=== PATIENT | male | born 1945 | race Two or more races ===

== ENCOUNTER 2018-06-15 16:40 | Emergency (ER) | payer BC, OTHER ==
[~2018-06-15] VITALS: Ht 167.6 cm; Wt 77.1 kg
[~2018-06-15 16:40] MED LIST: ASPI-630 PO; ASPI325T70 PO; HYDR-971 PO; INSU100I17 SQ; INSU100I27 SQ; INSU100V13 SQ; INSU100V31 SQ; LISI-338 PO; LISI10TA2 PO; METF10003 PO; METO25TA4 PO; PANT40TA5 PO; SIMV40TA3 PO
[2018-06-15 16:54] VITALS: BP 178/77
[2018-06-15 17:43] LABS: BASO # 0.1 x10^3/uL (0.0-0.2); BASO % 1 % (0-3); EOS # 0.2 x10^3/uL (0.0-0.7); EOS % 3 % (0-3); HEMATOCRIT 35.1 % (39.0-53.0); HEMOGLOBIN 11.7 g/dL (13.0-17.5); LYMPH # 1.6 x10^3/uL (1.0-4.8); LYMPH % 22 % (24-48); MEAN CORPUSCULAR HEMOGLOBIN 30 pg (25-35); MEAN CORPUSCULAR HGB CONC 33 g/dL (31-37); MEAN CORPUSCULAR VOLUME 89 fL (79-100); MONO # 0.6 x10^3/uL (0.0-1.1); MONO % 9 % (0-9); NEUT # 4.8 x10^3uL (1.8-7.7); NEUT % 66 % (31-73); PLATELET COUNT 227 x10^3/uL (140-400); RED BLOOD COUNT 3.96 x10^6/uL (4.30-5.70); RED CELL DISTRIBUTION WIDTH 14.5 % (11.5-14.5); WHITE BLOOD COUNT 7.3 x10^3/uL (4.0-11.0)
--- NOTE | 2018-06-15 17:43 | EKG ---
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
[2018-06-15 17:58] LABS: CALCIUM 8.8 mg/dL (8.5-10.1); CREATININE 1.4 mg/dL (0.7-1.3); GFR 49.5; POTASSIUM 4.5 mmol/L (3.5-5.1)
[2018-06-15 18:06] LABS: ALBUMIN 3.6 g/dL (3.4-5.0); ALBUMIN/GLOBULIN RATIO 0.9 (1.0-1.7); TOTAL BILIRUBIN 0.4 mg/dL (0.2-1.0); TOTAL PROTEIN 7.7 g/dL (6.4-8.2)
[2018-06-15] MEDS ORDERED: IV NORMAL SALINE 1000ML BAG 1,000 ML IV ONE (18:30)
--- NOTE | 2018-06-15 18:54 | RAD ---
EXAM: Cervical spine CT without contrast. HISTORY: Pain. TECHNIQUE: Computed tomographic images of the cervical spine were obtained without contrast. Multiplanar reformatting was performed. *One or more of the following individualized dose reduction techniques were utilized for this examination: 1. Automated exposure control. 2. Adjustment of the mA and/or kV according to patient size. 3. Use of iterative reconstruction technique. COMPARISON: None. FINDINGS: There is cervical curvature due to thoracic scoliosis. There is 3 mm anterolisthesis of C4 on C5, 2 mm retrolisthesis of C5 on C6 and 4 mm anterolisthesis of C7 on T1. There is degenerative endplate remodeling with disc space narrowing and osteophytosis primarily at C5-C6 and C6-C7. There are multiple endplate Schmorl's nodes. There is advanced facet arthropathy at multiple levels. There is no suspicious osseous lesion. There is no acute or subacute fracture. At C2-C3, there is a disc bulge. There is mild left facet arthropathy. There is mild left foraminal stenosis. At C3-C4, there is a posterior central disc protrusion superimposed on a disc bulge and endplate remodeling. There is mild right and moderate left facet arthropathy. There is uncovertebral arthropathy. There is no stenosis. At C4-C5, there is a posterior central disc protrusion superimposed on a disc bulge and endplate osteophytosis. There is mild right and moderate left facet arthropathy. There is uncovertebral arthropathy. There is mild left foraminal stenosis. At C5-C6, there is a left paracentral disc protrusion superimposed on a disc bulge and endplate osteophytosis. There is mild left facet arthropathy. There is left greater than right uncovertebral therapy. There is moderate left foraminal stenosis. At C6-C7, there is a disc bulge and endplate osteophytosis. There is no stenosis. IMPRESSION: 1. Multilevel degenerative change within the cervical spine, resulting in stenosis as described above. 2. Cervical curvature due to thoracic scoliosis and mild multilevel listhesis. 3. No acute osseous finding. Electronically signed by: Zaira Arevalo MD (06/15/2018 6:51 PM) [facility]
[2018-06-15] MEDS ORDERED: HYDROcodone/APAP 5/325MG 1 TAB TABLET PO ONE (19:15)
[2018-06-15] MEDS ORDERED: HYDR-971 PO (20:22)
--- NOTE | 2018-06-15 20:22 | PHYS DOC ---
Past Medical History Past Medical History: Diabetes-Type II, High Cholesterol, Hypertension Past Surgical History: Coronary Bypass Surgery, Other Additional Past Surgical Histo: Hernia, tooth extractions Alcohol Use: Occasionally Drug Use: None Adult General Chief Complaint Chief Complaint: Neck Pain HPI HPI Patient is a 72 year old male who presents with neck pain to the left side is now shooting up into his head. The patient states that it is worse when he turns his head. They are concerned because he has a history of open-heart surgery and they state that his only complaint at that time was pain radiating up into the left side of his neck. He denies chest pain, shortness of breath or diaphoresis. Review of Systems Review of Systems Constitutional: Denies fever or chills [] Respiratory: Denies cough or shortness of breath [] Cardiovascular: No additional information not addressed in HPI [] GI: Denies abdominal pain, nausea, vomiting, bloody stools or diarrhea [] : Denies dysuria or hematuria [] Musculoskeletal: See history of present illness Integument: Denies rash or skin lesions [] Neurologic: Denies headache, focal weakness or sensory changes [] Endocrine: Denies polyuria or polydipsia [] All other systems were reviewed and found to be within normal limits, except as documented in this note. Current Medications Current Medications Current Medications Medications (Trade) Dose Ordered Sig/[facility] Start Time Stop Time Status Last Admin Dose Admin Acetaminophen/ Hydrocodone Bitart (Lortab 5/325) 1 tab 1X ONCE 06/15/18 19:15 06/15/18 19:16 DC 06/15/18 19:30 1 TAB Sodium Chloride 1,000 ml @ 1,000 mls/hr 1X ONCE 06/15/18 18:30 06/15/18 19:29 DC 06/15/18 19:06 1,000 MLS/HR Allergies Allergies Allergies Coded Allergies Type Severity Reaction Last Updated Verified No Known Drug Allergies 03/14/17 No Physical Exam Physical Exam Constitutional: Well developed, well nourished, no acute distress, non-toxic appearance. [] Neck: Tenderness over left trapezius, no gross deformities noted, point spinal tenderness noted Cardiovascular:Heart rate regular rhythm, no murmur [] Lungs & Thorax: Bilateral breath sounds clear to auscultation [] Abdomen: Bowel sounds normal, soft, no tenderness, no masses, no pulsatile masses. [] Skin: Warm, dry, no erythema, no rash. [] Neurologic: Alert and oriented X 3, normal motor function, normal sensory function, no focal deficits noted. [] Psychologic: Affect normal, judgement normal, mood normal. [] Current Patient Data Vital Signs Vital Signs Date Time Temp Pulse Resp B/P (MAP) Pulse Ox O2 Delivery O2 Flow Rate FiO2 06/15/18 19:30 20 97 Room Air 06/15/18 16:54 97.9 68 178/77 (110) 97.9 Lab Values Laboratory Tests Test 06/15/18 17:30 White Blood Count 7.3 x10^3/uL (4.0-11.0) Red Blood Count 3.96 x10^6/uL (4.30-5.70) L Hemoglobin 11.7 g/dL (13.0-17.5) L Hematocrit 35.1 % (39.0-53.0) L Mean Corpuscular Volume 89 fL (79-100) Mean Corpuscular Hemoglobin 30 pg (25-35) Mean Corpuscular Hemoglobin Concent 33 g/dL (31-37) Red Cell Distribution Width 14.5 % (11.5-14.5) Platelet Count 227 x10^3/uL (140-400) Neutrophils (%) (Auto) 66 % (31-73) Lymphocytes (%) (Auto) 22 % (24-48) L Monocytes (%) (Auto) 9 % (0-9) Eosinophils (%) (Auto) 3 % (0-3) Basophils (%) (Auto) 1 % (0-3) Neutrophils # (Auto) 4.8 x10^3uL (1.8-7.7) Lymphocytes # (Auto) 1.6 x10^3/uL (1.0-4.8) Monocytes # (Auto) 0.6 x10^3/uL (0.0-1.1) Eosinophils # (Auto) 0.2 x10^3/uL (0.0-0.7) Basophils # (Auto) 0.1 x10^3/uL (0.0-0.2) Sodium Level 133 mmol/L (136-145) L Potassium Level 4.5 mmol/L (3.5-5.1) Chloride Level 101 mmol/L (98-107) Carbon Dioxide Level 22 mmol/L (21-32) Anion Gap 10 (6-14) Blood Urea Nitrogen 32 mg/dL (8-26) H Creatinine 1.4 mg/dL (0.7-1.3) H Estimated GFR (Cockcroft-Gault) 49.5 BUN/Creatinine Ratio 23 (6-20) H Glucose Level 377 mg/dL (70-99) H Calcium Level 8.8 mg/dL (8.5-10.1) Total Bilirubin 0.4 mg/dL (0.2-1.0) Aspartate Amino Transferase (AST) 22 U/L (15-37) Alanine Aminotransferase (ALT) 44 U/L (16-63) Alkaline Phosphatase 66 U/L (46-116) Creatine Kinase 167 U/L (39-308) Creatine Kinase MB (Mass) 2.2 ng/mL (0.0-3.6) Creatine Kinase MB Relative Index 1.3 % (0-4) Troponin I Quantitative < 0.017 ng/mL (0.000-0.055) Total Protein 7.7 g/dL (6.4-8.2) Albumin 3.6 g/dL (3.4-5.0) Albumin/Globulin Ratio 0.9 (1.0-1.7) L Laboratory Tests 06/15/18 17:30 Laboratory Tests 06/15/18 17:30 EKG EKG [] Radiology/Procedures Radiology/Procedures []Signed PATIENT: LONNY FIELD ACCOUNT: [id number] : 1945 LOCATION: ER AGE: 72 SEX: M EXAM STATUS: REG ER ORD. PHYSICIAN: MATILDE CHURCHILL APRN REASON: neck pain PROCEDURE: CT CERVICAL SPINE WO CONTRAST EXAM: Cervical spine CT without contrast. HISTORY: Pain. TECHNIQUE: Computed tomographic images of the cervical spine were obtained without contrast. Multiplanar reformatting was performed. *One or more of the following individualized dose reduction techniques were utilized for this examination: 1. Automated exposure control. 2. Adjustment of the mA and/or kV according to patient size. 3. Use of iterative reconstruction technique. COMPARISON: None. FINDINGS: There is cervical curvature due to thoracic scoliosis. There is 3 mm anterolisthesis of C4 on C5, 2 mm retrolisthesis of C5 on C6 and 4 mm anterolisthesis of C7 on T1. There is degenerative endplate remodeling with disc space narrowing and osteophytosis primarily at C5-C6 and C6-C7. There are multiple endplate Schmorl's nodes. There is advanced facet arthropathy at multiple levels. There is no suspicious osseous lesion. There is no acute or subacute fracture. At C2-C3, there is a disc bulge. There is mild left facet arthropathy. There is mild left foraminal stenosis. At C3-C4, there is a posterior central disc protrusion superimposed on a disc bulge and endplate remodeling. There is mild right and moderate left facet arthropathy. There is uncovertebral arthropathy. There is no stenosis. At C4-C5, there is a posterior central disc protrusion superimposed on a disc bulge and endplate osteophytosis. There is mild right and moderate left facet arthropathy. There is uncovertebral arthropathy. There is mild left foraminal stenosis. At C5-C6, there is a left paracentral disc protrusion superimposed on a disc bulge and endplate osteophytosis. There is mild left facet arthropathy. There is left greater than right uncovertebral therapy. There is moderate left foraminal stenosis. At C6-C7, there is a disc bulge and endplate osteophytosis. There is no stenosis. IMPRESSION: 1. Multilevel degenerative change within the cervical spine, resulting in stenosis as described above. 2. Cervical curvature due to thoracic scoliosis and mild multilevel listhesis. 3. No acute osseous finding. Electronically signed by: Zaira Quinonez MD (06/15/2018 6:51 PM) [facility] DICTATED and SIGNED BY: ZAIRA QUINONEZ MD DATE: 06/15/18 184 Course & Med Decision Making Course & Med Decision Making Pertinent Labs and Imaging studies reviewed. (See chart for details) []The patient was given a dose of pain medication in the emergency department. Dragon Disclaimer Dragon Disclaimer This electronic medical record was generated, in whole or in part, using a voice recognition dictation system. Departure Departure Impression: Primary Impression: Neck pain Disposition: 01 HOME, SELF-CARE Condition: STABLE Referrals: ADRIAN VILA MD (PCP) Patient Instructions: Degenerative Disk Disease Additional Instructions: Take the pain medication as directed. Do not drive or operate heavy machinery while taking this medication. Follow-up with your primary care provider for possible referral to neurosurgery. If worsening return to the emergency department. Scripts Hydrocodone/Apap 5-325 (NORCO 5-325 TABLET) 1 Each Tablet 1 TAB PO PRN Q6HRS PRN for PAIN, #14 TAB 0 Refills Prov: MATILDE CHURCHILL APRN 06/15/18 MATILDE CHURCHILL APRN Jun 15, 2018 20:22
== END 2018-06-15 20:30 | disposition home or self-care (01) ==
LOC: ER 16:40
DX: M54.2 Cervicalgia (principal); E78.00 Pure hypercholesterolemia, unspecified; I10 Essential (primary) hypertension; E11.9 Type 2 diabetes mellitus without complications; Z95.5 Presence of coronary angioplasty implant and graft
CPT/HCPCS: 36415; 72125; 80053; 82553; 84484; 85025; 93005; 99285; J7030

== ENCOUNTER → 2019-04-28 | Outpatient (CLI) | payer BC ==
[~2019-04-28] MED LIST changes: +HYDR-3164 PO; -HYDR-971 PO; -METF10003 PO; +METF10007 PO; -PANT40TA5 PO; +PANT40TA77 PO
[2019-04-28 16:53] LABS: ALBUMIN 3.6 g/dL (3.4-5.0); CALCIUM 8.5 mg/dL (8.5-10.1); CREATININE 1.5 mg/dL (0.7-1.3); GFR 45.6; PHOSPHORUS 2.7 mg/dL (2.6-4.7); POTASSIUM 4.8 mmol/L (3.5-5.1)
[2019-04-28 17:47] LABS: CREATININE,RANDOM URINE 203.4 mg/dL (Not Establ.)
[2019-04-29 05:10] LABS: CREAT RD UR 182.4 mg/dL (Not Estab.); MICRO CREAT RATIO 300.7 mg/g creat (0.0-30.0); MICROALB RD UR 548.4 ug/mL (Not Estab.)
== END | disposition home or self-care (01) ==
LOC: LAB 15:50
PROVIDERS: ATTEND Internal Medicine Nephrology
DX: E11.21 Type 2 diabetes mellitus with diabetic nephropathy (principal); E11.22 Type 2 diabetes mellitus with diabetic chronic kidney disease; I12.9 Hypertensive chronic kidney disease with stage 1 through stage 4 chronic kidney disease, or unspecified chronic kidney disease; N18.2 Chronic kidney disease, stage 2 (mild); E55.9 Vitamin D deficiency, unspecified; D64.9 Anemia, unspecified; R80.9 Proteinuria, unspecified
CPT/HCPCS: 36415; 80069; 82043; 82306; 82570; 83735; 84156

== ENCOUNTER → 2019-08-11 | Outpatient (CLI) | payer BC ==
[2019-08-11 08:48] LABS: BASO % 1 % (0-3); EOS # 0.2 x10^3/uL (0.0-0.7); EOS % 4 % (0-3); HEMATOCRIT 36.1 % (39.0-53.0); HEMOGLOBIN 12.1 g/dL (13.0-17.5); LYMPH # 1.4 x10^3/uL (1.0-4.8); LYMPH % 27 % (24-48); MEAN CORPUSCULAR HEMOGLOBIN 29 pg (25-35); MEAN CORPUSCULAR HGB CONC 34 g/dL (31-37); MEAN CORPUSCULAR VOLUME 88 fL (79-100); MONO # 0.5 x10^3/uL (0.0-1.1); MONO % 9 % (0-9); NEUT # 3.2 x10^3/uL (1.8-7.7); NEUT % 59 % (31-73); PLATELET COUNT 200 x10^3/uL (140-400); RED BLOOD COUNT 4.13 x10^6/uL (4.30-5.70); RED CELL DISTRIBUTION WIDTH 15.3 % (11.5-14.5); WHITE BLOOD COUNT 5.4 x10^3/uL (4.0-11.0)
--- NOTE | 2019-08-11 08:58 | RAD ---
EXAM: Renal sonogram. HISTORY: Renal insufficiency. TECHNIQUE: Sonographic imaging of the kidneys and bladder was performed. COMPARISON: 03/08/2016. FINDINGS: The right kidney measures 12.8 cm uwtr-gz-ktnw. The left kidney measures 12.8 cm kbvv-ls-hkal. No solid or cystic renal lesion is seen. There is no hydronephrosis. The urinary bladder is unremarkable. The post void bladder residual is 14 cc. IMPRESSION: 1. Unremarkable kidneys. 2. Small post void bladder residual of 14 cc. Electronically signed by: Zaira Arevalo MD (08/11/2019 8:55 AM) [place] [id number]
[2019-08-11 09:30] LABS: ALBUMIN 3.5 g/dL (3.4-5.0); ALBUMIN/GLOBULIN RATIO 0.9 (1.0-1.7); CALCIUM 8.9 mg/dL (8.5-10.1); CREATININE 1.1 mg/dL (0.7-1.3); FREE T4 0.92 ng/dL (0.76-1.46); GFR 65.3; POTASSIUM 4.3 mmol/L (3.5-5.1); THYROID STIM HORMONE (TSH) 6.216 uIU/mL (0.358-3.74); TOTAL BILIRUBIN 0.3 mg/dL (0.2-1.0); TOTAL PROTEIN 7.4 g/dL (6.4-8.2)
[2019-08-11 09:46] LABS: CHOLESTEROL/HDL RATIO 4.6
[2019-08-12 08:13] LABS: HEMOGLOBIN A1C 8.8 % (4.8-5.6)
== END | disposition home or self-care (01) ==
LOC: US 08:14
PROVIDERS: ATTEND Internal Medicine Nephrology
DX: Z12.5 Encounter for screening for malignant neoplasm of prostate (principal); E11.22 Type 2 diabetes mellitus with diabetic chronic kidney disease; N18.3 Chronic kidney disease, stage 3 (moderate); D64.9 Anemia, unspecified; E03.9 Hypothyroidism, unspecified; E78.5 Hyperlipidemia, unspecified
CPT/HCPCS: 36415; 76770; 80053; 80061; 82728; 83036; 84153; 84439; 84443; 85025; G0103

== ENCOUNTER → 2019-09-11 | Outpatient (CLI) | payer BC ==
[~2019-09-11] MED LIST changes: +SIMV40TA18 PO; -SIMV40TA3 PO
--- NOTE | 2019-09-11 11:27 | CARD ---
MR#: [id number] Date of Study: 09/11/2019 Ordering Physician: HANK LAYTON, Referring Physician: HANK LAYTON, Tech: Richa Del Real APPROVED REPORT EXAM: Two-dimensional and M-mode echocardiogram with Doppler and color Doppler. Other Information Quality : AverageHR: 67bpm Technically limited study due to body habitus. INDICATION CAD 2D DIMENSIONS RVDd3.0 (2.9-3.5cm)IVSd1.3 (0.7-1.1cm) Aortic Root(2D)2.6 (2.0-3.7cm)LVDd4.6 (3.9-5.9cm) LVOT Diameter2.0 (1.8-2.4cm)PWd0.8 (0.7-1.1cm) LVDs3.2 (2.5-4.0cm)FS (%) 32.1 % SV60.2 mlLVEF(%)60.4 (>50%) Aortic Valve AoV Peak Chris.138.3cm/sAoV VTI27.8cm AO Peak GR.7.6mmHgLVOT Peak Chris.106.1cm/s LVOT VTI 21.65cmAO Mean GR.5mmHg TATIANA (VMAX)1.78tm2PEB (VTI)2.41cm2 Mitral Valve MV E Psjbalaq18.9cm/sMV DECEL WKUW119zr MV A Uudovuzj24.5cm/sMV UCQ05zu E/A Ratio1.0MVA (PHT)3.17cm2 TDI E/Lateral E'9.7E/Medial E'16.3 Pulmonary Valve PV Peak Anonuyjf30.6cm/sPV Peak Grad.4mmHg Tricuspid Valve TR P. Zzlywyuv688wp/sRAP CTFBSYWK5dbEx TR Peak Gr.48fcLyRQJA30agKw Pulmonary Vein S1 Ybfxidwx57.1cm/sD2 Tbrlndwx37.5cm/s PVa zoadeigk568wphc LEFT VENTRICLE The left ventricle is normal size. There is mild septal left ventricular hypertrophy. The left ventri cular systolic function is normal and the ejection fraction is within normal range. The Ejection Frac tion is 60-65%. There is normal LV segmental wall motion. Transmitral Doppler flow pattern is Grade I I-pseudonormal filling dynamics. RIGHT VENTRICLE The right ventricle is normal size. The right ventricular systolic function is normal. ATRIA The left atrium is mildly to moderately dilated. The right atrium size is normal. The interatrial sep sumeet is intact with no evidence for an atrial septal defect or patent foramen ovale as noted on 2-D or Doppler imaging. AORTIC VALVE The aortic valve is mildly thickened but opens well. Doppler and Color Flow revealed no significant a ortic regurgitation. There is no significant aortic valvular stenosis. MITRAL VALVE The mitral valve is thickened but opens well. There is no evidence of mitral valve prolapse. There is no mitral valve stenosis. Doppler and Color-flow revealed mild mitral regurgitation. TRICUSPID VALVE The tricuspid valve is normal in structure and function. Doppler and Color Flow revealed mild tricusp id regurgitation with an estimated PAP of 31 mmHg. There is no tricuspid valve stenosis. PULMONIC VALVE Doppler and Color Flow revealed no pulmonic valvular regurgitation. There is no pulmonic valvular nesha nosis. GREAT VESSELS The aortic root is normal in size. The ascending aorta is normal in size. The IVC is normal in size a nd collapses >50% with inspiration. PERICARDIAL EFFUSION There is no pleural effusion. There is no evidence of significant pericardial effusion. Critical Notification Critical Value: No <Conclusion> The left ventricular systolic function is normal and the ejection fraction is within normal range. Th e Ejection Fraction is 60-65%. There is normal LV segmental wall motion. Doppler and Color Flow revealed mild tricuspid regurgitation with an estimated PAP of 31 mmHg. Signed by : Hank Layton, Electronically Approved : 09/11/2019 11:26:18
== END | disposition home or self-care (01) ==
LOC: ECHO 10:37
PROVIDERS: ATTEND Internal Medicine Cardiovascular Disease
DX: I08.0 Rheumatic disorders of both mitral and aortic valves (principal); I11.9 Hypertensive heart disease without heart failure; I25.10 Atherosclerotic heart disease of native coronary artery without angina pectoris
CPT/HCPCS: 93306

== ENCOUNTER → 2020-03-23 | Outpatient (CLI) | payer BC ==
--- NOTE | 2020-03-23 10:53 | RAD ---
MR#: [id number] Date of Study: 03/23/2020 Ordering Physician: HANK LAYTON, Referring Physician: HANK LAYTON, Tech: Rickie Ward MBA, RDMS, RVT, RDCS, RTR APPROVED REPORT Patient Location: OUT-PATIENT Indications AAA htn Duplex Results A/PTransverseLongitudinal Proximal Aorta 2.4cm1.3cm Mid Aorta 1.7cm1.7cm Distal Aorta 1.8cm1.2cm Rt. Common Iliac Artery1.2cm Lt. Common Iliac Artery .8cm Doppler VelocityWaveform Proximal Aorta 115.0 cm/sec Aorta Mid. 185.0 cm/sec Distal Aorta 189.0 cm/sec Findings Technically limited study. Grossly no obvious evidence of abdominal aortic aneurysm. Measurements a s noted above. Mildly elevated velocities in the aorta but no focal obstruction identified. Critical Notification Critical Value: No <Conclusion> 1. No significant abdominal aortic aneurysm noted. Signed by : Hank Layton, Electronically Approved : 03/23/2020 10:52:23
== END | disposition home or self-care (01) ==
LOC: US 11:00
PROVIDERS: ATTEND Internal Medicine Cardiovascular Disease
DX: I10 Essential (primary) hypertension (principal); I71.4 Abdominal aortic aneurysm, without rupture
CPT/HCPCS: 76770

== ENCOUNTER → 2020-04-27 | Outpatient (CLI) | payer BC ==
[2020-04-27 10:19] LABS: HEMATOCRIT 38.2 % (39.0-53.0); HEMOGLOBIN 13.2 g/dL (13.0-17.5)
[2020-04-27 10:37] LABS: CREATININE,RANDOM URINE 195.2 mg/dL (Not Establ.)
[2020-04-27 10:38] LABS: ALBUMIN 2.8 g/dL (3.4-5.0); CALCIUM 8.4 mg/dL (8.5-10.1); CREATININE 1.4 mg/dL (0.7-1.3); GFR 49.3; PHOSPHORUS 2.9 mg/dL (2.6-4.7); POTASSIUM 4.2 mmol/L (3.5-5.1)
[2020-04-27 19:09] LABS: MICROALB RD UR 1423.1 ug/mL (Not Estab.)
[2020-04-27 20:08] LABS: CALCIUM PTH 8.8 mg/dL (8.6-10.2); CREATININE PTH 1.15 mg/dL (0.76-1.27); PTH INTACT 15 pg/mL (15-65)
== END | disposition home or self-care (01) ==
LOC: LAB 09:59
PROVIDERS: ATTEND Internal Medicine Nephrology
DX: N17.9 Acute kidney failure, unspecified (principal); E11.21 Type 2 diabetes mellitus with diabetic nephropathy; R80.9 Proteinuria, unspecified; I12.9 Hypertensive chronic kidney disease with stage 1 through stage 4 chronic kidney disease, or unspecified chronic kidney disease; N18.2 Chronic kidney disease, stage 2 (mild); E55.9 Vitamin D deficiency, unspecified; D64.9 Anemia, unspecified; Z68.35 Body mass index [BMI] 35.0-35.9, adult
CPT/HCPCS: 36415; 80069; 82043; 82306; 82570; 83970; 84156; 85014; 85018

== ENCOUNTER → 2020-09-09 | Outpatient (CLI) | payer BC ==
[~2020-09-09] MED LIST changes: +REGADENOSON 0.4 MG/5 ML DISP.SYRIN. IV ONE
--- NOTE | 2020-09-09 10:13 | RAD ---
MR#: [id number] Date of Study: 09/09/2020 Ordering Physician: HANK LAYTON, Referring Physician: HANK LAYTON, Tech: Carmel Haque, KRISTEN, RVT, RTR APPROVED REPORT Patient Location: OUT-PATIENT Laterality:Bilateral Indications Carotid Artery Disease Doppler Spectral Velocity Analysis Right Left pCCA 152/18 cm/spCCA 165/24 cm/s mCCA 102/13 cm/smCCA 124/17 cm/s dCCA 105/18 cm/sdCCA 118/16 cm/s Bulb 93/15 cm/sBulb 131/21 cm/s ECA 143/10 cm/sECA 108/10 cm/s pICA 91/20 cm/spICA 109/24 cm/s Rajan 93/26 cm/smICA 114/25 cm/s dICA 113/24 cm/sdICA 102/25 cm/s Vert. 17/5 cm/sVert. 61/17 cm/s ICA/CCA 1.00ICA/CCA 0.91 Findings Grayscale images demonstrate bilateral intimal hyperplasia involving the common carotid, external and internal carotid vessels. Grayscale images demonstrate mild plaque diffusely. Based on velocity criteria there is moderate stenosis involving the common carotid arteries but this is likely related to tortuosity rather than true plaque obstruction. Overall 0 to less than 50% stenosis based on velocity criteria in the internal carotid arteries bilat erally. The right vertebral artery is not well visualized and may either be occluded or severely diseased. T he left vertebral artery demonstrates normal vertebral velocities in an antegrade fashion. Critical Notification Critical Value: No <Conclusion> 1. No significant internal carotid artery disease bilaterally 2. Probable occlusion or severe disease involving the right vertebral artery 3. Tortuous proximal common carotid arteries but no clear obstruction evident. Signed by : Hank Layton, Electronically Approved : 09/09/2020 10:12:37
--- NOTE | 2020-09-09 16:08 | RAD ---
MR#: [id number] Date of Study: 09/09/2020 Ordering Physician: HANK LAYTON, Referring Physician: FABY SHEPHERD Tech: RT Oleg Funk) (N) APPROVED REPORT Test Type: Pharmacological Stress Nurse/Tech: Chantel Gonzalez RN Test Indications: CAD Cardiac History: Hypertension, Diabetes,CAD Medications: See Electronic Medical Record Medical History: See Electronic Medical Record Resting ECG: SR Resting Heart Rate: 60 bpm Resting Blood Pressure: 161/68mmHg Pretest Chest Pain: No chest pain Nurse/Tech Notes S1,S2 and lungs clear to auscultation. Consent: The procedure was explained to the patient in lay terms. Informed consent was witnessed. Anival eout was entered into [employer]. History and Stress Test performed by RT Blessing (R) (N) Pharm. Details Pharmacologic stress testing was performed using 0.4mg per 5ml of regadenoson given intravenously ove r 7-10 seconds. Stress Symptoms Dyspnea POST EXERCISE Reason for Termination: Infusion complete Target HR: Yes Max HR: 144 bpm 119% of Maximum Predicted HR: 121 bpm Max Blood Pressure: 161/68mmHg Blood Pressure response to exercise: Normal blood pressure response during stress. Heart Rate response to exercise: WNL Chest Pain: No. Arrhythmia: No. ST Change: No. INTERPRETATION Stress EKG Conclusion: Baseline EKG showed sinus rhythm with old inferior infarct. No ischemic lieberman es at peak stress. No arrhythmias. Imaging Protocol IMAGE PROTOCOL: Rest Tc-99m/stress Tc-99m 1 day Rest: Stress: Viability: Radiopharm.Tc99m WnyywyxwsHp04o Sestamibi Dose10.6mCi 32mCi Duration 15min. 10min. Img Date 09/09/2020 09/09/2020 Inj-Img Oico79wkk. 60min. Rest Admin Site:IV - Right HandAdministrator:ANTON Monroy, ARRT (R)(N) Stress Admin Site: IV - Right HandAdministrator: ANTON Monroy, ARRT (R)(N) STRESS DATA End Diast. Vol.141.0mlAv. Heart Rate66.0bpm End Syst. Vol.61.0mlCO Index BSA0.0L/min Myocardial Ndhs368.0gEject. Eaklnsfs67.0% Stress Rates Pk. Fill Rate2.32EDV/secLVtime Pk. Fill 242.42msec Pk. Empty Rate2.73ESV/secLVtime Pk. Jpysr327.45msec 1/3 Pk. Fill0.38EDV/sec Stress Scores Regional WT1.00Summed WT9.00 Regional WM0.00Summed WM15.00 LV Perfusion Scintigraphic images moderate fixed defect involving the inferolateral wall consistent with previous myocardial infarction without any reversibility. Wall Motion Abnormal septal motion most probably secondary to postoperative state. The ejection fraction is calc ulated at 48%. LV Perf. Quant 17 Seg. SSS14.00 17 Seg. SRS12.00 17 Seg. SDS3.00 Stress Defect Extent (% LAD)15.60Rest Defect Extent (% LAD)11.30Rev. Defect Extent (% LAD)0.00 Stress Defect Extent (% LCX) 42.50Rest Defect Extent (% LCX)53.80Rev. Defect Extent (% LCX)0.00 Stress Defect Extent (% RCA)25.60Rest Defect Extent (% RCA)20.00Rev. Defect Extent (% RCA)0.00 Stress Defect Extent (% KEILY)25.00Rest Defect Extent (% KEILY)25.20Rev. Defect Extent (% KEILY)0.00 Conclusion 1. Regadenoson cardioisotope stress test showed moderate sized inferolateral wall infarct without any ischemia. 2. Abnormal septal motion most probably secondary to postoperative state. The ejection fraction is c alculated at 48%. 3. Low risk for cardiac events. Signed by : Roly Vaughn, Electronically Approved : 09/09/2020 16:08:03
--- NOTE | 2020-09-09 16:26 | CARD ---
MR#: [id number] Date of Study: 09/09/2020 Ordering Physician: HANK LAYTON, Referring Physician: HANK LAYTON, Tech: Carmel Bagley APPROVED REPORT EXAM: Two-dimensional and M-mode echocardiogram with Doppler and color Doppler. Other Information Quality : AverageHR: 62bpm INDICATION Cardiac Disease: CAD RISK FACTORS Hypertension Hyperlipidemia Diabetes 2D DIMENSIONS Left Atrium(2D)4.0 (1.6-4.0cm)IVSd1.2 (0.7-1.1cm) Aortic Root(2D)3.2 (2.0-3.7cm)LVDd4.5 (3.9-5.9cm) LVOT Diameter2.0 (1.8-2.4cm)PWd1.1 (0.7-1.1cm) LVDs2.8 (2.5-4.0cm)FS (%) 37.4 % SV61.4 mlLVEF(%)67.6 (>50%) Aortic Valve AoV Peak Chris.125.0cm/sAoV VTI25.6cm AO Peak GR.6.3mmHgLVOT Peak Chris.92.1cm/s LVOT VTI 21.64cmAO Mean GR.4mmHg TATIANA (VMAX)1.81vg0FUX (VTI)2.62cm2 Mitral Valve MV E Wtsxhvax09.5cm/sMV DECEL MTTQ419ew MV A Qerrbcza95.5cm/sMV DMK19lf E/A Ratio0.8MVA (PHT)3.72cm2 TDI E/Lateral E'9.7E/Medial E'18.1 Pulmonary Valve PV Peak Kmgncgvs000.0cm/sPV Peak Grad.5mmHg Tricuspid Valve TR P. Lblutbxb212op/sRAP TCMTGEKC9btDg TR Peak Gr.05vmZmVYIN98fqQj Pulmonary Vein S1 Zwywykzl29.3cm/sD2 Bywrntvs09.7cm/s PVa gnsguisy982ucet LEFT VENTRICLE The left ventricle is normal size. There is borderline to mild concentric left ventricular hypertroph y. The left ventricular systolic function is normal. The Ejection Fraction is 55-60%. There is normal LV segmental wall motion. Transmitral Doppler flow pattern is Grade I-abnormal relaxation pattern. RIGHT VENTRICLE The right ventricle is normal size. There is normal right ventricular wall thickness. The right ventr icular systolic function is normal. ATRIA The left atrium size is normal. The right atrium size is normal. The interatrial septum is intact wit h no evidence for an atrial septal defect or patent foramen ovale as noted on 2-D or Doppler imaging. AORTIC VALVE The aortic valve is thickened but opens well. Doppler and Color Flow revealed no significant aortic r egurgitation. There is no significant aortic valvular stenosis. Calculated aortic valve area is 2.58 cm2 with maximum pressure gradient of 8 mmHg and mean pressure gradient of 4 mmHg. MITRAL VALVE The mitral valve is normal in structure and function. There is no evidence of mitral valve prolapse. There is no mitral valve stenosis. Doppler and Color-flow revealed trace mitral regurgitation. TRICUSPID VALVE The tricuspid valve is normal in structure and function. Doppler and Color Flow revealed trace tricus pid regurgitation with an estimated PAP of 33 mmHg. There is no tricuspid valve stenosis. PULMONIC VALVE The pulmonic valve is not well visualized. Doppler and Color Flow revealed trace pulmonic valvular re gurgitation. GREAT VESSELS The aortic root is normal in size. The IVC was not well visualized. PERICARDIAL EFFUSION There is no evidence of significant pericardial effusion. Critical Notification Critical Value: No <Conclusion> The left ventricular systolic function is normal. The Ejection Fraction is 55-60%. There is normal LV segmental wall motion. Transmitral Doppler flow pattern is Grade I-abnormal relaxation pattern. Trace mitral regurgitation. Trace tricuspid regurgitation with an estimated PAP of 33 mmHg. There is no evidence of significant pericardial effusion. Signed by : Roly Vaughn, Electronically Approved : 09/09/2020 16:26:06
== END ==
LOC: ECHO 07:26
PROVIDERS: ATTEND Internal Medicine Cardiovascular Disease
DX: I65.23 Occlusion and stenosis of bilateral carotid arteries (principal); I11.9 Hypertensive heart disease without heart failure; I77.3 Arterial fibromuscular dysplasia; Q25.46 Tortuous aortic arch
CPT/HCPCS: 78452; 93017; 93306; 93880; A9500; J2785

== ENCOUNTER → 2020-09-20 | Outpatient (CLI) | payer BC ==
[~2020-09-20] MED LIST changes: -REGADENOSON 0.4 MG/5 ML DISP.SYRIN. IV ONE
[2020-09-20 08:22] LABS: ALBUMIN 3.3 g/dL (3.4-5.0); CALCIUM 8.8 mg/dL (8.5-10.1); CREATININE 1.2 mg/dL (0.7-1.3); GFR 58.7; PHOSPHORUS 3.6 mg/dL (2.6-4.7); POTASSIUM 3.8 mmol/L (3.5-5.1)
== END ==
LOC: LAB 07:33
PROVIDERS: ATTEND Internal Medicine Nephrology
DX: I12.9 Hypertensive chronic kidney disease with stage 1 through stage 4 chronic kidney disease, or unspecified chronic kidney disease (principal); E11.22 Type 2 diabetes mellitus with diabetic chronic kidney disease; N18.2 Chronic kidney disease, stage 2 (mild); N17.9 Acute kidney failure, unspecified; E11.21 Type 2 diabetes mellitus with diabetic nephropathy; R80.9 Proteinuria, unspecified; E55.9 Vitamin D deficiency, unspecified; D64.9 Anemia, unspecified; Z68.34 Body mass index [BMI] 34.0-34.9, adult
CPT/HCPCS: 36415; 80069

== ENCOUNTER 2020-11-07 09:08 | Emergency (ER) | payer BC ==
[~2020-11-07] VITALS: Ht 167.6 cm; Wt 78.0 kg
[~2020-11-07 09:08] MED LIST changes: -LISI-338 PO; +LISI-517 PO; +LISI10TA16 PO; -LISI10TA2 PO
--- NOTE | 2020-11-07 09:21 | PHYS DOC ---
Past Medical History Past Medical History: Diabetes-Type II, High Cholesterol, Hypertension Past Surgical History: Coronary Bypass Surgery, Other Additional Past Surgical Histo: Hernia, tooth extractions Smoking Status: Former Smoker Alcohol Use: Occasionally Drug Use: None Adult General Chief Complaint Chief Complaint: CHEST PAIN HPI HPI Patient is a 75 year old male with an extensive past medical history including significant cardiovascular and endovascular disease now presenting emergency department complaining of new onset of chest pain. Patient states he has been having the same chest pain for approximately 3 months described as an aching pain in the right lateral chest which is worse on inspiration. Patient states that an aching sensation. Denies any changes with the last few weeks. Cannot tell me why he decided to come in this morning. 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 Denies any dizziness, headaches, fever, chills, cough, nausea or vomiting Review of Systems Review of Systems Constitutional: Denies fever or chills [] Eyes: Denies change in visual acuity, redness, or eye pain [] HENT: Denies nasal congestion or sore throat [] Respiratory: Denies cough or shortness of breath [] Cardiovascular: No additional information not addressed in HPI [] GI: Denies abdominal pain, nausea, vomiting, bloody stools or diarrhea [] : Denies dysuria or hematuria [] Musculoskeletal: Denies back pain or joint pain [] Integument: Denies rash or skin lesions [] Neurologic: Denies headache, focal weakness or sensory changes [] Endocrine: Denies polyuria or polydipsia [] All other systems were reviewed and found to be within normal limits, except as documented in this note. Current Medications Current Medications Current Medications Medications (Trade) Dose Ordered Sig/Raul Start Time Stop Time Status Last Admin Dose Admin Info (CONTRAST GIVEN -- Rx MONITORING) 1 each PRN DAILY PRN 11/07/20 11:45 11/09/20 11:44 Iohexol (Omnipaque 350 Mg/ml) 80 ml 1X ONCE 11/07/20 11:30 11/07/20 11:31 DC 11/07/20 11:50 80 ML Morphine Sulfate (Morphine Sulfate) 4 mg 1X ONCE 11/07/20 11:00 11/07/20 11:01 DC 11/07/20 11:12 4 MG Sodium Chloride 500 ml @ 500 mls/hr 1X ONCE 11/07/20 10:15 11/07/20 11:14 DC 11/07/20 10:14 500 MLS/HR Allergies Allergies Allergies Coded Allergies Type Severity Reaction Last Updated Verified No Known Drug Allergies 03/14/17 No Physical Exam Physical Exam Constitutional: Well developed, well nourished, no acute distress, non-toxic appearance. [] HENT: Normocephalic, atraumatic, bilateral external ears normal, oropharynx moist, no oral exudates, nose normal. [] Eyes: PERRLA, EOMI, conjunctiva normal, no discharge. [] Neck: Normal range of motion, no tenderness, supple, no stridor. [] Cardiovascular:Heart rate regular rhythm, no murmur Lungs & Thorax: Bilateral breath sounds clear to auscultation. Right anterior chest wall tenderness over the right fifth and sixth intercostal space Abdomen: Bowel sounds normal, soft, no tenderness, no masses, no pulsatile masses. [] Skin: Warm, dry, no erythema, no rash. [] Back: No tenderness, no CVA tenderness. [] Extremities: No tenderness, no cyanosis, no clubbing, ROM intact, no edema. [] Neurologic: Alert and oriented X 3, normal motor function, normal sensory function, no focal deficits noted. [] Psychologic: Affect normal, judgement normal, mood normal. [] Current Patient Data Vital Signs Vital Signs Date Time Temp Pulse Resp B/P (MAP) Pulse Ox O2 Delivery O2 Flow Rate FiO2 11/07/20 11:12 18 94 Room Air 11/07/20 10:11 74 190/79 (116) 11/07/20 09:16 98.2 98.2 Lab Values Laboratory Tests Test 11/07/20 09:12 White Blood Count 15.2 x10^3/uL (4.0-11.0) H Red Blood Count 4.09 x10^6/uL (4.30-5.70) L Hemoglobin 12.7 g/dL (13.0-17.5) L Hematocrit 37.4 % (39.0-53.0) L Mean Corpuscular Volume 92 fL (79-100) Mean Corpuscular Hemoglobin 31 pg (25-35) Mean Corpuscular Hemoglobin Concent 34 g/dL (31-37) Red Cell Distribution Width 14.4 % (11.5-14.5) Platelet Count 156 x10^3/uL (140-400) Neutrophils (%) (Auto) 84 % (31-73) H Lymphocytes (%) (Auto) 7 % (24-48) L Monocytes (%) (Auto) 8 % (0-9) Eosinophils (%) (Auto) 0 % (0-3) Basophils (%) (Auto) 0 % (0-3) Neutrophils # (Auto) 12.8 x10^3/uL (1.8-7.7) H Lymphocytes # (Auto) 1.1 x10^3/uL (1.0-4.8) Monocytes # (Auto) 1.2 x10^3/uL (0.0-1.1) H Eosinophils # (Auto) 0.0 x10^3/uL (0.0-0.7) Basophils # (Auto) 0.1 x10^3/uL (0.0-0.2) Segmented Neutrophils % 81 % (35-66) H Band Neutrophils % 7 % (0-9) Lymphocytes % 6 % (24-48) L Monocytes % 6 % (0-10) Platelet Estimate Adequate (ADEQUATE) D-Dimer (Kira) 2.43 ug/mlFEU (0.00-0.50) H Sodium Level 137 mmol/L (136-145) Potassium Level 3.9 mmol/L (3.5-5.1) Chloride Level 99 mmol/L (98-107) Carbon Dioxide Level 24 mmol/L (21-32) Anion Gap 14 (6-14) Blood Urea Nitrogen 21 mg/dL (8-26) Creatinine 1.5 mg/dL (0.7-1.3) H Estimated GFR (Cockcroft-Gault) 45.4 BUN/Creatinine Ratio 14 (6-20) Glucose Level 310 mg/dL (70-99) H Calcium Level 8.8 mg/dL (8.5-10.1) Magnesium Level 1.6 mg/dL (1.8-2.4) L Total Bilirubin 0.7 mg/dL (0.2-1.0) Aspartate Amino Transferase (AST) 50 U/L (15-37) H Alanine Aminotransferase (ALT) 97 U/L (16-63) H Alkaline Phosphatase 67 U/L (46-116) Troponin I Quantitative 0.021 ng/mL (0.000-0.055) Total Protein 6.7 g/dL (6.4-8.2) Albumin 3.3 g/dL (3.4-5.0) L Albumin/Globulin Ratio 1.0 (1.0-1.7) Laboratory Tests 11/07/20 09:12 Laboratory Tests 11/07/20 09:12 EKG EKG [] Radiology/Procedures Radiology/Procedures [] Course & Med Decision Making Course & Med Decision Making Pertinent Labs and Imaging studies reviewed. (See chart for details) 75-year-old male presenting with nonspecific right anterior chest pain. Patient does have some pleurisy which does raise concern for pulmonary embolism but the patient currently does not have any other significant risk factors. He has the patient is a 10 obtain D-dimer. In addition will obtain ACS work-up although I feel that if the patient has been having this pain for 3 months he has no significant findings on labs and EKG be safely discharged. Labs obtained and without any significant evidence of severe underlying etiology. This is negative. CT angiogram of the chest without any evidence of pulmonary embolism. At this time feel patient can be safely discharged. I spoken with the patient and her caregivers. I explained the patient's condition, diagnoses and treatment plan based on the information available to me at this time. I have answered the patient and her caregiver's questions and addressed any concerns. The patient and her caregivers have a good understanding of patient's diagnosis, condition and treatment plan as can be expected at this point. Vital signs have been stable. Patient's condition is stable and appropriate for discharge from the emergency department. Patient will pursue further outpatient evaluation with primary care physician or other designated or consulting physician as outlined in the discharge instructions. The patient and/or caregivers are agreeable to this plan of care and follow-up instructions have been explained in detail. The patient and/or caregivers have received these instructions in written form and have expressed an understanding of the discharge instructions. The patient and/or caregivers are aware that any significant change of condition or worsening of symptoms should prompt immediate return to this or the closest emergency department or call to 911. Cate Disclaimer Dragon Disclaimer This electronic medical record was generated, in whole or in part, using a voice recognition dictation system. Departure Departure Impression: Primary Impression: Chest wall muscle strain Disposition: 01 DC HOME SELF CARE/HOMELESS Referrals: ROSALIO CHOI MD (PCP) Patient Instructions: Chest Pain (Nonspecific) Additional Instructions: EMERGENCY DEPARTMENT GENERAL DISCHARGE INSTRUCTIONS Thank you for coming to [facility] Emergency Department (ED) today and trusting us with you care. We trust that you had a positive experience in our Emergency Department. If you wish to speak to the department management, you may call the Director at [phone]. YOUR FOLLOW UP INSTRUCTIONS ARE FOLLOWS: 1. Do you have a private Doctor? If you do not have a private doctor, please ask for a resource list of physicians or clinics that may be able to assist you with follow up care. 2. The Emergency Physicain has interpreted your x-rays. The X-Ray specialist will also review them. If there is a change in the findings, you will be notified in 48 hours when at all possible. 3. A lab test or culture has been done, your results will be reviewed and you will be notified if you need a change in treatment. ADDITIONAL INSTRUCTIONS AND INFORMATION: 1. Your care today has been supervised by a physician who is specially trained in emergency care. Many problems require more than one evaluation for a complete diagnosis and treatment. We recommend that you schedule your follow up appointment as recommended to ensure complete treatment of you illness or injury. If you are unable to obtain follow up care and continue to have a problem, or if your condition worsens, we recommend that you return to the ED. 2. We are not able to safely determine your condition over the phone nor are we able to give sound medical advice over the phone. For these safety reasons, if you call for medical advice we will ask you to come to the ED for further evaluation. 3. If you have any questions regarding these discharge instructions please call the ED at [phone]. SAFETY INFORMATION: In the interest of safety, wellness, and injury prevention; we encourage you to wear your sealbelt, if you smoke; quite smoking, and we encourage family to use a protective helmet for bicycling and other sporting events that present an increased risk for head injury. IF YOUR SYMPTOMS WORSEN OR NEW SYMPTOMS DEVELOP, OR YOU HAVE CONCERNS ABOUT YOUR CONDITION; OR IF YOUR CONDITION WORSENS WHILE YOU ARE WAITING FOR YOUR FOLLOW UP APPOINTMENT; EITHER CONTACT YOUR PRIMARY CARE DOCTOR, THE PHYSICIAN WHOSE NAME AND NUMBER YOU WERE GIVEN, OR RETURN TO THE ED IMMEDIATELY. Scripts Cyclobenzaprine Hcl (CYCLOBENZAPRINE HCL) 10 Mg Tablet 1 TAB PO TID, #21 TAB Prov: EFRA CHESTER MD 11/07/20 EFRA CHESTER MD Nov 07, 2020 09:21
[2020-11-07 09:35] LABS: BASO # 0.1 x10^3/uL (0.0-0.2); BASO % 0 % (0-3); EOS % 0 % (0-3); HEMATOCRIT 37.4 % (39.0-53.0); HEMOGLOBIN 12.7 g/dL (13.0-17.5); LYMPH # 1.1 x10^3/uL (1.0-4.8); LYMPH % 7 % (24-48); MEAN CORPUSCULAR HEMOGLOBIN 31 pg (25-35); MEAN CORPUSCULAR HGB CONC 34 g/dL (31-37); MEAN CORPUSCULAR VOLUME 92 fL (79-100); MONO # 1.2 x10^3/uL (0.0-1.1); MONO % 8 % (0-9); NEUT # 12.8 x10^3/uL (1.8-7.7); NEUT % 84 % (31-73); PLATELET COUNT 156 x10^3/uL (140-400); RED BLOOD COUNT 4.09 x10^6/uL (4.30-5.70); RED CELL DISTRIBUTION WIDTH 14.4 % (11.5-14.5); WHITE BLOOD COUNT 15.2 x10^3/uL (4.0-11.0)
[2020-11-07 09:43] LABS: CALCIUM 8.8 mg/dL (8.5-10.1); CREATININE 1.5 mg/dL (0.7-1.3); GFR 45.4; POTASSIUM 3.9 mmol/L (3.5-5.1)
[2020-11-07 09:48] LABS: ALBUMIN 3.3 g/dL (3.4-5.0); MAGNESIUM 1.6 mg/dL (1.8-2.4); TOTAL BILIRUBIN 0.7 mg/dL (0.2-1.0); TOTAL PROTEIN 6.7 g/dL (6.4-8.2)
--- NOTE | 2020-11-07 10:04 | RAD ---
EXAMINATION: XR CHEST 1V CLINICAL HISTORY: Chest pain EXAM DATE/TIME: 11/07/2020 9:18 AM COMPARISON: 07/31/2016 FINDINGS: Lines, Tubes, and Devices: None. Cardiomediastinal Silhouette: Normal heart size. Aortic atherosclerotic calcification. Lungs and Pleura: Pulmonary hypoexpansion with mild diffuse interstitial prominence. Mild curvilinear subsegmental atelectasis and/or scarring in the right midlung zone and left lower lung zone. No defi nite focal airspace consolidation or pleural effusion. Bones and Soft Tissues: Median sternotomy wires and paramediastinal surgical clips. IMPRESSION: No definitive evidence of acute cardiopulmonary abnormality. Nonspecific mild diffuse interstitial prominence, possibly chronic interstitial changes. Electronically signed by: Erlin Lee DO (11/07/2020 10:02 AM) [id number]
[2020-11-07 10:11] VITALS: BP 190/79
[2020-11-07] MEDS ORDERED: IV NORMAL SALINE 500ML BAG 500 ML IV ONE (10:15)
[2020-11-07 10:36] LABS: % BANDS 7 % (0-9); % LYMPHS 6 % (24-48); % MONOS 6 % (0-10); % SEGS 81 % (35-66); PLT ESTIMATE ADEQUATE (ADEQUATE)
[2020-11-07] MEDS ORDERED: MORPHINE SULFATE 4 MG/ML VIAL. IV ONE (11:00)
[2020-11-07] MEDS ORDERED: IOHEXOL 350 MG/ML 100 ML VIAL. IV ONE (11:30)
[2020-11-07] MEDS ORDERED: CONTRAST GIVEN. MC PRN (11:45)
--- NOTE | 2020-11-07 12:12 | RAD ---
Study: CT CHEST WITH CONTRAST - PULMONARY ANGIOGRAM History: Right-sided chest pain. Pulmonary embolism. Comparison: None. Technique: Helical CT of the chest performed after the administration of 80 cc Omnipaque 350 intrave nous contrast and timed for angiographic evaluation of the pulmonary arteries per PE protocol. Page l and sagittal 3D MIP reformations were obtained. One or more of the following individualized dose reduction techniques were utilized for this examinat ion: 1. Automated exposure control 2. Adjustment of the mA and/or kV according to patient size 3. Use of iterative reconstruction technique. Findings: Pulmonary Arteries: No main, lobar or segmental pulmonary embolism. Upper limits of normal main pulmo nary artery caliber at 3 cm. Heart/Systemic Vasculature: Extensive calcified and noncalcified atheromatous plaque to include invol vement of the coronary arteries. Status post coronary artery bypass. No CT manifestations of overt ri ght heart strain. The left vertebral artery originates from the arch and is well opacified. The right vertebral artery is not able to be visualized. Mediastinum: Scattered granulomas. Prominent subcarinal lymph node without internal mineralization me asures 1.5 cm short axis. Lungs: Scattered atelectasis. There may be some mild subpleural fibrosis. No suspicious pulmonary nod ule based on size. No pleural effusion or pneumothorax. Neck/Axilla/Body Wall: No significant abnormality. Upper Abdomen: The visualized gallbladder is mildly distended but without apparent wall thickening. Bones: Scattered degenerative changes with involvement of the lower cervical spine more so than the t horacic spine. No rib fracture is identified to account for the patient's symptoms. Miscellaneous: None. IMPRESSION: 1. No pulmonary embolism or other acute abnormality is identified to explain the patient's chest hussain n. 2. Scattered atelectasis and some potential subpleural fibrosis. No confluent infiltrate to suggest pneumonia. 3. Prominent subcarinal lymph node measuring up to 1.5 cm short axis. This is indeterminant but a re active etiology is favored given the absence of lymph node enlargement elsewhere. 4. Extensive atheromatous plaque without aortic dissection or aneurysmal dilatation. The left verteb ral artery originates from the arch and is well opacified. The proximal portion of the right vertebra l artery is not able to be delineated. This could be chronic/due to nondominance though correlate for any symptoms in this vascular distribution. Electronically signed by: JR CLAYTON MD (11/07/2020 12:10 PM) [facility]
[2020-11-07] MEDS ORDERED: CYCL10TA2 PO (12:28)
--- NOTE | 2020-11-07 16:03 | EKG ---
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
[2021-03-09] MEDS ORDERED: AMLO-187 PO (07:10)
[2021-03-09] MEDS ORDERED: METF10007 PO (07:10)
[2021-03-09] MEDS ORDERED: TAMS0.4C97 PO (07:10)
[2021-03-09] MEDS ORDERED: METO50TA4 PO (07:10)
[2021-03-09] MEDS ORDERED: LEVO88TA56 PO (07:10)
[2021-03-09] MEDS ORDERED: PANT20TA2 PO (07:10)
[2021-03-09] MEDS ORDERED: FINA5TAB4 PO (07:10)
[2021-03-09] MEDS ORDERED: ATOR80TA72 PO (07:10)
[2021-03-09] MEDS ORDERED: INSU100V31 SQ (07:22)
[2021-03-09] MEDS ORDERED: INSU100V8 SQ (07:22)
== END 2020-11-07 12:59 | disposition home or self-care (01) ==
LOC: ER 09:08
DX: S29.011A Strain of muscle and tendon of front wall of thorax, initial encounter (principal); R20.2 Paresthesia of skin; E11.9 Type 2 diabetes mellitus without complications; E78.00 Pure hypercholesterolemia, unspecified; I10 Essential (primary) hypertension; F17.200 Nicotine dependence, unspecified, uncomplicated; Z98.890 Other specified postprocedural states; X58.XXXA Exposure to other specified factors, initial encounter; Y93.89 Activity, other specified; Y92.89 Other specified places as the place of occurrence of the external cause; Y99.8 Other external cause status
CPT/HCPCS: 36415; 71045; 71275; 80053; 83735; 84484; 85007; 85025; 85379; 93005; 96361; 96374; 99285; J2270; J7040; Q9967

== ENCOUNTER 2020-11-11 09:44 | Inpatient (IN) | payer BC ==
[~2020-11-11] VITALS: Ht 170.2 cm; Wt 82.5 kg
[~2020-11-11 09:44] MED LIST changes: +CYCL10TA2 PO; +LISI-338 PO; -LISI-517 PO; -LISI10TA16 PO; +LISI10TA2 PO
--- NOTE | 2020-11-11 10:27 | PHYS DOC ---
Past Medical History Past Medical History: CAD, Diabetes-Type II, High Cholesterol, Hypertension Past Surgical History: Coronary Bypass Surgery, Other Additional Past Surgical Histo: Hernia, tooth extractions Smoking Status: Never Smoker Alcohol Use: Occasionally Drug Use: None Adult General Chief Complaint Chief Complaint: ABDOMINAL PAIN HPI HPI Patient is a 75 year old male with history of hypertension, diabetes, coronary disease status post CABG who presents with epigastric pain and chest pain. Patient reports that he was seen in the emergency department on Sunday, November 06. At that time he had some right-sided flank pain. This has resolved. On Sunday he developed epigastric pain. Pain has been constant and nonradiating. Nothing makes it better or worse. He reports that he had a decrease in appetite. He said some nausea without vomiting. Patient denies diarrhea constipation shortness of breath fever syncope headache neck pain. He has had some intermittent chills. Patient is not a smoker. Denies daily drugs or alcohol. Patient is accompanied by family member who helps with history. Review of Systems Review of Systems Constitutional: Denies fever [chills] Eyes: Denies change in visual acuity, redness, or eye pain [] HENT: Denies nasal congestion or sore throat [] Respiratory: Denies cough or shortness of breath [] Cardiovascular: No additional information not addressed in HPI [] GI: Denies Nausea, vomiting, bloody stools or diarrhea [] : Denies dysuria or hematuria [] Musculoskeletal: Denies back pain or joint pain [] Integument: Denies rash or skin lesions [] Neurologic: Denies headache, focal weakness or sensory changes [] Endocrine: Denies polyuria or polydipsia [] All other systems were reviewed and found to be within normal limits, except as documented in this note. Current Medications Current Medications Current Medications Medications (Trade) Dose Ordered Sig/Raul Start Time Stop Time Status Last Admin Dose Admin Azithromycin 250 ml @ 250 mls/hr 1X ONCE 11/11/20 14:00 11/11/20 14:59 DC 11/11/20 15:17 250 MLS/HR Ceftriaxone Sodium (Rocephin) 1 gm 1X ONCE 11/11/20 14:00 11/11/20 14:07 DC 11/11/20 15:12 1 GM Multi-Ingredient Mouthwash/Gargle (Gi Cocktail) 20 ml 1X ONCE 11/11/20 10:30 11/11/20 10:31 DC 11/11/20 10:49 20 ML Potassium Chloride/Water 100 ml @ 50 mls/hr 1X ONCE 11/11/20 12:45 11/11/20 14:44 DC 11/11/20 13:08 50 MLS/HR Allergies Allergies Allergies Coded Allergies Type Severity Reaction Last Updated Verified No Known Drug Allergies 03/14/17 No Physical Exam Physical Exam C GENERAL APPEARANCE: Awake and alert. Cooperative. No acute distress. Non toxic appearing. HEAD: Normocephalic. Atraumatic. EYES: EOM's grossly intact. Sclera anicteric. Conjunctiva clear ENT:. Airway patent. Mucous membranes moist. No trismus. Tolerating secretions. NECK: Supple. Trachea midline. HEART: Regular rate and rhythm. Radial pulses 2+. Good capillary refill. LUNGS: Respirations unlabored. Clear to auscultation bilaterally. No rales, rhonchi, wheezing or retractions. ABDOMEN: Soft. Non-tender. No guarding or rebound. No CVA tenderness. No palpable or pulsatile mass. EXTREMITIES: No acute deformities. No edema, erythema or calf tenderness. SKIN: Warm and dry. No rash. NEUROLOGICAL: Alert and oriented x3. No gross neurological deficits. Moves all 4 extremities spontaneously. PSYCHIATRIC: Normal mood. Current Patient Data Vital Signs Vital Signs Date Time Temp Pulse Resp B/P (MAP) Pulse Ox O2 Delivery O2 Flow Rate FiO2 11/11/20 13:21 72 168/72 (104) 95 Room Air 11/11/20 10:10 98.0 22 98.0 Lab Values Laboratory Tests Test 11/11/20 10:50 11/11/20 10:54 11/11/20 11:40 11/11/20 14:00 Urine Collection Type Unknown Urine Color Alyssa Urine Clarity Clear Urine pH 5.5 (<5.0-8.0) Urine Specific Kellogg 1.025 (1.000-1.030) Urine Protein >=300 mg/dL (NEG-TRACE) Urine Glucose (UA) 100 mg/dL (NEG) Urine Ketones (Stick) Negative mg/dL (NEG) Urine Blood Trace (NEG) Urine Nitrite Negative (NEG) Urine Bilirubin Small (NEG) Urine Urobilinogen Dipstick 1.0 mg/dL (0.2 mg/dL) Urine Leukocyte Esterase Negative (NEG) Urine RBC 0 /HPF (0-2) Urine WBC 1-4 /HPF (0-4) Urine Squamous Epithelial Cells Few /LPF Urine Amorphous Sediment Present /HPF Urine Bacteria 0 /HPF (0-FEW) Urine Hyaline Casts Few /HPF Urine Granular Casts Few /HPF Glucose (Fingerstick) 193 mg/dL (70-99) H White Blood Count 10.8 x10^3/uL (4.0-11.0) Red Blood Count 4.01 x10^6/uL (4.30-5.70) L Hemoglobin 12.4 g/dL (13.0-17.5) L Hematocrit 36.4 % (39.0-53.0) L Mean Corpuscular Volume 91 fL (79-100) Mean Corpuscular Hemoglobin 31 pg (25-35) Mean Corpuscular Hemoglobin Concent 34 g/dL (31-37) Red Cell Distribution Width 14.1 % (11.5-14.5) Platelet Count 228 x10^3/uL (140-400) Neutrophils (%) (Auto) 79 % (31-73) H Lymphocytes (%) (Auto) 10 % (24-48) L Monocytes (%) (Auto) 10 % (0-9) H Eosinophils (%) (Auto) 1 % (0-3) Basophils (%) (Auto) 0 % (0-3) Neutrophils # (Auto) 8.5 x10^3/uL (1.8-7.7) H Lymphocytes # (Auto) 1.1 x10^3/uL (1.0-4.8) Monocytes # (Auto) 1.1 x10^3/uL (0.0-1.1) Eosinophils # (Auto) 0.1 x10^3/uL (0.0-0.7) Basophils # (Auto) 0.0 x10^3/uL (0.0-0.2) Sodium Level 134 mmol/L (136-145) L Potassium Level 2.9 mmol/L (3.5-5.1) *L Chloride Level 97 mmol/L (98-107) L Carbon Dioxide Level 26 mmol/L (21-32) Anion Gap 11 (6-14) Blood Urea Nitrogen 23 mg/dL (8-26) Creatinine 1.8 mg/dL (0.7-1.3) H Estimated GFR (Cockcroft-Gault) 36.8 BUN/Creatinine Ratio 13 (6-20) Glucose Level 191 mg/dL (70-99) H Calcium Level 8.6 mg/dL (8.5-10.1) Magnesium Level 1.9 mg/dL (1.8-2.4) Total Bilirubin 1.2 mg/dL (0.2-1.0) H Aspartate Amino Transferase (AST) 100 U/L (15-37) H Alanine Aminotransferase (ALT) 154 U/L (16-63) H Alkaline Phosphatase 221 U/L (46-116) H Troponin I Quantitative 0.022 ng/mL (0.000-0.055) 0.022 ng/mL (0.000-0.055) BV-Hdc-S-Type Natriuretic Peptide 998 pg/mL (0-449) H Total Protein 7.3 g/dL (6.4-8.2) Albumin 2.5 g/dL (3.4-5.0) L Albumin/Globulin Ratio 0.5 (1.0-1.7) L Lipase 69 U/L (73-393) L Laboratory Tests 11/11/20 11:40 Laboratory Tests 11/11/20 11:40 EKG EKG [] EKG interpretation shows normal sinus rhythm with ventricular rate of 74 bpm. VT interval 194 ms. QRS duration 96 ms. QTc 460 ms. PAC noted. No acute ST segment elevations. Radiology/Procedures Radiology/Procedures []EXAM: Chest, single view. HISTORY: Chest pain. COMPARISON: CT angiogram dated 11/07/2020. FINDINGS: A frontal view of the chest is obtained. There is suspected focal right upper lobe interstitial infiltrate or scarring. There is no consolidation. There is no pleural effusion or pneumothorax. There is a stable prominent cardiac silhouette and evidence of prior CABG. There are stable chronic deformity of the left acromioclavicular joint. IMPRESSION: Suspected focal right upper lobe interstitial infiltrate or scarring. Electronically signed by: Zaira Arevalo MD (11/11/2020 10:57 AM) [id number] MPRESSION: * Debris within the gallbladder with gallbladder wall thickening and pericho lecystic edema. This wall thickening is a nonspecific finding and can be from primary gallbladder inflammation from cholecystitis, reactive to adjacent hepatic inflammation or a systemic process such as hypoproteinemia. If further evaluation of the gallbladder is desired nuclear perihilar scan could BE obtained. The patient also had gallbladder wall thickening on prior exam from 2016. * Liver is echogenic. Nonspecific but can be seen with fatty infiltration. Electronically signed by: Von Damon MD (11/11/2020 1:32 PM) [id number] DICTATED and SIGNED BY: VON DAMON MD DATE: 11/11/20 [id number] Course & Med Decision Making Course & Med Decision Making Pertinent Labs and Imaging studies reviewed. (See chart for details) []MDM: 75-year-old male presents emergency department for epigastric pain for the past 5 days. Here in the emergency department patient appears no acute distress. Vital signs stable. Abdomen is soft and nonperitoneal. Patient declines pain medication at this time. Patient has no leukocytosis. Potassium 2.9. Started replacement in the emergency department. Creatinine of 1.8. It was 1.5 several days ago. AST ALT and total bilirubin elevated compared to previous labs 5 days ago. Troponin negative. Chest x-ray shows suspected focal right upper lobe interstitial infiltrate or scarring. Patient was given azithromycin and Rocephin. US abdomen shows debris within the gallbladder and gallbladder wall thickening with pericholecystic edema. liver is echogenic. It speak with the hospitalist Dr. Walker. Accepts admission. COVID pending. Spoke with general surgeon Dr. Beckford will see patient in consultation. At this time we will admit patient to the hospital. Spoke with patient. Agreeable to admission. Is aware of all labs and imaging. All questions answered and patient is stable at time of admission. Dragon Disclaimer Dragon Disclaimer This electronic medical record was generated, in whole or in part, using a voice recognition dictation system. Departure Departure Impression: Primary Impression: Cholecystitis Additional Impressions: Hypokalemia Abdominal pain Transaminitis Disposition: ADMITTED INPT THIS HOSP Admitting Physician: LACHO (ANDREW) Condition: STABLE Referrals: ROSALIO CHOI MD (PCP) Problem Qualifiers LAURENCE COCHRAN DO Nov 11, 2020 10:27
[2020-11-11] MEDS ORDERED: LIDO:MAALOX 1:1 20 ML SINGLE DOSE. SWSW ONE (10:30)
--- NOTE | 2020-11-11 10:59 | RAD ---
EXAM: Chest, single view. HISTORY: Chest pain. COMPARISON: CT angiogram dated 11/07/2020. FINDINGS: A frontal view of the chest is obtained. There is suspected focal right upper lobe intersti tial infiltrate or scarring. There is no consolidation. There is no pleural effusion or pneumothorax. There is a stable prominent cardiac silhouette and evidence of prior CABG. There are stable chronic deformity of the left acromioclavicular joint. IMPRESSION: Suspected focal right upper lobe interstitial infiltrate or scarring. Electronically signed by: Zaira Arevalo MD (11/11/2020 10:57 AM) [id number]
[2020-11-11 11:41] LABS: BILIRUBIN,URINE SMALL (NEG); CLARITY,URINE CLEAR; COLOR,URINE AMBER; NITRITE,URINE NEGATIVE (NEG); PH,URINE 5.5 (<5.0-8.0); PROTEIN,URINE >=300 mg/dL (NEG-TRACE)
[2020-11-11 11:51] LABS: AMORPHOUS SEDIMENT,UR PRESENT /HPF; BACTERIA,URINE 0 /HPF (0-FEW); GRANULAR CASTS,URINE FEW /HPF; HYALINE CASTS, URINE FEW /HPF; RBC,URINE 0 /HPF (0-2)
[2020-11-11 11:55] LABS: BASO % 0 % (0-3); EOS # 0.1 x10^3/uL (0.0-0.7); EOS % 1 % (0-3); HEMATOCRIT 36.4 % (39.0-53.0); HEMOGLOBIN 12.4 g/dL (13.0-17.5); LYMPH # 1.1 x10^3/uL (1.0-4.8); LYMPH % 10 % (24-48); MEAN CORPUSCULAR HEMOGLOBIN 31 pg (25-35); MEAN CORPUSCULAR HGB CONC 34 g/dL (31-37); MEAN CORPUSCULAR VOLUME 91 fL (79-100); MONO # 1.1 x10^3/uL (0.0-1.1); MONO % 10 % (0-9); NEUT # 8.5 x10^3/uL (1.8-7.7); NEUT % 79 % (31-73); PLATELET COUNT 228 x10^3/uL (140-400); RED BLOOD COUNT 4.01 x10^6/uL (4.30-5.70); RED CELL DISTRIBUTION WIDTH 14.1 % (11.5-14.5); WHITE BLOOD COUNT 10.8 x10^3/uL (4.0-11.0)
[2020-11-11 12:18] LABS: ALBUMIN 2.5 g/dL (3.4-5.0); ALBUMIN/GLOBULIN RATIO 0.5 (1.0-1.7); CALCIUM 8.6 mg/dL (8.5-10.1); CREATININE 1.8 mg/dL (0.7-1.3); GFR 36.8; TOTAL BILIRUBIN 1.2 mg/dL (0.2-1.0); TOTAL PROTEIN 7.3 g/dL (6.4-8.2)
[2020-11-11 12:21] LABS: POTASSIUM 2.9 mmol/L (3.5-5.1)
[2020-11-11] MEDS ORDERED: POTASSIUM CHLORIDE 20MEQ 100 ML IV ONE (12:45)
--- NOTE | 2020-11-11 13:16 | EKG ---
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
--- NOTE | 2020-11-11 13:34 | RAD ---
INDICATION : Reason: epigastric pain elevated LFTs / Spl. Instructions: / History: COMPARISON: February 2016 TECHNIQUE: Multiple ultrasound images obtained through the abdomen in grayscale and color. FINDINGS: Liver: Echogenic Gallbladder: Internal echoes are seen within the gallbladder which could be from sludge. Gallbladder wall measures up to about 6 mm with pericholecystic edema. IVC: Partially distended at level of liver. Common Bile Duct: Not dilated. Pancreas: Not well seen secondary to overlying structures obscuring. Right Kidney: No hydronephrosis. IMPRESSION: * Debris within the gallbladder with gallbladder wall thickening and pericholecystic edema. This wa ll thickening is a nonspecific finding and can be from primary gallbladder inflammation from cholecys titis, reactive to adjacent hepatic inflammation or a systemic process such as hypoproteinemia. If fu rther evaluation of the gallbladder is desired nuclear perihilar scan could BE obtained. The patient also had gallbladder wall thickening on prior exam from 2016. * Liver is echogenic. Nonspecific but can be seen with fatty infiltration. Electronically signed by: David Rodriguez MD (11/11/2020 1:32 PM) [id number]
[2020-11-11] MEDS ORDERED: cefTRIAXone IV Push 1 GM VIAL. IVP ONE (14:00)
[2020-11-11] MEDS ORDERED: AZITHRMYCN 500MG IVPB FOR OMNI 250 ML IV ONE (14:00)
[2020-11-11] MEDS ORDERED: IV NORMAL SALINE 1000ML BAG 1,000 ML IV SCH (14:15)
[2020-11-11] MEDS ORDERED: ONDANSETRON PF 4 MG/2 ML VIAL. IV PRN ×2 (14:15→15:30)
[2020-11-11] MEDS ORDERED: MORPHINE SULFATE 4 MG/ML VIAL. IV PRN (14:15)
--- NOTE | 2020-11-11 14:20 | PDOC1 ---
History and Physical Date of Admission Date of Admission DATE: 11/11/20 TIME: 14:19 Identification/Chief Complaint Chief Complaint Abdominal pain Source Source: Caregiver, Chart review, Patient History of Present Illness History of Present Illness Mr Franco is a 75 year old male with history of hypertension, diabetes, coronary disease status post CABG x4 who presents to the ED with his daughter with epigastric pain and chest pain as well as right flank pain. Pain is epigastric and substernal, sharp, intermittent, 7/10 with occasional radiation to right flank, though it is not currently radiating. Food does not affect his pain. No recent sick contacts. He does have some shortness of breath that is intermittent. No cough. Occasional chills. He was seen in the emergency department on Sunday, November 06 for flank pain. Nothing makes it better or worse. He reports that he had a decrease in appetite. He said some nausea without vomiting. Patient denies diarrhea, no fevers, no syncope headache neck pain. He has had some intermittent chills. Patient is not a smoker. Denies daily drugs or alcohol. Patient is accompanied by family member who helps with history. EKG appears normal sinus rhythm with ventricular rate of 74 bpm. IL interval 194 ms. QRS duration 96 ms. QTc 460 ms. PAC noted. No acute ST segment elevations. Chest radiograph with suspected focal right upper lobe interstitial infiltrate or scarring. RUQ US with debris within the gallbladder with gallbladder wall thickening and pericholecystic edema. Echogenic liver. Labs significant for WBC 10.8 with left shift, Hb 12.4, platelets 228, NA 134, K2.9, BUN 23, CR 1.8, glucose 191, albumin 2.5, alk phos 221, ALT 154, AST 100, bilirubin 1.2, lipase 69, BNP 998, troponin 0 0.022 x 2 Admitted for further care. Past Medical History Cardiovascular: CAD, HTN, Hyperlipidemia Pulmonary: No pertinent hx CENTRAL NERVOUS SYSTEM: Other GI: No pertinent hx Heme/Onc: No pertinent hx Hepatobiliary: No pertinent hx Psych: No pertinent hx Musculoskeletal: Osteoarthritis Rheumatologic: No pertinent hx Infectious disease: No pertinent hx Renal/: No pertinent hx Endocrine: Diabetes Past Surgical History Past Surgical History: CABG, Cataract Removal, Hernia Repair Family History Family History: Coronary Artery Disease Social History Smoke: No ALCOHOL: occassional Drugs: None Current Problem List Problem List Problems Medical Problems: (1) Cholecystitis Status: Acute Current Medications Current Medications Current Medications Multi-Ingredient Mouthwash/Gargle (Gi Cocktail) 20 ml 1X ONCE SWSW Last administered on 11/11/20at 10:49; Start 11/11/20 at 10:30; Stop 11/11/20 at 10:31; Status DC Potassium Chloride/Water 100 ml @ 50 mls/hr 1X ONCE IV Last administered on 11/11/20at 13:08; Start 11/11/20 at 12:45; Stop 11/11/20 at 14:44 Ceftriaxone Sodium (Rocephin) 1 gm 1X ONCE IVP ; Start 11/11/20 at 14:00; Stop 11/11/20 at 14:07; Status DC Azithromycin 250 ml @ 250 mls/hr 1X ONCE IV ; Start 11/11/20 at 14:00; Stop 11/11/20 at 14:59 Ondansetron HCl (Zofran) 4 mg PRN Q8HRS PRN IV NAUSEA/VOMITING; Start 11/11/20 at 14:15; Stop 11/12/20 at 14:14 Morphine Sulfate (Morphine Sulfate) 4 mg PRN Q2HR PRN IV PAIN; Start 11/11/20 at 14:15; Stop 11/12/20 at 14:14 Sodium Chloride 1,000 ml @ 75 mls/hr [id number] IV ; Start 11/11/20 at 14:15; Stop 11/12/20 at 14:14 Active Scripts Active Cyclobenzaprine Hcl 10 Mg Tablet 1 Tab PO TID [place] 5-325 Tablet (Acetaminophen/Hydrocodone Bitart) 1 Each Tablet 1 Tab PO PRN Q6HRS PRN Novolog Flexpen (Insulin Aspart) 100 Unit/1 Ml Insuln.pen 18 Unit SQ BEFORE DINNER [place] 5-325 Tablet (Acetaminophen/Hydrocodone Bitart) 1 Each Tablet 1 Tab PO BID Pantoprazole Sodium (Pantoprazole Sodium) 40 Mg Tablet.dr 40 Mg PO DAILYAC Metoprolol Tartrate 25 Mg Tablet 25 Mg PO BID Lisinopril 5 Mg Tablet 5 Mg PO DAILY Levemir Flextouch (Insulin Detemir) 100 Unit/1 Ml Insuln.pen 50 Units SQ QHS Reported Aspirin Buffered 325 Mg Tab (Aspirin/Calcium Carbonate/Mag) 325 Mg Tablet 325 Mg PO DAILY Metformin Hcl 1,000 Mg Tablet 1,000 Mg PO [id number] Simvastatin 40 Mg Tablet 40 Mg PO DAILY Allergies Allergies: Coded Allergies: No Known Drug Allergies (Unverified , 03/14/17) ROS General: YES: Fatigue, Malaise, Appetite; No: Chills, Night Sweats, Other PSYCHOLOGICAL ROS: No: Anxiety, Behavioral Disorder, Concentration difficultie, Decreased libido, Depression, Disorientation, Hallucinations, Hostility, Irritablity, Memory difficulties, Mood Swings, Obsessive thoughts, Physical abuse, Sexual abuse, Sleep disturbances, Suicidal ideation, Other Eyes: No Blurry vision, No Decreased vision, No Double vision, No Dry eyes, No Excessive tearing, No Eye Pain, No Itchy Eyes, No Loss of vision, No Photophobia, No Scotomata, No Uses contacts, No Uses glasses, No Other HEENT: No: Heacaches, Visual Changes, Hearing change, Nasal congestion, Nasal discharge, Oral lesions, Sinus pain, Sore Throat, Epistaxis, Sneezing, Snoring, Tinnitus, Vertigo, Vocal changes, Other ALLERGY AND IMMUNOLOGY: No: Hives, Insect Bite Sensitivity, Itchy/Watery Eyes, Nasal Congestion, Post Nasal Drip, Seasonal Allergies, Other Hematological and Lymphatic: No: Bleeding Problems, Blood Clots, Blood Transfusions, Brusing, Night Sweats, Pallor, Swollen Lymph Nodes, Other ENDOCRINE: No: Breast Changes, Galactorrhea, Hair Pattern Changes, Hot Flashes, Malaise/lethargy, Mood Swings, Palpitations, Polydipsia/polyuria, Skin Changes, Temperature Intolerance, Unexpected Weight Changes, Other Breast: No New/Changing Breast Lumps, No Nipple changes, No Nipple discharge, N o Other Respiratory: YES: Shortness of breath; No: Cough, Hemoptysis, Orthopnea, Pleuritic Pain, SOB with excertion, Sputum Changes, Stridor, Tachypnea, Wheezing, Other Cardiovascular: yes Chest Pain; No Palpitations, No Orthopnea, No Paroxysmal Noc. Dyspnea, No Edema, No Lt Headedness, No Other Gastrointestinal: Yes Nausea, Yes Abdominal Pain; No Vomiting, No Diarrhea, No Constipation, No Melena, No Hematochezia, No Other Genitourinary: No Dysuria, No Frequency, No Incontinence, No Hematuria, No Retention, No Discharge, No Urgency, No Pain, No Flank Pain, No Other, No , No , No , No , No , No , No Musculoskeletal: No Gait Disturbance, No Joint Pain, No Joint Stiffness, No Joint Swelling, No Muscle Pain, No Muscular Weakness, No Pain In:, No Swelling In:, No Other Neurological: No Behavorial Changes, No Bowel/Bladder ControlChng, No Confusion, No Dizziness, No Gait Disturbance, No Headaches, No Impaired Coord/balance, No Memory Loss, No Numbness/Tingling, No Seizures, No Speech Problems, No Tremors, No Visual Changes, No Weakness, No Other Skin: No Dry Skin, No Eczema, No Hair Changes, No Lumps, No Mole Changes, No Mottling, No Nail Changes, No Pruritus, No Rash, No Skin Lesion Changes, No Other, No Acne Physical Exam General: Alert, Oriented X3, Cooperative, mild distress HEENT: Atraumatic, PERRLA, EOMI, Mucous membr. moist/pink Lungs: Clear to auscultation, Normal air movement Heart: S1S2, RRR, no thrills, no rubs, no gallops, no murmurs Abdomen: Normal bowel sounds, Soft, No hepatosplenomegaly, No masses, Other (epigastric and RUQ tenderness) Rectal Exam: not examined Extremities: No clubbing, No cyanosis, No edema, Normal pulses, No tenderness/swelling Skin: No rashes, No breakdown, No significant lesion Neuro: Normal gait, Normal speech, Strength at 5/5 X4 ext, Normal tone, Sensation intact, Cranial nerves 3-12 NL, Reflexes 2+ Psych/Mental Status: Mental status NL, Mood NL Vitals Vitals Vital Signs Date Time Temp Pulse Resp B/P (MAP) Pulse Ox O2 Delivery O2 Flow Rate FiO2 11/11/20 10:10 98.0 80 22 146/67 (93) 98 Room Air 98.0 Labs Labs Laboratory Tests Test 11/11/20 10:50 11/11/20 10:54 11/11/20 11:40 Urine Collection Type Unknown Urine Color Alyssa Urine Clarity Clear Urine pH 5.5 (<5.0-8.0) Urine Specific [place] 1.025 (1.000-1.030) Urine Protein >=300 mg/dL (NEG-TRACE) Urine Glucose (UA) 100 mg/dL (NEG) Urine Ketones (Stick) Negative mg/dL (NEG) Urine Blood Trace (NEG) Urine Nitrite Negative (NEG) Urine Bilirubin Small (NEG) Urine Urobilinogen Dipstick 1.0 mg/dL (0.2 mg/dL) Urine Leukocyte Esterase Negative (NEG) Urine RBC 0 /HPF (0-2) Urine WBC 1-4 /HPF (0-4) Urine Squamous Epithelial Cells Few /LPF Urine Amorphous Sediment Present /HPF Urine Bacteria 0 /HPF (0-FEW) Urine Hyaline Casts Few /HPF Urine Granular Casts Few /HPF Glucose (Fingerstick) 193 mg/dL (70-99) White Blood Count 10.8 x10^3/uL (4.0-11.0) Red Blood Count 4.01 x10^6/uL (4.30-5.70) Hemoglobin 12.4 g/dL (13.0-17.5) Hematocrit 36.4 % (39.0-53.0) Mean Corpuscular Volume 91 fL (79-100) Mean Corpuscular Hemoglobin 31 pg (25-35) Mean Corpuscular Hemoglobin Concent 34 g/dL (31-37) Red Cell Distribution Width 14.1 % (11.5-14.5) Platelet Count 228 x10^3/uL (140-400) Neutrophils (%) (Auto) 79 % (31-73) Lymphocytes (%) (Auto) 10 % (24-48) Monocytes (%) (Auto) 10 % (0-9) Eosinophils (%) (Auto) 1 % (0-3) Basophils (%) (Auto) 0 % (0-3) Neutrophils # (Auto) 8.5 x10^3/uL (1.8-7.7) Lymphocytes # (Auto) 1.1 x10^3/uL (1.0-4.8) Monocytes # (Auto) 1.1 x10^3/uL (0.0-1.1) Eosinophils # (Auto) 0.1 x10^3/uL (0.0-0.7) Basophils # (Auto) 0.0 x10^3/uL (0.0-0.2) Sodium Level 134 mmol/L (136-145) Potassium Level 2.9 mmol/L (3.5-5.1) Chloride Level 97 mmol/L (98-107) Carbon Dioxide Level 26 mmol/L (21-32) Anion Gap 11 (6-14) Blood Urea Nitrogen 23 mg/dL (8-26) Creatinine 1.8 mg/dL (0.7-1.3) Estimated GFR (Cockcroft-Gault) 36.8 BUN/Creatinine Ratio 13 (6-20) Glucose Level 191 mg/dL (70-99) Calcium Level 8.6 mg/dL (8.5-10.1) Magnesium Level 1.9 mg/dL (1.8-2.4) Total Bilirubin 1.2 mg/dL (0.2-1.0) Aspartate Amino Transf (AST/SGOT) 100 U/L (15-37) Alanine Aminotransferase (ALT/SGPT) 154 U/L (16-63) Alkaline Phosphatase 221 U/L (46-116) Troponin I Quantitative 0.022 ng/mL (0.000-0.055) NI-Ynr-C-Type Natriuretic Peptide 998 pg/mL (0-449) Total Protein 7.3 g/dL (6.4-8.2) Albumin 2.5 g/dL (3.4-5.0) Albumin/Globulin Ratio 0.5 (1.0-1.7) Lipase 69 U/L (73-393) Laboratory Tests Test 11/11/20 10:50 11/11/20 10:54 11/11/20 11:40 Urine Collection Type Unknown Urine Color Alyssa Urine Clarity Clear Urine pH 5.5 (<5.0-8.0) Urine Specific [place] 1.025 (1.000-1.030) Urine Protein >=300 mg/dL (NEG-TRACE) Urine Glucose (UA) 100 mg/dL (NEG) Urine Ketones (Stick) Negative mg/dL (NEG) Urine Blood Trace (NEG) Urine Nitrite Negative (NEG) Urine Bilirubin Small (NEG) Urine Urobilinogen Dipstick 1.0 mg/dL (0.2 mg/dL) Urine Leukocyte Esterase Negative (NEG) Urine RBC 0 /HPF (0-2) Urine WBC 1-4 /HPF (0-4) Urine Squamous Epithelial Cells Few /LPF Urine Amorphous Sediment Present /HPF Urine Bacteria 0 /HPF (0-FEW) Urine Hyaline Casts Few /HPF Urine Granular Casts Few /HPF Glucose (Fingerstick) 193 mg/dL (70-99) White Blood Count 10.8 x10^3/uL (4.0-11.0) Red Blood Count 4.01 x10^6/uL (4.30-5.70) Hemoglobin 12.4 g/dL (13.0-17.5) Hematocrit 36.4 % (39.0-53.0) Mean Corpuscular Volume 91 fL (79-100) Mean Corpuscular Hemoglobin 31 pg (25-35) Mean Corpuscular Hemoglobin Concent 34 g/dL (31-37) Red Cell Distribution Width 14.1 % (11.5-14.5) Platelet Count 228 x10^3/uL (140-400) Neutrophils (%) (Auto) 79 % (31-73) Lymphocytes (%) (Auto) 10 % (24-48) Monocytes (%) (Auto) 10 % (0-9) Eosinophils (%) (Auto) 1 % (0-3) Basophils (%) (Auto) 0 % (0-3) Neutrophils # (Auto) 8.5 x10^3/uL (1.8-7.7) Lymphocytes # (Auto) 1.1 x10^3/uL (1.0-4.8) Monocytes # (Auto) 1.1 x10^3/uL (0.0-1.1) Eosinophils # (Auto) 0.1 x10^3/uL (0.0-0.7) Basophils # (Auto) 0.0 x10^3/uL (0.0-0.2) Sodium Level 134 mmol/L (136-145) Potassium Level 2.9 mmol/L (3.5-5.1) Chloride Level 97 mmol/L (98-107) Carbon Dioxide Level 26 mmol/L (21-32) Anion Gap 11 (6-14) Blood Urea Nitrogen 23 mg/dL (8-26) Creatinine 1.8 mg/dL (0.7-1.3) Estimated GFR (Cockcroft-Gault) 36.8 BUN/Creatinine Ratio 13 (6-20) Glucose Level 191 mg/dL (70-99) Calcium Level 8.6 mg/dL (8.5-10.1) Magnesium Level 1.9 mg/dL (1.8-2.4) Total Bilirubin 1.2 mg/dL (0.2-1.0) Aspartate Amino Transf (AST/SGOT) 100 U/L (15-37) Alanine Aminotransferase (ALT/SGPT) 154 U/L (16-63) Alkaline Phosphatase 221 U/L (46-116) Troponin I Quantitative 0.022 ng/mL (0.000-0.055) ZR-Vbr-D-Type Natriuretic Peptide 998 pg/mL (0-449) Total Protein 7.3 g/dL (6.4-8.2) Albumin 2.5 g/dL (3.4-5.0) Albumin/Globulin Ratio 0.5 (1.0-1.7) Lipase 69 U/L (73-393) Images Images Chest radiograph: A frontal view of the chest is obtained. There is suspected focal right upper lobe interstitial infiltrate or scarring. There is no consolidation. There is no pleural effusion or pneumothorax. There is a stable prominent cardiac silhouette and evidence of prior CABG. There are stable chronic deformity of the left acromioclavicular joint. IMPRESSION: Suspected focal right upper lobe interstitial infiltrate or scarring. RUQ US: Liver: Echogenic Gallbladder: Internal echoes are seen within the gallbladder which could be from sludge. Gallbladder wall measures up to about 6 mm with pericholecystic edema. IVC: Partially distended at level of liver. Common Bile Duct: Not dilated. Pancreas: Not well seen secondary to overlying structures obscuring. Right Kidney: No hydronephrosis. IMPRESSION: * Debris within the gallbladder with gallbladder wall thickening and pericholecystic edema. This wall thickening is a nonspecific finding and can be from primary gallbladder inflammation from cholecystitis, reactive to adjacent hepatic inflammation or a systemic process such as hypoproteinemia. If further evaluation of the gallbladder is desired nuclear perihilar scan could BE obtained. The patient also had gallbladder wall thickening on prior exam from 2016. * Liver is echogenic. Nonspecific but can be seen with fatty infiltration. VTE Prophylaxis Ordered VTE Prophylaxis Devices: Yes VTE Pharmacological Prophylaxi: No Assessment/Plan Assessment/Plan A/P: Epigastric abdominal pain - seems to be acute Cholecystitis, but concerning for possible prior findings. May also be Hypokalemia - will replace, check mag RODRIGUE - vasomotor nephropathy, will hydrate gently, monitor renal function Chest pain - likely GERD vs gastritis vs PUD, however with his CAD history will trend troponins, ask cardiology to see Transaminitis - likely from gallbladder disease vs possible COVID 19, though he denies exposure Elevated troponin - likely demand ischemia, will trend. cardiology consulted DM2 - with hyperglycemia - will keep Npo, sliding scale Anemia - likely of chronic disease CAD s/p CABG x4 2016 - has outpatient f/u, taking meds Abnormal CXR - will treat as pneumonia, likely gram negative given his age and risk factors. Will f/u COVID 19 results FEN - NPO PPX - SCDs FULL CODE Dispo - inpatient for above COVID-19 CRITERIA: The patient was evaluated during the global COVID-19 pandemic, and that diagnosis was suspected/considered upon their initial presentation. Their evaluation, treatment and testing was consistent with curr ent guidelines for patients who present with complaints or symptoms that may be related to COVID-19. Justifications for Admission Other Justification MICK BAJWA MD Nov 11, 2020 14:20
[2020-11-11] MEDS ORDERED: PIP/TAZO PER PHARMACY MC PRN (15:30)
[2020-11-11] MEDS ORDERED: DEXTROSE 50% 25 GM / 50ML DISP.SYRIN. IV PRN (15:30)
[2020-11-11 15:50] VITALS: BP 148/67
[2020-11-11] MEDS ORDERED: PIPERACILLIN/TAZOBACTAM 3.375 GM in IV NORMAL SALINE 50ML 50 ML IV ONE (16:00)
--- NOTE | 2020-11-11 16:32 | PDOC2 ---
CARDIAC CONSULT DATE OF CONSULT Date of Consult DATE: 11/11/20 TIME: 15:55 REASON FOR CONSULT Reason for Consult: Chest pain, r/o ACS REFERRING PHYSICIAN Referring Physician: Adina SOURCE Source: Chart review, Patient HISTORY OF PRESENT ILLNESS HISTORY OF PRESENT ILLNESS This is a 75 yo male admitted for complains of abdominal pain. This is mainly to right side and epigastric region. midchest pain occurred after the abdominal pain. This started about 5 days ago. Also some loss of appetite with some nausea but no vomiting. No diarrhea, palpitations, SOA, No fever or chills, no loss of taste or smell. Denies routine NSAIDs. Denies any falls or any injury. Verbalized med compliance. Denies drinking ETOH and no further smoking tobacco since 2016 after his CABG. Still has some epigastric tenderness with palpation. Denies any recent Covid-19 exposure. Denies any exertional CP nor SEGURA. PAST MEDICAL HISTORY Past Medical History Cardiovascular: HTN, Hyperlipidemia, CAD, carotid artery disease Pulmonary: No pertinent hx CENTRAL NERVOUS SYSTEM: Other (No pertinent history) GI: GERD Heme/Onc: Anemia Hepatobiliary: No pertinent hx Psych: No pertinent hx Musculoskeletal: Osteoarthritis Rheumatologic: No pertinent hx Infectious disease: No pertinent hx ENT: No pertinent hx Renal/: BPH, CKD Endocrine: Diabetes (2) Dermatology: No pertinent hx PAST SURGICAL HISTORY Past Surgical History CABG x4 COKER to LAD, SVG to OM1 and OM2, SVG to distal RCA 11/19/2015, Cataract Removal FAMILY HISTORY Family History: Coronary Artery Disease (brother) SOCIAL HISTORY Smoke: Quit ALCOHOL: none Drugs: None Lives: with Family CURRENT MEDICATIONS CURRENT MEDICATIONS Current Medications Medications (Trade) Dose Ordered Sig/Raul Route PRN Reason Start Time Stop Time Status Last Admin Dose Admin Multi-Ingredient Mouthwash/Gargle (Gi Cocktail) 20 ml 1X ONCE SWSW 11/11/20 10:30 11/11/20 10:31 DC 11/11/20 10:49 Potassium Chloride/Water 100 ml @ 50 mls/hr 1X ONCE IV 11/11/20 12:45 11/11/20 14:44 DC 11/11/20 13:08 Ceftriaxone Sodium (Rocephin) 1 gm 1X ONCE IVP 11/11/20 14:00 11/11/20 14:07 DC 11/11/20 15:12 Azithromycin 250 ml @ 250 mls/hr 1X ONCE IV 11/11/20 14:00 11/11/20 14:59 DC 11/11/20 15:17 Sodium Chloride 1,000 ml @ 75 mls/hr [id number] IV 11/11/20 14:15 11/12/20 14:14 11/11/20 14:15 ALLERGIES ALLERGIES: Coded Allergies: No Known Drug Allergies (Unverified , 03/14/17) ROS Review of System 14 point ROS evaluated with pertinent positives noted per HPI PHYSICAL EXAM General: Alert, Oriented X3, Cooperative, No acute distress HEENT: Atraumatic, Mucous membr. moist/pink Lungs: Clear to auscultation, Normal air movement Heart: Regular rate (SR no ectopies), Normal S1, Normal S2, No murmurs Abdomen: Soft, Other (epigastric tenderness) Skin: No breakdown, No significant lesion Neuro: Normal speech, Sensation intact Psych/Mental Status: Mood NL MUSCULOSKELETAL: Osteoarthritic changes both hands VITALS/I&O VITALS/I&O: Vital Signs Date Time Temp Pulse Resp B/P (MAP) Pulse Ox O2 Delivery O2 Flow Rate FiO2 11/11/20 14: 68 160/70 (100) 96 Room Air 11/11/20 10:10 98.0 22 98.0 LABS Lab: Laboratory Tests Test 11/11/20 10:50 11/11/20 10:54 11/11/20 11:40 11/11/20 14:00 Urine Collection Type Unknown Urine Color Alyssa Urine Clarity Clear Urine pH 5.5 (<5.0-8.0) Urine Specific [place] 1.025 (1.000-1.030) Urine Protein >=300 mg/dL (NEG-TRACE) Urine Glucose (UA) 100 mg/dL (NEG) Urine Ketones (Stick) Negative mg/dL (NEG) Urine Blood Trace (NEG) Urine Nitrite Negative (NEG) Urine Bilirubin Small (NEG) Urine Urobilinogen Dipstick 1.0 mg/dL (0.2 mg/dL) Urine Leukocyte Esterase Negative (NEG) Urine RBC 0 /HPF (0-2) Urine WBC 1-4 /HPF (0-4) Urine Squamous Epithelial Cells Few /LPF Urine Amorphous Sediment Present /HPF Urine Bacteria 0 /HPF (0-FEW) Urine Hyaline Casts Few /HPF Urine Granular Casts Few /HPF Glucose (Fingerstick) 193 mg/dL (70-99) H White Blood Count 10.8 x10^3/uL (4.0-11.0) Red Blood Count 4.01 x10^6/uL (4.30-5.70) L Hemoglobin 12.4 g/dL (13.0-17.5) L Hematocrit 36.4 % (39.0-53.0) L Mean Corpuscular Volume 91 fL (79-100) Mean Corpuscular Hemoglobin 31 pg (25-35) Mean Corpuscular Hemoglobin Concent 34 g/dL (31-37) Red Cell Distribution Width 14.1 % (11.5-14.5) Platelet Count 228 x10^3/uL (140-400) Neutrophils (%) (Auto) 79 % (31-73) H Lymphocytes (%) (Auto) 10 % (24-48) L Monocytes (%) (Auto) 10 % (0-9) H Eosinophils (%) (Auto) 1 % (0-3) Basophils (%) (Auto) 0 % (0-3) Neutrophils # (Auto) 8.5 x10^3/uL (1.8-7.7) H Lymphocytes # (Auto) 1.1 x10^3/uL (1.0-4.8) Monocytes # (Auto) 1.1 x10^3/uL (0.0-1.1) Eosinophils # (Auto) 0.1 x10^3/uL (0.0-0.7) Basophils # (Auto) 0.0 x10^3/uL (0.0-0.2) Sodium Level 134 mmol/L (136-145) L Potassium Level 2.9 mmol/L (3.5-5.1) *L Chloride Level 97 mmol/L (98-107) L Carbon Dioxide Level 26 mmol/L (21-32) Anion Gap 11 (6-14) Blood Urea Nitrogen 23 mg/dL (8-26) Creatinine 1.8 mg/dL (0.7-1.3) H Estimated GFR (Cockcroft-Gault) 36.8 BUN/Creatinine Ratio 13 (6-20) Glucose Level 191 mg/dL (70-99) H Calcium Level 8.6 mg/dL (8.5-10.1) Magnesium Level 1.9 mg/dL (1.8-2.4) Total Bilirubin 1.2 mg/dL (0.2-1.0) H Aspartate Amino Transferase (AST) 100 U/L (15-37) H Alanine Aminotransferase (ALT) 154 U/L (16-63) H Alkaline Phosphatase 221 U/L (46-116) H Troponin I Quantitative 0.022 ng/mL (0.000-0.055) 0.022 ng/mL (0.000-0.055) IT-Qhw-V-Type Natriuretic Peptide 998 pg/mL (0-449) H Total Protein 7.3 g/dL (6.4-8.2) Albumin 2.5 g/dL (3.4-5.0) L Albumin/Globulin Ratio 0.5 (1.0-1.7) L Lipase 69 U/L (73-393) L Laboratory Tests 11/11/20 11:40 Laboratory Tests 11/11/20 11:40 ECHOCARDIOGRAM ECHOCARDIOGRAM <Conclusion> The left ventricular systolic function is normal. The Ejection Fraction is 55-60%. There is normal LV segmental wall motion. Transmitral Doppler flow pattern is Grade I-abnormal relaxation pattern. Trace mitral regurgitation. Trace tricuspid regurgitation with an estimated PAP of 33 mmHg. There is no evidence of significant pericardial effusion. DATE: 09/09/20 STRESS TEST STRESS TEST Conclusion 1. Regadenoson cardioisotope stress test showed moderate sized inferolateral wall infarct without any ischemia. 2. Abnormal septal motion most probably secondary to postoperative state. The ejection fraction is calculated at 48%. 3. Low risk for cardiac events. DATE: 09/09/20 [id number] 0 HEART CATH HEART CATH Hemodynamics. Left ventricle pressure 128/12, aortic root pressure 126/64. Coronaries. Left main. The left main had a proximal 40-50% lesion which caused dampening with 6 [place] diagnostic catheters. Left anterior descending. The LAD had a proximal 60% and a mid subtotal lesion. There was extensive collateralization throughout the left system. Left circumflex. The left circumflex had a mid 70% lesion. Right coronary artery. Right coronary had a mid 50% lesion in the distal subtotal to total occlusion. There was extensive collateralization from the left system. Left ventriculogram. The left ventricle showed inferior to the inferior apical hypokinesis. Ejection fraction was estimated at 40%. There was mild to moderate mitral regurgitation. <Conclusion> 3 vessel coronary artery disease with a left main lesion in a diabetic patient. Decreased LV systolic function with an ejection fraction of 40%. Mild to moderate mitral regurgitation. DATE: 11/17/15 0957 ASSESSMENT/PLAN ASSESSMENT/PLAN 1. Atypical chest pain: more from abd pain. likely from acute cholecystitis 2. CAD; CABGx4 in 2013, clinically stable. Trops nml EKG SR without acute changes 3. RODRIGUE on CKD2: baseline Cr at 1.2-1.5. Cr at 1.8 4. HTN: controlled 5. HLP with hypertriglyceridemia 6. DM2 7. Transaminitis 8. Hypokalemia 9. PUI Recommendations 1. IV lopressor for now while NPO 2. Obtain post void residual and note need for kate. 3. IVF while NPO. No NSAIDs Hold home ACEi. 4. Await general surgery input. Antibiotics ongoing. Replace K 5. Recent stress test and TTE as noted above. He is low to moderate risk for perioperative CV events for noncardiac surgery. 6. Lipids in AM and BMP JANET LUCERO [employer] Nov 11, 2020 16:32
[2020-11-11] MEDS: METOPROLOL IV PUSH 5 MG/5 ML VIAL. IVP SCH ×2 (18:33→23:49)
[2020-11-11] MEDS: INSULIN LISPRO 300 UNITS/3 ML VIAL. SQ SCH (18:57)
[2020-11-11 19:00] VITALS: BP 152/63
[2020-11-11 20:14] LABS: PROTHROMBIN TIME PATIENT 14.4 SEC (11.7-14.0)
[2020-11-11 20:15] LABS: CALCIUM 7.8 mg/dL (8.5-10.1); CREATININE 1.6 mg/dL (0.7-1.3); GFR 42.1; POTASSIUM 3.2 mmol/L (3.5-5.1)
[2020-11-11 23:12] VITALS: BP 151/66
[2020-11-11] MEDS: PIPERACILLIN/TAZOBACTAM 2.25 GM in IV NORMAL SALINE 50ML 50 ML IV SCH (23:48)
[2020-11-12 03:00] VITALS: BP 152/63
[2020-11-12 04:48] LABS: BASO % 0 % (0-3); EOS # 0.1 x10^3/uL (0.0-0.7); EOS % 1 % (0-3); HEMATOCRIT 33.2 % (39.0-53.0); HEMOGLOBIN 11.6 g/dL (13.0-17.5); LYMPH # 1.1 x10^3/uL (1.0-4.8); LYMPH % 14 % (24-48); MEAN CORPUSCULAR HEMOGLOBIN 32 pg (25-35); MEAN CORPUSCULAR HGB CONC 35 g/dL (31-37); MEAN CORPUSCULAR VOLUME 91 fL (79-100); MONO # 0.9 x10^3/uL (0.0-1.1); MONO % 12 % (0-9); NEUT # 5.5 x10^3/uL (1.8-7.7); NEUT % 72 % (31-73); PLATELET COUNT 223 x10^3/uL (140-400); RED BLOOD COUNT 3.66 x10^6/uL (4.30-5.70); WHITE BLOOD COUNT 7.7 x10^3/uL (4.0-11.0)
[2020-11-12 05:14] LABS: ALBUMIN 2.2 g/dL (3.4-5.0); ALBUMIN/GLOBULIN RATIO 0.6 (1.0-1.7); CALCIUM 7.4 mg/dL (8.5-10.1); CREATININE 1.5 mg/dL (0.7-1.3); GFR 45.4; POTASSIUM 3.3 mmol/L (3.5-5.1); TOTAL BILIRUBIN 0.8 mg/dL (0.2-1.0); TOTAL PROTEIN 5.8 g/dL (6.4-8.2)
[2020-11-12 05:24] LABS: CHOLESTEROL/HDL RATIO 11.3
[2020-11-12] MEDS: INSULIN LISPRO 300 UNITS/3 ML VIAL. SQ SCH ×5 (06:00→21:54)
[2020-11-12] MEDS: PIPERACILLIN/TAZOBACTAM 2.25 GM in IV NORMAL SALINE 50ML 50 ML IV SCH ×3 (06:18→17:01)
[2020-11-12] MEDS: METOPROLOL IV PUSH 5 MG/5 ML VIAL. IVP SCH ×2 (06:19→11:47)
[2020-11-12] MEDS ORDERED: fentaNYL PF VIAL 100 MCG/2 ML VIAL IVP PRN ×2 (06:45)
[2020-11-12] MEDS ORDERED: HYDROmorphone 2 MG/ML VIAL IVP PRN (06:45)
[2020-11-12] MEDS ORDERED: IV RINGERS,LACTATED 1000ML 1,000 ML IV SCH (06:45)
[2020-11-12] MEDS ORDERED: PROCHLORPERAZINE 10 MG/2 ML VIAL. IVP PRN (06:45)
[2020-11-12] MEDS ORDERED: MORPHINE SULFATE 2 MG/ML VIAL. IVP PRN (06:45)
[2020-11-12] MEDS ORDERED: ONDANSETRON PF 4 MG/2 ML VIAL. ONE (06:50)
[2020-11-12] MEDS ORDERED: PROPOFOL 10 MG/ML (20ML) VIAL. IV ONE (06:50)
[2020-11-12] MEDS ORDERED: DEXAMETHASONE SOD PHOS 4 MG/ML VIAL ONE (06:50)
[2020-11-12] MEDS ORDERED: LIDOCAINE 2% PF 5 ML VIAL. ONE (06:50)
[2020-11-12] MEDS ORDERED: ROCURONIUM 50 MG/5 ML VIAL. ONE (06:51)
[2020-11-12] MEDS ORDERED: SURGICEL HEMOSTAT 4X8 EACH. ONE (06:58)
[2020-11-12] MEDS ORDERED: IOHEXOL 300 MG/ML 50 ML VIAL. ONE (06:58)
[2020-11-12] MEDS ORDERED: BUPIVACAINE-EPI 0.25% 30 ML VIAL KIT. ONE (06:58)
--- NOTE | 2020-11-12 07:00 | PDOC2 ---
CONSULT Date of Consult Date of Consult DATE: 11/12/20 TIME: 06:57 Reason for Consult Reason for Consult: Right upper quadrant abdominal pain Referring Physician Referring Physician: Adina Identification/Chief Complaint Chief Complaint Abdominal pain right upper quadrant epigastrium Source Source: Chart review, Patient History of Present Illness Reason for Visit: 75-year-old male come to the emergency department with complaints of right upper quadrant abdominal pain radiating to the epigastrium nausea no vomiting. Does have cardiac history and had a cardiology consult does not appear to be cardiac in nature. Ultrasound showed distended gallbladder with thickened gallbladder wall pericholecystic inflammation and debris within the gallbladder Past Medical History Cardiovascular: CAD, HTN, Hyperlipidemia Pulmonary: No pertinent hx CENTRAL NERVOUS SYSTEM: Other GI: No pertinent hx Heme/Onc: No pertinent hx Hepatobiliary: No pertinent hx Psych: No pertinent hx Musculoskeletal: Osteoarthritis Rheumatologic: No pertinent hx Infectious disease: No pertinent hx Renal/: No pertinent hx Endocrine: Diabetes Past Surgical History Past Surgical History: CABG, Cataract Removal, Hernia Repair Family History Family History: Coronary Artery Disease (brother) Social History Quit ALCOHOL: none Drugs: None Lives: with Family Current Problem List Problem List Problems Medical Problems: (1) Abdominal pain Status: Acute (2) Cholecystitis Status: Acute (3) Hypokalemia Status: Acute (4) Transaminitis Status: Acute Current Medications Current Medications Current Medications Multi-Ingredient Mouthwash/Gargle (Gi Cocktail) 20 ml 1X ONCE SWSW Last administered on 11/11/20at 10:49; Start 11/11/20 at 10:30; Stop 11/11/20 at 10:31; Status DC Potassium Chloride/Water 100 ml @ 50 mls/hr 1X ONCE IV Last administered on 11/11/20at 13:08; Start 11/11/20 at 12:45; Stop 11/11/20 at 14:44; Status DC Ceftriaxone Sodium (Rocephin) 1 gm 1X ONCE IVP Last administered on 11/11/20at 15:12; Start 11/11/20 at 14:00; Stop 11/11/20 at 14:07; Status DC Azithromycin 250 ml @ 250 mls/hr 1X ONCE IV Last administered on 11/11/20at 15:17; Start 11/11/20 at 14:00; Stop 11/11/20 at 14:59; Status DC Ondansetron HCl (Zofran) 4 mg PRN Q8HRS PRN IV NAUSEA/VOMITING; Start 11/11/20 at 14:15; Stop 11/11/20 at 15:33; Status DC Morphine Sulfate (Morphine Sulfate) 4 mg PRN Q2HR PRN IV MODERATE TO SEVERE PAIN; Start 11/11/20 at 14:15; Stop 11/12/20 at 14:14 Sodium Chloride 1,000 ml @ 75 mls/hr [id number] IV Last administered on 11/11/20at 14:15; Start 11/11/20 at 14:15; Stop 11/11/20 at 16:59; Status DC Ondansetron HCl (Zofran) 4 mg PRN Q4HRS PRN IV NAUSEA/VOMITING; Start 11/11/20 at 15:30 Insulin Human Lispro (HumaLOG) 0-9 UNITS Q6HRS SQ Last administered on 11/11/20at 18:57; Start 11/11/20 at 18:00 Dextrose (Dextrose 50%-Water Syringe) 12.5 gm PRN Q15MIN PRN IV SEE COMMENTS; Start 11/11/20 at 15:30 Piperacillin Sod/ Tazobactam Sod 3.375 gm/Sodium Chloride 50 ml @ 100 mls/hr 1X ONCE IV Last administered on 11/11/20at 17:30; Start 11/11/20 at 16:00; Stop 11/11/20 at 16:29; Status DC Piperacillin Sod/ Tazobactam Sod (Zosyn Per Pharmacy) 1 each PRN DAILY PRN MC SEE COMMENTS; Start 11/11/20 at 15:30 Piperacillin Sod/ Tazobactam Sod 2.25 gm/Sodium Chloride 50 ml @ 100 mls/hr Q6 HRS IV Last administered on 11/12/20at 06:18; Start 11/11/20 at 23:00 Metoprolol Tartrate (Lopressor Vial) 5 mg Q6HRS IVP Last administered on 11/12/20at 06:19; Start 11/11/20 at 18:00 Potassium Chloride/Sodium Chloride 1,000 ml @ 75 mls/hr [id number] IV Last administered on 11/11/20at 18:31; Start 11/11/20 at 17:00; Stop 11/12/20 at 06:19; Status DC Sodium Chloride 1,000 ml @ 75 mls/hr [id number] IV ; Start 11/12/20 at 06:20 Fentanyl Citrate (Fentanyl 2ml Vial) 25 mcg PRN Q5MIN PRN IVP MILD PAIN 1-3; Start 11/12/20 at 06:45; Stop 11/13/20 at 06:44 Fentanyl Citrate (Fentanyl 2ml Vial) 50 mcg PRN Q5MIN PRN IVP MODERATE PAIN 4- 6; Start 11/12/20 at 06:45; Stop 11/13/20 at 06:44 Morphine Sulfate (Morphine Sulfate) 1 mg PRN Q10MIN PRN IVP SEVERE PAIN 7-10; Start 11/12/20 at 06:45; Stop 11/13/20 at 06:44 Ringer's Solution 1,000 ml @ 30 mls/hr Q24H IV ; Start 11/12/20 at 06:45; Stop 11/12/20 at 18:44 Hydromorphone HCl (Dilaudid) 0.5 mg PRN Q10MIN PRN IVP SEVERE PAIN 7-10, 2nd CHOICE; Start 11/12/20 at 06:45; Stop 11/13/20 at 06:44 Prochlorperazine Edisylate (Compazine) 5 mg PACU PRN PRN IVP NAUSEA, MRX1; Start 11/12/20 at 06:45; Stop 11/13/20 at 06:44 Dexamethasone Sodium Phosphate (Decadron) 4 mg STK-MED ONCE .ROUTE ; Start 11/12/20 at 06:50; Stop 11/12/20 at 06:50; Status DC Propofol (Diprivan) 200 mg STK-MED ONCE IV ; Start 11/12/20 at 06:50; Stop 11/12/20 at 06:50; Status DC Lidocaine HCl (Lidocaine Pf 2% Vial) 5 ml STK-MED ONCE .ROUTE ; Start 11/12/20 at 06:50; Stop 11/12/20 at 06:50; Status DC Ondansetron HCl (Zofran) 4 mg STK-MED ONCE .ROUTE ; Start 11/12/20 at 06:50; Stop 11/12/20 at 06:50; Status DC Rocuronium [place] (Zemuron) 50 mg STK-MED ONCE .ROUTE ; Start 11/12/20 at 06:51; Stop 11/12/20 at 06:51; Status DC Active Scripts Active Cyclobenzaprine Hcl 10 Mg Tablet 1 Tab PO TID [place] 5-325 Tablet (Acetaminophen/Hydrocodone Bitart) 1 Each Tablet 1 Tab PO PRN Q6HRS PRN Novolog Flexpen (Insulin Aspart) 100 Unit/1 Ml Insuln.pen 18 Unit SQ BEFORE DINNER [place] 5-325 Tablet (Acetaminophen/Hydrocodone Bitart) 1 Each Tablet 1 Tab PO BID Pantoprazole Sodium (Pantoprazole Sodium) 40 Mg Tablet.dr 40 Mg PO DAILYAC Metoprolol Tartrate 25 Mg Tablet 25 Mg PO BID Lisinopril 5 Mg Tablet 5 Mg PO DAILY Levemir Flextouch (Insulin Detemir) 100 Unit/1 Ml Insuln.pen 50 Units SQ QHS Reported Aspirin Buffered 325 Mg Tab (Aspirin/Calcium Carbonate/Mag) 325 Mg Tablet 325 Mg PO DAILY Metformin Hcl 1,000 Mg Tablet 1,000 Mg PO [id number] Simvastatin 40 Mg Tablet 40 Mg PO DAILY Allergies Allergies: Coded Allergies: No Known Drug Allergies (Unverified , 03/14/17) ROS Gastrointestinal: Yes Nausea, Yes Abdominal Pain Physical Exam General: Alert, Oriented X3, Cooperative, mild distress HEENT: Atraumatic, EOMI Lungs: Clear to auscultation, Normal air movement Heart: Regular rate, No murmurs Abdomen: Normal bowel sounds, Soft, Other (Tender to palpation right upper quadrant) Extremities: No edema Skin: No significant lesion Neuro: Normal speech Psych/Mental Status: Mental status NL Vitals VITALS Vital Signs Date Time Temp Pulse Resp B/P (MAP) Pulse Ox O2 Delivery O2 Flow Rate FiO2 11/12/20 06:19 152/63 11/12/20 03:00 100.1 73 24 92 Room Air 100.1 Labs Labs Laboratory Tests Test 11/11/20 10:50 11/11/20 10:54 11/11/20 11:40 11/11/20 14:00 Urine Collection Type Unknown Urine Color Alyssa Urine Clarity Clear Urine pH 5.5 (<5.0-8.0) Urine Specific Lutz 1.025 (1.000-1.030) Urine Protein >=300 mg/dL (NEG-TRACE) Urine Glucose (UA) 100 mg/dL (NEG) Urine Ketones (Stick) Negative mg/dL (NEG) Urine Blood Trace (NEG) Urine Nitrite Negative (NEG) Urine Bilirubin Small (NEG) Urine Urobilinogen Dipstick 1.0 mg/dL (0.2 mg/dL) Urine Leukocyte Esterase Negative (NEG) Urine RBC 0 /HPF (0-2) Urine WBC 1-4 /HPF (0-4) Urine Squamous Epithelial Cells Few /LPF Urine Amorphous Sediment Present /HPF Urine Bacteria 0 /HPF (0-FEW) Urine Hyaline Casts Few /HPF Urine Granular Casts Few /HPF Glucose (Fingerstick) 193 mg/dL (70-99) White Blood Count 10.8 x10^3/uL (4.0-11.0) Red Blood Count 4.01 x10^6/uL (4.30-5.70) Hemoglobin 12.4 g/dL (13.0-17.5) Hematocrit 36.4 % (39.0-53.0) Mean Corpuscular Volume 91 fL (79-100) Mean Corpuscular Hemoglobin 31 pg (25-35) Mean Corpuscular Hemoglobin Concent 34 g/dL (31-37) Red Cell Distribution Width 14.1 % (11.5-14.5) Platelet Count 228 x10^3/uL (140-400) Neutrophils (%) (Auto) 79 % (31-73) Lymphocytes (%) (Auto) 10 % (24-48) Monocytes (%) (Auto) 10 % (0-9) Eosinophils (%) (Auto) 1 % (0-3) Basophils (%) (Auto) 0 % (0-3) Neutrophils # (Auto) 8.5 x10^3/uL (1.8-7.7) Lymphocytes # (Auto) 1.1 x10^3/uL (1.0-4.8) Monocytes # (Auto) 1.1 x10^3/uL (0.0-1.1) Eosinophils # (Auto) 0.1 x10^3/uL (0.0-0.7) Basophils # (Auto) 0.0 x10^3/uL (0.0-0.2) Sodium Level 134 mmol/L (136-145) Potassium Level 2.9 mmol/L (3.5-5.1) Chloride Level 97 mmol/L (98-107) Carbon Dioxide Level 26 mmol/L (21-32) Anion Gap 11 (6-14) Blood Urea Nitrogen 23 mg/dL (8-26) Creatinine 1.8 mg/dL (0.7-1.3) Estimated GFR (Cockcroft-Gault) 36.8 BUN/Creatinine Ratio 13 (6-20) Glucose Level 191 mg/dL (70-99) Calcium Level 8.6 mg/dL (8.5-10.1) Magnesium Level 1.9 mg/dL (1.8-2.4) Total Bilirubin 1.2 mg/dL (0.2-1.0) Aspartate Amino Transf (AST/SGOT) 100 U/L (15-37) Alanine Aminotransferase (ALT/SGPT) 154 U/L (16-63) Alkaline Phosphatase 221 U/L (46-116) Troponin I Quantitative 0.022 ng/mL (0.000-0.055) 0.022 ng/mL (0.000-0.055) EZ-Lls-L-Type Natriuretic Peptide 998 pg/mL (0-449) Total Protein 7.3 g/dL (6.4-8.2) Albumin 2.5 g/dL (3.4-5.0) Albumin/Globulin Ratio 0.5 (1.0-1.7) Lipase 69 U/L (73-393) Test 11/11/20 15:08 11/11/20 18:43 11/11/20 19:30 11/11/20 23:55 SARS-CoV-2 Antigen (Rapid) Negative (NEGATIVE) Glucose (Fingerstick) 217 mg/dL (70-99) 121 mg/dL (70-99) Prothrombin Time 14.4 SEC (11.7-14.0) Prothromb Time International Ratio 1.2 (0.8-1.1) Sodium Level 139 mmol/L (136-145) Potassium Level 3.2 mmol/L (3.5-5.1) Chloride Level 101 mmol/L (98-107) Carbon Dioxide Level 25 mmol/L (21-32) Anion Gap 13 (6-14) Blood Urea Nitrogen 20 mg/dL (8-26) Creatinine 1.6 mg/dL (0.7-1.3) Estimated GFR (Cockcroft-Gault) 42.1 Glucose Level 201 mg/dL (70-99) Calcium Level 7.8 mg/dL (8.5-10.1) Troponin I Quantitative 0.033 ng/mL (0.000-0.055) Test 11/12/20 04:30 White Blood Count 7.7 x10^3/uL (4.0-11.0) Red Blood Count 3.66 x10^6/uL (4.30-5.70) Hemoglobin 11.6 g/dL (13.0-17.5) Hematocrit 33.2 % (39.0-53.0) Mean Corpuscular Volume 91 fL (79-100) Mean Corpuscular Hemoglobin 32 pg (25-35) Mean Corpuscular Hemoglobin Concent 35 g/dL (31-37) Red Cell Distribution Width 14.0 % (11.5-14.5) Platelet Count 223 x10^3/uL (140-400) Neutrophils (%) (Auto) 72 % (31-73) Lymphocytes (%) (Auto) 14 % (24-48) Monocytes (%) (Auto) 12 % (0-9) Eosinophils (%) (Auto) 1 % (0-3) Basophils (%) (Auto) 0 % (0-3) Neutrophils # (Auto) 5.5 x10^3/uL (1.8-7.7) Lymphocytes # (Auto) 1.1 x10^3/uL (1.0-4.8) Monocytes # (Auto) 0.9 x10^3/uL (0.0-1.1) Eosinophils # (Auto) 0.1 x10^3/uL (0.0-0.7) Basophils # (Auto) 0.0 x10^3/uL (0.0-0.2) Sodium Level 141 mmol/L (136-145) Potassium Level 3.3 mmol/L (3.5-5.1) Chloride Level 105 mmol/L (98-107) Carbon Dioxide Level 25 mmol/L (21-32) Anion Gap 11 (6-14) Blood Urea Nitrogen 16 mg/dL (8-26) Creatinine 1.5 mg/dL (0.7-1.3) Estimated GFR (Cockcroft-Gault) 45.4 BUN/Creatinine Ratio 11 (6-20) Glucose Level 89 mg/dL (70-99) Calcium Level 7.4 mg/dL (8.5-10.1) Total Bilirubin 0.8 mg/dL (0.2-1.0) Aspartate Amino Transf (AST/SGOT) 95 U/L (15-37) Alanine Aminotransferase (ALT/SGPT) 136 U/L (16-63) Alkaline Phosphatase 268 U/L (46-116) Troponin I Quantitative 0.046 ng/mL (0.000-0.055) Total Protein 5.8 g/dL (6.4-8.2) Albumin 2.2 g/dL (3.4-5.0) Albumin/Globulin Ratio 0.6 (1.0-1.7) Triglycerides Level 184 mg/dL (0-150) Cholesterol Level 124 mg/dL (0-200) LDL Cholesterol, Calculated 76 mg/dL (0-100) VLDL Cholesterol, Calculated 37 mg/dL (0-40) Non-HDL Cholesterol Calculated 113 mg/dL (0-129) HDL Cholesterol 11 mg/dL (40-60) Cholesterol/HDL Ratio 11.3 Laboratory Tests Test 11/11/20 10:50 11/11/20 10:54 11/11/20 11:40 11/11/20 14:00 Urine Collection Type Unknown Urine Color Alyssa Urine Clarity Clear Urine pH 5.5 (<5.0-8.0) Urine Specific [place] 1.025 (1.000-1.030) Urine Protein >=300 mg/dL (NEG-TRACE) Urine Glucose (UA) 100 mg/dL (NEG) Urine Ketones (Stick) Negative mg/dL (NEG) Urine Blood Trace (NEG) Urine Nitrite Negative (NEG) Urine Bilirubin Small (NEG) Urine Urobilinogen Dipstick 1.0 mg/dL (0.2 mg/dL) Urine Leukocyte Esterase Negative (NEG) Urine RBC 0 /HPF (0-2) Urine WBC 1-4 /HPF (0-4) Urine Squamous Epithelial Cells Few /LPF Urine Amorphous Sediment Present /HPF Urine Bacteria 0 /HPF (0-FEW) Urine Hyaline Casts Few /HPF Urine Granular Casts Few /HPF Glucose (Fingerstick) 193 mg/dL (70-99) White Blood Count 10.8 x10^3/uL (4.0-11.0) Red Blood Count 4.01 x10^6/uL (4.30-5.70) Hemoglobin 12.4 g/dL (13.0-17.5) Hematocrit 36.4 % (39.0-53.0) Mean Corpuscular Volume 91 fL (79-100) Mean Corpuscular Hemoglobin 31 pg (25-35) Mean Corpuscular Hemoglobin Concent 34 g/dL (31-37) Red Cell Distribution Width 14.1 % (11.5-14.5) Platelet Count 228 x10^3/uL (140-400) Neutrophils (%) (Auto) 79 % (31-73) Lymphocytes (%) (Auto) 10 % (24-48) Monocytes (%) (Auto) 10 % (0-9) Eosinophils (%) (Auto) 1 % (0-3) Basophils (%) (Auto) 0 % (0-3) Neutrophils # (Auto) 8.5 x10^3/uL (1.8-7.7) Lymphocytes # (Auto) 1.1 x10^3/uL (1.0-4.8) Monocytes # (Auto) 1.1 x10^3/uL (0.0-1.1) Eosinophils # (Auto) 0.1 x10^3/uL (0.0-0.7) Basophils # (Auto) 0.0 x10^3/uL (0.0-0.2) Sodium Level 134 mmol/L (136-145) Potassium Level 2.9 mmol/L (3.5-5.1) Chloride Level 97 mmol/L (98-107) Carbon Dioxide Level 26 mmol/L (21-32) Anion Gap 11 (6-14) Blood Urea Nitrogen 23 mg/dL (8-26) Creatinine 1.8 mg/dL (0.7-1.3) Estimated GFR (Cockcroft-Gault) 36.8 BUN/Creatinine Ratio 13 (6-20) Glucose Level 191 mg/dL (70-99) Calcium Level 8.6 mg/dL (8.5-10.1) Magnesium Level 1.9 mg/dL (1.8-2.4) Total Bilirubin 1.2 mg/dL (0.2-1.0) Aspartate Amino Transf (AST/SGOT) 100 U/L (15-37) Alanine Aminotransferase (ALT/SGPT) 154 U/L (16-63) Alkaline Phosphatase 221 U/L (46-116) Troponin I Quantitative 0.022 ng/mL (0.000-0.055) 0.022 ng/mL (0.000-0.055) CE-Csg-M-Type Natriuretic Peptide 998 pg/mL (0-449) Total Protein 7.3 g/dL (6.4-8.2) Albumin 2.5 g/dL (3.4-5.0) Albumin/Globulin Ratio 0.5 (1.0-1.7) Lipase 69 U/L (73-393) Test 11/11/20 15:08 11/11/20 18:43 11/11/20 19:30 11/11/20 23:55 SARS-CoV-2 Antigen (Rapid) Negative (NEGATIVE) Glucose (Fingerstick) 217 mg/dL (70-99) 121 mg/dL (70-99) Prothrombin Time 14.4 SEC (11.7-14.0) Prothromb Time International Ratio 1.2 (0.8-1.1) Sodium Level 139 mmol/L (136-145) Potassium Level 3.2 mmol/L (3.5-5.1) Chloride Level 101 mmol/L (98-107) Carbon Dioxide Level 25 mmol/L (21-32) Anion Gap 13 (6-14) Blood Urea Nitrogen 20 mg/dL (8-26) Creatinine 1.6 mg/dL (0.7-1.3) Estimated GFR (Cockcroft-Gault) 42.1 Glucose Level 201 mg/dL (70-99) Calcium Level 7.8 mg/dL (8.5-10.1) Troponin I Quantitative 0.033 ng/mL (0.000-0.055) Test 11/12/20 04:30 White Blood Count 7.7 x10^3/uL (4.0-11.0) Red Blood Count 3.66 x10^6/uL (4.30-5.70) Hemoglobin 11.6 g/dL (13.0-17.5) Hematocrit 33.2 % (39.0-53.0) Mean Corpuscular Volume 91 fL (79-100) Mean Corpuscular Hemoglobin 32 pg (25-35) Mean Corpuscular Hemoglobin Concent 35 g/dL (31-37) Red Cell Distribution Width 14.0 % (11.5-14.5) Platelet Count 223 x10^3/uL (140-400) Neutrophils (%) (Auto) 72 % (31-73) Lymphocytes (%) (Auto) 14 % (24-48) Monocytes (%) (Auto) 12 % (0-9) Eosinophils (%) (Auto) 1 % (0-3) Basophils (%) (Auto) 0 % (0-3) Neutrophils # (Auto) 5.5 x10^3/uL (1.8-7.7) Lymphocytes # (Auto) 1.1 x10^3/uL (1.0-4.8) Monocytes # (Auto) 0.9 x10^3/uL (0.0-1.1) Eosinophils # (Auto) 0.1 x10^3/uL (0.0-0.7) Basophils # (Auto) 0.0 x10^3/uL (0.0-0.2) Sodium Level 141 mmol/L (136-145) Potassium Level 3.3 mmol/L (3.5-5.1) Chloride Level 105 mmol/L (98-107) Carbon Dioxide Level 25 mmol/L (21-32) Anion Gap 11 (6-14) Blood Urea Nitrogen 16 mg/dL (8-26) Creatinine 1.5 mg/dL (0.7-1.3) Estimated GFR (Cockcroft-Gault) 45.4 BUN/Creatinine Ratio 11 (6-20) Glucose Level 89 mg/dL (70-99) Calcium Level 7.4 mg/dL (8.5-10.1) Total Bilirubin 0.8 mg/dL (0.2-1.0) Aspartate Amino Transf (AST/SGOT) 95 U/L (15-37) Alanine Aminotransferase (ALT/SGPT) 136 U/L (16-63) Alkaline Phosphatase 268 U/L (46-116) Troponin I Quantitative 0.046 ng/mL (0.000-0.055) Total Protein 5.8 g/dL (6.4-8.2) Albumin 2.2 g/dL (3.4-5.0) Albumin/Globulin Ratio 0.6 (1.0-1.7) Triglycerides Level 184 mg/dL (0-150) Cholesterol Level 124 mg/dL (0-200) LDL Cholesterol, Calculated 76 mg/dL (0-100) VLDL Cholesterol, Calculated 37 mg/dL (0-40) Non-HDL Cholesterol Calculated 113 mg/dL (0-129) HDL Cholesterol 11 mg/dL (40-60) Cholesterol/HDL Ratio 11.3 Assessment/Plan Assessment/Plan Acute cholecystitis plan laparoscopic cholecystectomy. Procedure was explained to the patient risk benefits were also discussed patient seemed understand gave a verbal written consent to have the procedure performed GARRET GARCIA MD Nov 12, 2020 07:00
[2020-11-12] MEDS ORDERED: GLYCOPYRROLATE 1 MG/5 ML VIAL. ONE (07:35)
[2020-11-12] MEDS ORDERED: NEOSTIGMINE METHYLSULFATE 5 MG/5 ML SYRINGE. ONE (07:35)
[2020-11-12] MEDS ORDERED: SEVOFLURANE 61 TO 120 MINUTES. IH ONE (07:35)
--- NOTE | 2020-11-12 08:04 | PDOC4 ---
Operative Note Operative Note Date: November 122020 at 0801 Preoperative diagnosis: Acute cholecystitis Postoperative diagnosis: Same Procedure: Laparoscopic cholecystectomy Surgeon: Shakeel Specimen: Gallbladder Dictation: Patient is 75-year-old male is admitted to the hospital with right upper quadrant abdominal pain ultrasound showing gallstones and thickened gallbladder wall consistent with acute cholecystitis. Procedure of laparoscopic cholecystectomy was explained to the patient in detail risk benefits were also discussed including bleeding infection injury to intra-abdominal contents possible necessitating further or open operations alternatives to this procedure also discussed with the patient who seemed to understand and gave both verbal and written consent to have the procedure performed. Patient was taken to the operating room placed in the supine position general anesthesia was initiated once patient was sleeping intubated his abdomen was prepped and draped usual sterile fashion using ChloraPrep. An area just below the umbilicus was injected with quarter percent Marcaine with epinephrine incision was made with 11 blade scalpel and a varies needle was placed within the abdomen creating pneumoperitoneum once this was complete 11 mm port was placed and a 5 mm camera's placed within the abdomen which was inspected was noted the gallbladder was thickened and omentum was caked to the gallbladder and adhesed to the anterior abdominal wall. A 5 mm port was placed in the epigastrium a 5 mm port was placed in the right midabdomen and a 5 mm port was placed in the right lateral abdomen. Adhesions to the abdominal wall were taken down with blunt dissection this exposed the dome of the gallbladder which was grasped retracted cephalad the omental adhesions to the gallbladder were taken down with blunt dissection down to the triangle. The infundibulum the gallbladder is grasped retracted laterally the adherent tissues of the triangle were taken down with blunt dissection exposing the cystic duct and cystic artery both were doubly clipped and transected the clip on the gallbladder side did not hold and fair amount of purulent material was expressed from the gallbladder this was suction from the abdomen the gallbladder was then taken off the liver with hook electrocautery placed in Endo Catch bag removed from the umbilicus the right upper quadrant was irrigated with copious amounts normal saline and suctioned dry hemostasis deemed to be appropriate the pneumoperitoneum was reduced and the ports removed the fascial defect at the umbilicus closed with a [id number] 0 Vicryl suture and the skin was reapproximated all port sites for subcuticular Monocryl Mastisol Steri-Strips and island dressings were applied. Patient was awakened and extubated in the operating room taken to recovery in stable condition all sponge instrument needle counts listed as correct estimated blood loss 20 mL GARRET GARCIA MD Nov 12, 2020 08:04
[2020-11-12] MEDS ORDERED: oxyCODONE/APAP 5/325 1 TAB TABLET PO PRN (08:15)
[2020-11-12] MEDS ORDERED: SUGAMMADEX SODIUM 200 MG/2 ML VIAL. IVP ONE (08:15)
--- NOTE | 2020-11-12 08:41 | PDOC ---
[facility] PROGRESS NOTE Date of Service DOS: DATE: 11/12/20 TIME: 08:34 Chief Complaint Chief Complaint A/P: Epigastric abdominal pain - seems to be acute Cholecystitis, but concerning for possible prior findings. May also be Hypokalemia - will replace, check mag RODRIGUE - vasomotor nephropathy, will hydrate gently, monitor renal function Chest pain - likely GERD vs gastritis vs PUD, however with his CAD history will trend troponins, ask cardiology to see Transaminitis - likely from gallbladder disease vs possible COVID 19, though he denies exposure Elevated troponin - likely demand ischemia, will trend. cardiology consulted DM2 - with hyperglycemia - will keep Npo, sliding scale Anemia - likely of chronic disease CAD s/p CABG x4 2016 - has outpatient f/u, taking meds Abnormal CXR - will treat as pneumonia, likely gram negative given his age and risk factors. Will f/u COVID 19 results FEN - NPO PPX - SCDs FULL CODE Dispo - inpatient for above History of Present Illness History of Present Illness Mr Franco is a 75 year old male with history of hypertension, diabetes, coronary disease status post CABG x4 who presents to the ED with his daughter with epigastric pain and chest pain as well as right flank pain. Pain is epigastric and substernal, sharp, intermittent, 7/10 with occasional radiation to right flank, though it is not currently radiating. Food does not affect his pain. No recent sick contacts. He does have some shortness of breath that is intermittent. No cough. Occasional chills. He was seen in the emergency department on Sunday, November 06 for flank pain. Nothing makes it better or worse. He reports that he had a decrease in appetite . He said some nausea without vomiting. Patient denies diarrhea, no fevers, no syncope headache neck pain. He has had some intermittent chills. Patient is not a smoker. Denies daily drugs or alcohol. Patient is accompanied by family member who helps with history. EKG appears normal sinus rhythm with ventricular rate of 74 bpm. MT interval 194 ms. QRS duration 96 ms. QTc 460 ms. PAC noted. No acute ST segment elevations. Chest radiograph with suspected focal right upper lobe interstitial infiltrate or scarring. RUQ US with debris within the gallbladder with gallbladder wall thickening and pericholecystic edema. Echogenic liver. Labs significant for WBC 10.8 with left shift, Hb 12.4, platelets 228, NA 134, K2.9, BUN 23, CR 1.8, glucose 191, albumin 2.5, alk phos 221, ALT 154, AST 100, bilirubin 1.2, lipase 69, BNP 998, troponin 0 0.022 x 2 Admitted for further care. 11/12: Patient seen and evaluated, s/p laparoscopic cholecystectomy. Patient was febrile overnight. Reports some incisional tenderness. Chest x-ray on admission showed suspected focal right upper lobe interstitial infiltrate or scarring. COVID-19 and influenza pending. Vitals/I&O Vitals/I&O: Vital Signs Date Time Temp Pulse Resp B/P (MAP) Pulse Ox O2 Delivery O2 Flow Rate FiO2 11/12/20 08:18 Mask 13 11/12/20 08:18 98.2 74 29 138/58 99 98.2 I & O 11/11/20 11/11/20 11/12/20 15:00 23:00 07:00 Intake Total 0 ml 0 ml Output Total 300 ml 300 ml Balance -300 ml -300 ml Physical Exam General: Alert, Oriented X3, Cooperative, No acute distress Heart: Regular rate, No murmurs Lungs: Clear Abdomen: Normal bowel sounds, Soft, Other (Tender to palpation right upper quadrant) Extremities: No edema Skin: No significant lesion Labs Labs: Laboratory Tests Test 11/11/20 10:50 11/11/20 10:54 11/11/20 11:40 11/11/20 14:00 Urine Collection Type Unknown Urine Color Alyssa Urine Clarity Clear Urine pH 5.5 (<5.0-8.0) Urine Specific [place] 1.025 (1.000-1.030) Urine Protein >=300 mg/dL (NEG-TRACE) Urine Glucose (UA) 100 mg/dL (NEG) Urine Ketones (Stick) Negative mg/dL (NEG) Urine Blood Trace (NEG) Urine Nitrite Negative (NEG) Urine Bilirubin Small (NEG) Urine Urobilinogen Dipstick 1.0 mg/dL (0.2 mg/dL) Urine Leukocyte Esterase Negative (NEG) Urine RBC 0 /HPF (0-2) Urine WBC 1-4 /HPF (0-4) Urine Squamous Epithelial Cells Few /LPF Urine Amorphous Sediment Present /HPF Urine Bacteria 0 /HPF (0-FEW) Urine Hyaline Casts Few /HPF Urine Granular Casts Few /HPF Glucose (Fingerstick) 193 mg/dL (70-99) White Blood Count 10.8 x10^3/uL (4.0-11.0) Red Blood Count 4.01 x10^6/uL (4.30-5.70) Hemoglobin 12.4 g/dL (13.0-17.5) Hematocrit 36.4 % (39.0-53.0) Mean Corpuscular Volume 91 fL (79-100) Mean Corpuscular Hemoglobin 31 pg (25-35) Mean Corpuscular Hemoglobin Concent 34 g/dL (31-37) Red Cell Distribution Width 14.1 % (11.5-14.5) Platelet Count 228 x10^3/uL (140-400) Neutrophils (%) (Auto) 79 % (31-73) Lymphocytes (%) (Auto) 10 % (24-48) Monocytes (%) (Auto) 10 % (0-9) Eosinophils (%) (Auto) 1 % (0-3) Basophils (%) (Auto) 0 % (0-3) Neutrophils # (Auto) 8.5 x10^3/uL (1.8-7.7) Lymphocytes # (Auto) 1.1 x10^3/uL (1.0-4.8) Monocytes # (Auto) 1.1 x10^3/uL (0.0-1.1) Eosinophils # (Auto) 0.1 x10^3/uL (0.0-0.7) Basophils # (Auto) 0.0 x10^3/uL (0.0-0.2) Sodium Level 134 mmol/L (136-145) Potassium Level 2.9 mmol/L (3.5-5.1) Chloride Level 97 mmol/L (98-107) Carbon Dioxide Level 26 mmol/L (21-32) Anion Gap 11 (6-14) Blood Urea Nitrogen 23 mg/dL (8-26) Creatinine 1.8 mg/dL (0.7-1.3) Estimated GFR (Cockcroft-Gault) 36.8 BUN/Creatinine Ratio 13 (6-20) Glucose Level 191 mg/dL (70-99) Calcium Level 8.6 mg/dL (8.5-10.1) Magnesium Level 1.9 mg/dL (1.8-2.4) Total Bilirubin 1.2 mg/dL (0.2-1.0) Aspartate Amino Transf (AST/SGOT) 100 U/L (15-37) Alanine Aminotransferase (ALT/SGPT) 154 U/L (16-63) Alkaline Phosphatase 221 U/L (46-116) Troponin I Quantitative 0.022 ng/mL (0.000-0.055) 0.022 ng/mL (0.000-0.055) AE-[id number]-M-Type Natriuretic Peptide 998 pg/mL (0-449) Total Protein 7.3 g/dL (6.4-8.2) Albumin 2.5 g/dL (3.4-5.0) Albumin/Globulin Ratio 0.5 (1.0-1.7) Lipase 69 U/L (73-393) Test 11/11/20 15:08 11/11/20 18:43 11/11/20 19:30 11/11/20 23:55 SARS-CoV-2 Antigen (Rapid) Negative (NEGATIVE) Glucose (Fingerstick) 217 mg/dL (70-99) 121 mg/dL (70-99) Prothrombin Time 14.4 SEC (11.7-14.0) Prothromb Time International Ratio 1.2 (0.8-1.1) Sodium Level 139 mmol/L (136-145) Potassium Level 3.2 mmol/L (3.5-5.1) Chloride Level 101 mmol/L (98-107) Carbon Dioxide Level 25 mmol/L (21-32) Anion Gap 13 (6-14) Blood Urea Nitrogen 20 mg/dL (8-26) Creatinine 1.6 mg/dL (0.7-1.3) Estimated GFR (Cockcroft-Gault) 42.1 Glucose Level 201 mg/dL (70-99) Calcium Level 7.8 mg/dL (8.5-10.1) Troponin I Quantitative 0.033 ng/mL (0.000-0.055) Test 11/12/20 04:30 White Blood Count 7.7 x10^3/uL (4.0-11.0) Red Blood Count 3.66 x10^6/uL (4.30-5.70) Hemoglobin 11.6 g/dL (13.0-17.5) Hematocrit 33.2 % (39.0-53.0) Mean Corpuscular Volume 91 fL (79-100) Mean Corpuscular Hemoglobin 32 pg (25-35) Mean Corpuscular Hemoglobin Concent 35 g/dL (31-37) Red Cell Distribution Width 14.0 % (11.5-14.5) Platelet Count 223 x10^3/uL (140-400) Neutrophils (%) (Auto) 72 % (31-73) Lymphocytes (%) (Auto) 14 % (24-48) Monocytes (%) (Auto) 12 % (0-9) Eosinophils (%) (Auto) 1 % (0-3) Basophils (%) (Auto) 0 % (0-3) Neutrophils # (Auto) 5.5 x10^3/uL (1.8-7.7) Lymphocytes # (Auto) 1.1 x10^3/uL (1.0-4.8) Monocytes # (Auto) 0.9 x10^3/uL (0.0-1.1) Eosinophils # (Auto) 0.1 x10^3/uL (0.0-0.7) Basophils # (Auto) 0.0 x10^3/uL (0.0-0.2) Sodium Level 141 mmol/L (136-145) Potassium Level 3.3 mmol/L (3.5-5.1) Chloride Level 105 mmol/L (98-107) Carbon Dioxide Level 25 mmol/L (21-32) Anion Gap 11 (6-14) Blood Urea Nitrogen 16 mg/dL (8-26) Creatinine 1.5 mg/dL (0.7-1.3) Estimated GFR (Cockcroft-Gault) 45.4 BUN/Creatinine Ratio 11 (6-20) Glucose Level 89 mg/dL (70-99) Calcium Level 7.4 mg/dL (8.5-10.1) Total Bilirubin 0.8 mg/dL (0.2-1.0) Aspartate Amino Transf (AST/SGOT) 95 U/L (15-37) Alanine Aminotransferase (ALT/SGPT) 136 U/L (16-63) Alkaline Phosphatase 268 U/L (46-116) Troponin I Quantitative 0.046 ng/mL (0.000-0.055) Total Protein 5.8 g/dL (6.4-8.2) Albumin 2.2 g/dL (3.4-5.0) Albumin/Globulin Ratio 0.6 (1.0-1.7) Triglycerides Level 184 mg/dL (0-150) Cholesterol Level 124 mg/dL (0-200) LDL Cholesterol, Calculated 76 mg/dL (0-100) VLDL Cholesterol, Calculated 37 mg/dL (0-40) Non-HDL Cholesterol Calculated 113 mg/dL (0-129) HDL Cholesterol 11 mg/dL (40-60) Cholesterol/HDL Ratio 11.3 Assessment and Plan Assessmemt and Plan Problems Medical Problems: (1) Abdominal pain Status: Acute (2) Cholecystitis Status: Acute (3) Hypokalemia Status: Acute (4) Transaminitis Status: Acute Comment Review of Relevant I have reviewed the following items gutierrez (where applicable) has been applied. Medications: Current Medications Medications (Trade) Dose Ordered Sig/Raul Route PRN Reason Start Time Stop Time Status Last Admin Dose Admin Multi-Ingredient Mouthwash/Gargle (Gi Cocktail) 20 ml 1X ONCE SWSW 11/11/20 10:30 11/11/20 10:31 DC 11/11/20 10:49 Potassium Chloride/Water 100 ml @ 50 mls/hr 1X ONCE IV 11/11/20 12:45 11/11/20 14:44 DC 11/11/20 13:08 Ceftriaxone Sodium (Rocephin) 1 gm 1X ONCE IVP 11/11/20 14:00 11/11/20 14:07 DC 11/11/20 15:12 Azithromycin 250 ml @ 250 mls/hr 1X ONCE IV 11/11/20 14:00 11/11/20 14:59 DC 11/11/20 15:17 Sodium Chloride 1,000 ml @ 75 mls/hr [id number] IV 11/11/20 14:15 11/11/20 16:59 DC 11/11/20 14:15 Insulin Human Lispro (HumaLOG) 0-9 UNITS Q6HRS SQ 11/11/20 18:00 11/11/20 18:57 Piperacillin Sod/ Tazobactam Sod 3.375 gm/Sodium Chloride 50 ml @ 100 mls/hr 1X ONCE IV 11/11/20 16:00 11/11/20 16:29 DC 11/11/20 17:30 Piperacillin Sod/ Tazobactam Sod 2.25 gm/Sodium Chloride 50 ml @ 100 mls/hr Q6HRS IV 11/11/20 23:00 11/12/20 06:18 Metoprolol Tartrate (Lopressor Vial) 5 mg Q6HRS IVP 11/11/20 18:00 11/12/20 06:19 Potassium Chloride/Sodium Chloride 1,000 ml @ 75 mls/hr [id number] IV 11/11/20 17:00 11/12/20 06:19 DC 11/11/20 18:31 Bupivacaine HCl/ Epinephrine Bitart (Sensorcain-Epi 0.25% Kit) 30 ml STK-MED ONCE .ROUTE 11/12/20 06:58 11/12/20 06:58 DC 11/12/20 07:33 Justifications for Admission Other Justification HARISH QUESADA MD Nov 12, 2020 08:41
[2020-11-12] MEDS: IV NORMAL SALINE 1000ML BAG 1,000 ML IV SCH ×2 (10:03→21:44)
[2020-11-12 11:00] VITALS: BP 154/68
--- NOTE | 2020-11-12 14:51 | PDOC ---
[facility] Progress Notes Date and Time Date of Service 11/12/2020 Time of Evaluation 1330 Subjective Subjective: No Chest Pain, No shortness of breath, No Palpitations Vitals Vitals Vital Signs Date Time Temp Pulse Resp B/P (MAP) Pulse Ox O2 Delivery O2 Flow Rate FiO2 11/12/20 11:47 72 134/63 11/12/20 11:00 99.2 18 93 Room Air 99.2 11/12/20 08:49 10 Weight Weight [ ] Input and Output Intake and Output Intake and Output 11/12/20 07:00 Intake Total 0 ml Output Total 600 ml Balance -600 ml Intake Oral 0 ml Output Urine Total 600 ml Laboratory Labs Laboratory Tests Test 11/11/20 15:08 11/11/20 18:43 11/11/20 19:30 11/11/20 23:55 SARS-CoV-2 Antigen (Rapid) Negative (NEGATIVE) Glucose (Fingerstick) 217 mg/dL (70-99) 121 mg/dL (70-99) Prothrombin Time 14.4 SEC (11.7-14.0) Prothromb Time International Ratio 1.2 (0.8-1.1) Sodium Level 139 mmol/L (136-145) Potassium Level 3.2 mmol/L (3.5-5.1) Chloride Level 101 mmol/L (98-107) Carbon Dioxide Level 25 mmol/L (21-32) Anion Gap 13 (6-14) Blood Urea Nitrogen 20 mg/dL (8-26) Creatinine 1.6 mg/dL (0.7-1.3) Estimated GFR (Cockcroft-Gault) 42.1 Glucose Level 201 mg/dL (70-99) Calcium Level 7.8 mg/dL (8.5-10.1) Troponin I Quantitative 0.033 ng/mL (0.000-0.055) Test 11/12/20 04:30 11/12/20 08:39 11/12/20 10:54 White Blood Count 7.7 x10^3/uL (4.0-11.0) Red Blood Count 3.66 x10^6/uL (4.30-5.70) Hemoglobin 11.6 g/dL (13.0-17.5) Hematocrit 33.2 % (39.0-53.0) Mean Corpuscular Volume 91 fL (79-100) Mean Corpuscular Hemoglobin 32 pg (25-35) Mean Corpuscular Hemoglobin Concent 35 g/dL (31-37) Red Cell Distribution Width 14.0 % (11.5-14.5) Platelet Count 223 x10^3/uL (140-400) Neutrophils (%) (Auto) 72 % (31-73) Lymphocytes (%) (Auto) 14 % (24-48) Monocytes (%) (Auto) 12 % (0-9) Eosinophils (%) (Auto) 1 % (0-3) Basophils (%) (Auto) 0 % (0-3) Neutrophils # (Auto) 5.5 x10^3/uL (1.8-7.7) Lymphocytes # (Auto) 1.1 x10^3/uL (1.0-4.8) Monocytes # (Auto) 0.9 x10^3/uL (0.0-1.1) Eosinophils # (Auto) 0.1 x10^3/uL (0.0-0.7) Basophils # (Auto) 0.0 x10^3/uL (0.0-0.2) Sodium Level 141 mmol/L (136-145) Potassium Level 3.3 mmol/L (3.5-5.1) Chloride Level 105 mmol/L (98-107) Carbon Dioxide Level 25 mmol/L (21-32) Anion Gap 11 (6-14) Blood Urea Nitrogen 16 mg/dL (8-26) Creatinine 1.5 mg/dL (0.7-1.3) Estimated GFR (Cockcroft-Gault) 45.4 BUN/Creatinine Ratio 11 (6-20) Glucose Level 89 mg/dL (70-99) Calcium Level 7.4 mg/dL (8.5-10.1) Total Bilirubin 0.8 mg/dL (0.2-1.0) Aspartate Amino Transf (AST/SGOT) 95 U/L (15-37) Alanine Aminotransferase (ALT/SGPT) 136 U/L (16-63) Alkaline Phosphatase 268 U/L (46-116) Troponin I Quantitative 0.046 ng/mL (0.000-0.055) Total Protein 5.8 g/dL (6.4-8.2) Albumin 2.2 g/dL (3.4-5.0) Albumin/Globulin Ratio 0.6 (1.0-1.7) Triglycerides Level 184 mg/dL (0-150) Cholesterol Level 124 mg/dL (0-200) LDL Cholesterol, Calculated 76 mg/dL (0-100) VLDL Cholesterol, Calculated 37 mg/dL (0-40) Non-HDL Cholesterol Calculated 113 mg/dL (0-129) HDL Cholesterol 11 mg/dL (40-60) Cholesterol/HDL Ratio 11.3 Glucose (Fingerstick) 107 mg/dL (70-99) 159 mg/dL (70-99) Physical Exam Chest: Symmetric LUNGS: Other (diminished bases) Heart: RRR (SR) Abdomen: Other (S/P Lap cinda today) Extremities: No Calf Tenderness Neurology: alert, oriented, follow commands Assessment Assessment 1. Atypical chest pain: from acute cholecystitis. S/P Lap cinda today tolerated procedure well 2. CAD; CABGx4 in 2013, clinically stable. Trops nml EKG SR without acute changes 3. RODRIGUE on CKD2: baseline Cr at 1.2-1.5. back to baseline 4. HTN: controlled 5. HLP with hypertriglyceridemia 6. DM2 7. Transaminitis 8. Hypokalemia 9. PUI 10. Hypoxia: 88-90% RA possibly from atelectasis Recommendations 1. IV lopresor currently. Discussed with RN if pt is tolerating advanced diet then could switch to PO lopressor. 2. Discussed with RN, pulmonary toiletting and aggressive IS 3. IVF while NPO. No NSAIDs Hold home ACEi. 4. Replace K 5. Will follow peripherally. Justicifation of Admission Dx: Justifications for Admission: Justification of Admission Dx: Yes JANET LUCERO DIRECTOR [employer] Nov 12, 2020 14:51
[2020-11-12 15:00] VITALS: BP 138/65
[2020-11-12] MEDS ORDERED: POTASSIUM CHLORIDE 20 MEQ TABLET.ER. PO ONE (15:00)
[2020-11-12] MEDS: oxyCODONE/APAP 5/325 1 TAB TABLET PO PRN (15:23)
[2020-11-12 19:53] VITALS: BP 137/62
[2020-11-12] MEDS: LACTOBACILLUS RHAMNOSUS GG 1 CAPSULE. PO SCH (21:44)
[2020-11-12] MEDS: METOPROLOL TART IMMED RELEASE 25 MG TABLET. PO SCH (21:44)
[2020-11-12 23:48] VITALS: BP 132/62
[2020-11-13] MEDS: PIPERACILLIN/TAZOBACTAM 2.25 GM in IV NORMAL SALINE 50ML 50 ML IV SCH ×5 (00:53→22:51)
[2020-11-13 03:57] VITALS: BP 121/56
[2020-11-13 05:18] LABS: BASO % 0 % (0-3); EOS % 0 % (0-3); HEMATOCRIT 32.5 % (39.0-53.0); HEMOGLOBIN 10.8 g/dL (13.0-17.5); LYMPH # 0.9 x10^3/uL (1.0-4.8); LYMPH % 10 % (24-48); MEAN CORPUSCULAR HEMOGLOBIN 31 pg (25-35); MEAN CORPUSCULAR HGB CONC 33 g/dL (31-37); MEAN CORPUSCULAR VOLUME 93 fL (79-100); MONO # 0.7 x10^3/uL (0.0-1.1); MONO % 8 % (0-9); NEUT # 7.5 x10^3/uL (1.8-7.7); NEUT % 82 % (31-73); PLATELET COUNT 250 x10^3/uL (140-400); RED CELL DISTRIBUTION WIDTH 14.7 % (11.5-14.5); WHITE BLOOD COUNT 9.2 x10^3/uL (4.0-11.0)
[2020-11-13 05:39] LABS: CALCIUM 7.6 mg/dL (8.5-10.1); CREATININE 1.8 mg/dL (0.7-1.3); GFR 36.8; POTASSIUM 4.3 mmol/L (3.5-5.1)
[2020-11-13 07:00] VITALS: BP 136/61
--- NOTE | 2020-11-13 07:59 | PDOC ---
SURGICAL PROGRESS NOTE DATE: 11/13/20 TIME: 07:58 Subjective Patient doing quite well tolerating diet minimal abdominal pain Vital Signs Vital Signs Date Time Temp Pulse Resp B/P (MAP) Pulse Ox O2 Delivery O2 Flow Rate FiO2 11/13/20 03:57 97.7 61 16 121/56 (77) 95 Nasal Cannula 1.0 97.7 I&O Intake and Output 11/13/20 07:00 Intake Total 1490 ml Output Total 760 ml Balance 730 ml Intake Oral 540 ml IV Total 950 ml Output Urine Total 750 ml Estimated Blood Loss 10 ml PATIENT HAS A FLOOD: No General: Alert, Oriented X3, Cooperative, mild distress Abdomen: Normal bowel sounds, Soft, Other (Mild incisional tenderness wounds clean dry and intact) Labs Laboratory Tests Test 11/11/20 10:50 11/11/20 10:54 11/11/20 11:40 11/11/20 14:00 Urine Collection Type Unknown Urine Color Alyssa Urine Clarity Clear Urine pH 5.5 (<5.0-8.0) Urine Specific [place] 1.025 (1.000-1.030) Urine Protein >=300 mg/dL (NEG-TRACE) Urine Glucose (UA) 100 mg/dL (NEG) Urine Ketones (Stick) Negative mg/dL (NEG) Urine Blood Trace (NEG) Urine Nitrite Negative (NEG) Urine Bilirubin Small (NEG) Urine Urobilinogen Dipstick 1.0 mg/dL (0.2 mg/dL) Urine Leukocyte Esterase Negative (NEG) Urine RBC 0 /HPF (0-2) Urine WBC 1-4 /HPF (0-4) Urine Squamous Epithelial Cells Few /LPF Urine Amorphous Sediment Present /HPF Urine Bacteria 0 /HPF (0-FEW) Urine Hyaline Casts Few /HPF Urine Granular Casts Few /HPF Glucose (Fingerstick) 193 mg/dL (70-99) White Blood Count 10.8 x10^3/uL (4.0-11.0) Red Blood Count 4.01 x10^6/uL (4.30-5.70) Hemoglobin 12.4 g/dL (13.0-17.5) Hematocrit 36.4 % (39.0-53.0) Mean Corpuscular Volume 91 fL (79-100) Mean Corpuscular Hemoglobin 31 pg (25-35) Mean Corpuscular Hemoglobin Concent 34 g/dL (31-37) Red Cell Distribution Width 14.1 % (11.5-14.5) Platelet Count 228 x10^3/uL (140-400) Neutrophils (%) (Auto) 79 % (31-73) Lymphocytes (%) (Auto) 10 % (24-48) Monocytes (%) (Auto) 10 % (0-9) Eosinophils (%) (Auto) 1 % (0-3) Basophils (%) (Auto) 0 % (0-3) Neutrophils # (Auto) 8.5 x10^3/uL (1.8-7.7) Lymphocytes # (Auto) 1.1 x10^3/uL (1.0-4.8) Monocytes # (Auto) 1.1 x10^3/uL (0.0-1.1) Eosinophils # (Auto) 0.1 x10^3/uL (0.0-0.7) Basophils # (Auto) 0.0 x10^3/uL (0.0-0.2) Sodium Level 134 mmol/L (136-145) Potassium Level 2.9 mmol/L (3.5-5.1) Chloride Level 97 mmol/L (98-107) Carbon Dioxide Level 26 mmol/L (21-32) Anion Gap 11 (6-14) Blood Urea Nitrogen 23 mg/dL (8-26) Creatinine 1.8 mg/dL (0.7-1.3) Estimated GFR (Cockcroft-Gault) 36.8 BUN/Creatinine Ratio 13 (6-20) Glucose Level 191 mg/dL (70-99) Calcium Level 8.6 mg/dL (8.5-10.1) Magnesium Level 1.9 mg/dL (1.8-2.4) Total Bilirubin 1.2 mg/dL (0.2-1.0) Aspartate Amino Transf (AST/SGOT) 100 U/L (15-37) Alanine Aminotransferase (ALT/SGPT) 154 U/L (16-63) Alkaline Phosphatase 221 U/L (46-116) Troponin I Quantitative 0.022 ng/mL (0.000-0.055) 0.022 ng/mL (0.000-0.055) LA-Ynp-T-Type Natriuretic Peptide 998 pg/mL (0-449) Total Protein 7.3 g/dL (6.4-8.2) Albumin 2.5 g/dL (3.4-5.0) Albumin/Globulin Ratio 0.5 (1.0-1.7) Lipase 69 U/L (73-393) Test 11/11/20 15:08 11/11/20 17:30 11/11/20 18:43 11/11/20 19:30 SARS-CoV-2 Antigen (Rapid) Negative (NEGATIVE) Coronavirus (PCR) Not detected (Not Detected) Glucose (Fingerstick) 217 mg/dL (70-99) Prothrombin Time 14.4 SEC (11.7-14.0) Prothromb Time International Ratio 1.2 (0.8-1.1) Sodium Level 139 mmol/L (136-145) Potassium Level 3.2 mmol/L (3.5-5.1) Chloride Level 101 mmol/L (98-107) Carbon Dioxide Level 25 mmol/L (21-32) Anion Gap 13 (6-14) Blood Urea Nitrogen 20 mg/dL (8-26) Creatinine 1.6 mg/dL (0.7-1.3) Estimated GFR (Cockcroft-Gault) 42.1 Glucose Level 201 mg/dL (70-99) Calcium Level 7.8 mg/dL (8.5-10.1) Troponin I Quantitative 0.033 ng/mL (0.000-0.055) Test 11/11/20 23:55 11/12/20 04:30 11/12/20 05:55 11/12/20 08:39 Glucose (Fingerstick) 121 mg/dL (70-99) 87 mg/dL (70-99) 107 mg/dL (70-99) White Blood Count 7.7 x10^3/uL (4.0-11.0) Red Blood Count 3.66 x10^6/uL (4.30-5.70) Hemoglobin 11.6 g/dL (13.0-17.5) Hematocrit 33.2 % (39.0-53.0) Mean Corpuscular Volume 91 fL (79-100) Mean Corpuscular Hemoglobin 32 pg (25-35) Mean Corpuscular Hemoglobin Concent 35 g/dL (31-37) Red Cell Distribution Width 14.0 % (11.5-14.5) Platelet Count 223 x10^3/uL (140-400) Neutrophils (%) (Auto) 72 % (31-73) Lymphocytes (%) (Auto) 14 % (24-48) Monocytes (%) (Auto) 12 % (0-9) Eosinophils (%) (Auto) 1 % (0-3) Basophils (%) (Auto) 0 % (0-3) Neutrophils # (Auto) 5.5 x10^3/uL (1.8-7.7) Lymphocytes # (Auto) 1.1 x10^3/uL (1.0-4.8) Monocytes # (Auto) 0.9 x10^3/uL (0.0-1.1) Eosinophils # (Auto) 0.1 x10^3/uL (0.0-0.7) Basophils # (Auto) 0.0 x10^3/uL (0.0-0.2) Sodium Level 141 mmol/L (136-145) Potassium Level 3.3 mmol/L (3.5-5.1) Chloride Level 105 mmol/L (98-107) Carbon Dioxide Level 25 mmol/L (21-32) Anion Gap 11 (6-14) Blood Urea Nitrogen 16 mg/dL (8-26) Creatinine 1.5 mg/dL (0.7-1.3) Estimated GFR (Cockcroft-Gault) 45.4 BUN/Creatinine Ratio 11 (6-20) Glucose Level 89 mg/dL (70-99) Calcium Level 7.4 mg/dL (8.5-10.1) Total Bilirubin 0.8 mg/dL (0.2-1.0) Aspartate Amino Transf (AST/SGOT) 95 U/L (15-37) Alanine Aminotransferase (ALT/SGPT) 136 U/L (16-63) Alkaline Phosphatase 268 U/L (46-116) Troponin I Quantitative 0.046 ng/mL (0.000-0.055) Total Protein 5.8 g/dL (6.4-8.2) Albumin 2.2 g/dL (3.4-5.0) Albumin/Globulin Ratio 0.6 (1.0-1.7) Triglycerides Level 184 mg/dL (0-150) Cholesterol Level 124 mg/dL (0-200) LDL Cholesterol, Calculated 76 mg/dL (0-100) VLDL Cholesterol, Calculated 37 mg/dL (0-40) Non-HDL Cholesterol Calculated 113 mg/dL (0-129) HDL Cholesterol 11 mg/dL (40-60) Cholesterol/HDL Ratio 11.3 Test 11/12/20 10:54 11/12/20 16:09 11/12/20 20:36 11/13/20 03:30 Glucose (Fingerstick) 159 mg/dL (70-99) 325 mg/dL (70-99) 303 mg/dL (70-99) White Blood Count 9.2 x10^3/uL (4.0-11.0) Red Blood Count 3.50 x10^6/uL (4.30-5.70) Hemoglobin 10.8 g/dL (13.0-17.5) Hematocrit 32.5 % (39.0-53.0) Mean Corpuscular Volume 93 fL (79-100) Mean Corpuscular Hemoglobin 31 pg (25-35) Mean Corpuscular Hemoglobin Concent 33 g/dL (31-37) Red Cell Distribution Width 14.7 % (11.5-14.5) Platelet Count 250 x10^3/uL (140-400) Neutrophils (%) (Auto) 82 % (31-73) Lymphocytes (%) (Auto) 10 % (24-48) Monocytes (%) (Auto) 8 % (0-9) Eosinophils (%) (Auto) 0 % (0-3) Basophils (%) (Auto) 0 % (0-3) Neutrophils # (Auto) 7.5 x10^3/uL (1.8-7.7) Lymphocytes # (Auto) 0.9 x10^3/uL (1.0-4.8) Monocytes # (Auto) 0.7 x10^3/uL (0.0-1.1) Eosinophils # (Auto) 0.0 x10^3/uL (0.0-0.7) Basophils # (Auto) 0.0 x10^3/uL (0.0-0.2) Sodium Level 138 mmol/L (136-145) Potassium Level 4.3 mmol/L (3.5-5.1) Chloride Level 105 mmol/L (98-107) Carbon Dioxide Level 22 mmol/L (21-32) Anion Gap 11 (6-14) Blood Urea Nitrogen 23 mg/dL (8-26) Creatinine 1.8 mg/dL (0.7-1.3) Estimated GFR (Cockcroft-Gault) 36.8 Glucose Level 326 mg/dL (70-99) Calcium Level 7.6 mg/dL (8.5-10.1) Laboratory Tests Test 11/12/20 08:39 11/12/20 10:54 11/12/20 16:09 11/12/20 20:36 Glucose (Fingerstick) 107 mg/dL (70-99) 159 mg/dL (70-99) 325 mg/dL (70-99) 303 mg/dL (70-99) Test 11/13/20 03:30 White Blood Count 9.2 x10^3/uL (4.0-11.0) Red Blood Count 3.50 x10^6/uL (4.30-5.70) Hemoglobin 10.8 g/dL (13.0-17.5) Hematocrit 32.5 % (39.0-53.0) Mean Corpuscular Volume 93 fL (79-100) Mean Corpuscular Hemoglobin 31 pg (25-35) Mean Corpuscular Hemoglobin Concent 33 g/dL (31-37) Red Cell Distribution Width 14.7 % (11.5-14.5) Platelet Count 250 x10^3/uL (140-400) Neutrophils (%) (Auto) 82 % (31-73) Lymphocytes (%) (Auto) 10 % (24-48) Monocytes (%) (Auto) 8 % (0-9) Eosinophils (%) (Auto) 0 % (0-3) Basophils (%) (Auto) 0 % (0-3) Neutrophils # (Auto) 7.5 x10^3/uL (1.8-7.7) Lymphocytes # (Auto) 0.9 x10^3/uL (1.0-4.8) Monocytes # (Auto) 0.7 x10^3/uL (0.0-1.1) Eosinophils # (Auto) 0.0 x10^3/uL (0.0-0.7) Basophils # (Auto) 0.0 x10^3/uL (0.0-0.2) Sodium Level 138 mmol/L (136-145) Potassium Level 4.3 mmol/L (3.5-5.1) Chloride Level 105 mmol/L (98-107) Carbon Dioxide Level 22 mmol/L (21-32) Anion Gap 11 (6-14) Blood Urea Nitrogen 23 mg/dL (8-26) Creatinine 1.8 mg/dL (0.7-1.3) Estimated GFR (Cockcroft-Gault) 36.8 Glucose Level 326 mg/dL (70-99) Calcium Level 7.6 mg/dL (8.5-10.1) Problem List Problems Medical Problems: (1) Abdominal pain Status: Acute (2) Cholecystitis Status: Acute (3) Hypokalemia Status: Acute (4) Transaminitis Status: Acute Assessment/Plan Status post laparoscopic cholecystectomy doing quite well Surgically stable to be discharged from surgical standpoint Follow-up with Dr. Garcia in 2 weeks Maintain low fat diet no lifting more than 20 pounds Justicifation of Admission Dx: Justifications for Admission: Justification of Admission Dx: Yes GARRET GARCIA MD Nov 13, 2020 07:59
[2020-11-13] MEDS: LACTOBACILLUS RHAMNOSUS GG 1 CAPSULE. PO SCH ×2 (09:13→20:19)
[2020-11-13] MEDS: ASPIRIN ENTERIC COATED 81 MG TABLET.DR. PO SCH (09:13)
[2020-11-13] MEDS: SIMVASTATIN 40 MG TABLET. PO SCH (09:13)
[2020-11-13] MEDS: METOPROLOL TART IMMED RELEASE 25 MG TABLET. PO SCH ×2 (09:14→20:20)
[2020-11-13] MEDS: INSULIN LISPRO 300 UNITS/3 ML VIAL. SQ SCH ×4 (09:15→20:27)
[2020-11-13] MEDS: IV NORMAL SALINE 1000ML BAG 1,000 ML IV SCH ×2 (09:17→22:52)
[2020-11-13] MEDS: oxyCODONE/APAP 5/325 1 TAB TABLET PO PRN ×3 (10:01→18:15)
[2020-11-13 11:00] VITALS: BP 138/65
[2020-11-13 15:00] VITALS: BP 132/57
[2020-11-13 19:00] VITALS: BP 137/54
--- NOTE | 2020-11-13 20:20 | PDOC ---
[facility] PROGRESS NOTE Date of Service DOS: DATE: 11/13/20 TIME: 20:17 Chief Complaint Chief Complaint A/P: Epigastric abdominal pain - seems to be acute Cholecystitis, but concerning for possible prior findings. May also be Hypokalemia - will replace, check mag RODRIGUE - vasomotor nephropathy, will hydrate gently, monitor renal function Chest pain - likely GERD vs gastritis vs PUD, however with his CAD history will trend troponins, ask cardiology to see Transaminitis - likely from gallbladder disease vs possible COVID 19, though he denies exposure Elevated troponin - likely demand ischemia, will trend. cardiology consulted DM2 - with hyperglycemia - will keep Npo, sliding scale Anemia - likely of chronic disease CAD s/p CABG x4 2016 - has outpatient f/u, taking meds Abnormal CXR - will treat as pneumonia, likely gram negative given his age and risk factors. Will f/u COVID 19 results FEN - NPO PPX - SCDs FULL CODE Dispo - inpatient for above History of Present Illness History of Present Illness Mr Franco is a 75 year old male with history of hypertension, diabetes, coronary disease status post CABG x4 who presents to the ED with his daughter with epigastric pain and chest pain as well as right flank pain. Pain is epigastric and substernal, sharp, intermittent, 7/10 with occasional radiation to right flank, though it is not currently radiating. Food does not affect his pain. No recent sick contacts. He does have some shortness of breath that is intermittent. No cough. Occasional chills. He was seen in the emergency department on Sunday, November 06 for flank pain. Nothing makes it better or worse. He reports that he had a decrease in appetite . He said some nausea without vomiting. Patient denies diarrhea, no fevers, no syncope headache neck pain. He has had some intermittent chills. Patient is not a smoker. Denies daily drugs or alcohol. Patient is accompanied by family member who helps with history. EKG appears normal sinus rhythm with ventricular rate of 74 bpm. NC interval 194 ms. QRS duration 96 ms. QTc 460 ms. PAC noted. No acute ST segment elevations. Chest radiograph with suspected focal right upper lobe interstitial infiltrate or scarring. RUQ US with debris within the gallbladder with gallbladder wall thickening and pericholecystic edema. Echogenic liver. Labs significant for WBC 10.8 with left shift, Hb 12.4, platelets 228, NA 134, K2.9, BUN 23, CR 1.8, glucose 191, albumin 2.5, alk phos 221, ALT 154, AST 100, bilirubin 1.2, lipase 69, BNP 998, troponin 0 0.022 x 2 Admitted for further care. 11/12: Patient seen and evaluated, s/p laparoscopic cholecystectomy. Patient was febrile overnight. Reports some incisional tenderness. Chest x-ray on admission showed suspected focal right upper lobe interstitial infiltrate or scarring. COVID-19 and influenza pending. 11/13: Patient flu and COVID-19 negative. S/p laparoscopic cholecystectomy, cleared by general surgery to discharge. And follow-up with Dr. Beckford in 2 weeks. Patient became hypoxic this afternoon, requiring 1-2 L nasal cannula. Suspect postsurgical atelectasis. Will obtain CXR. If still hypoxic tomorrow morning will obtain 6-minute walk to evaluate for O2. Vitals/I&O Vitals/I&O: Vital Signs Date Time Temp Pulse Resp B/P (MAP) Pulse Ox O2 Delivery O2 Flow Rate FiO2 11/13/20 18:15 17 Nasal Cannula 2.0 11/13/20 15:00 97.3 65 132/57 (82) 92 97.3 I & O 11/12/20 11/12/20 11/13/20 15:00 23:00 07:00 Intake Total 1250 ml 240 ml Output Total 210 ml 100 ml 450 ml Balance 1040 ml -100 ml -210 ml Physical Exam General: Alert, Oriented X3, Cooperative, mild distress Heart: Regular rate, No murmurs Lungs: Clear Abdomen: Normal bowel sounds, Soft, Other (Mild incisional tenderness wounds clean dry and intact) Extremities: No edema Skin: No significant lesion Labs Labs: Laboratory Tests Test 11/12/20 20:36 11/13/20 03:30 11/13/20 11:54 11/13/20 14:51 Glucose (Fingerstick) 303 mg/dL (70-99) 287 mg/dL (70-99) 258 mg/dL (70-99) White Blood Count 9.2 x10^3/uL (4.0-11.0) Red Blood Count 3.50 x10^6/uL (4.30-5.70) Hemoglobin 10.8 g/dL (13.0-17.5) Hematocrit 32.5 % (39.0-53.0) Mean Corpuscular Volume 93 fL (79-100) Mean Corpuscular Hemoglobin 31 pg (25-35) Mean Corpuscular Hemoglobin Concent 33 g/dL (31-37) Red Cell Distribution Width 14.7 % (11.5-14.5) Platelet Count 250 x10^3/uL (140-400) Neutrophils (%) (Auto) 82 % (31-73) Lymphocytes (%) (Auto) 10 % (24-48) Monocytes (%) (Auto) 8 % (0-9) Eosinophils (%) (Auto) 0 % (0-3) Basophils (%) (Auto) 0 % (0-3) Neutrophils # (Auto) 7.5 x10^3/uL (1.8-7.7) Lymphocytes # (Auto) 0.9 x10^3/uL (1.0-4.8) Monocytes # (Auto) 0.7 x10^3/uL (0.0-1.1) Eosinophils # (Auto) 0.0 x10^3/uL (0.0-0.7) Basophils # (Auto) 0.0 x10^3/uL (0.0-0.2) Sodium Level 138 mmol/L (136-145) Potassium Level 4.3 mmol/L (3.5-5.1) Chloride Level 105 mmol/L (98-107) Carbon Dioxide Level 22 mmol/L (21-32) Anion Gap 11 (6-14) Blood Urea Nitrogen 23 mg/dL (8-26) Creatinine 1.8 mg/dL (0.7-1.3) Estimated GFR (Cockcroft-Gault) 36.8 Glucose Level 326 mg/dL (70-99) Calcium Level 7.6 mg/dL (8.5-10.1) Test 11/13/20 16:41 Glucose (Fingerstick) 372 mg/dL (70-99) Assessment and Plan Assessmemt and Plan Problems Medical Problems: (1) Abdominal pain Status: Acute (2) Cholecystitis Status: Acute (3) Hypokalemia Status: Acute (4) Transaminitis Status: Acute Comment Review of Relevant I have reviewed the following items gutierrez (where applicable) has been applied. Medications: Current Medications Medications (Trade) Dose Ordered Sig/Raul Route PRN Reason Start Time Stop Time Status Last Admin Dose Admin Lactobacillus Rhamnosus (Culturelle) 1 cap BID PO 11/12/20 21:00 11/13/20 09:13 Metoprolol Tartrate (Lopressor) 25 mg BID PO 11/12/20 21:00 11/13/20 09:14 Simvastatin (Zocor) 40 mg DAILY PO 11/13/20 09:00 11/13/20 09:13 Aspirin (Ecotrin) 81 mg DAILYWBKFT PO 11/13/20 08:00 11/13/20 09:13 Insulin Human Lispro (HumaLOG) 0-9 UNITS QIDACHS SQ 11/12/20 21:00 11/13/20 17:39 Justifications for Admission Other Justification HARISH QUESADA MD Nov 13, 2020 20:20
[2020-11-13 23:00] VITALS: BP 156/69
[2020-11-14 03:00] VITALS: BP 154/66
[2020-11-14] MEDS: PIPERACILLIN/TAZOBACTAM 2.25 GM in IV NORMAL SALINE 50ML 50 ML IV SCH (05:02)
[2020-11-14 05:38] LABS: BASO % 1 % (0-3); EOS # 0.3 x10^3/uL (0.0-0.7); EOS % 3 % (0-3); HEMATOCRIT 34.6 % (39.0-53.0); HEMOGLOBIN 11.4 g/dL (13.0-17.5); LYMPH # 1.6 x10^3/uL (1.0-4.8); LYMPH % 18 % (24-48); MEAN CORPUSCULAR HEMOGLOBIN 31 pg (25-35); MEAN CORPUSCULAR HGB CONC 33 g/dL (31-37); MEAN CORPUSCULAR VOLUME 93 fL (79-100); MONO # 0.6 x10^3/uL (0.0-1.1); MONO % 7 % (0-9); NEUT # 6.4 x10^3/uL (1.8-7.7); NEUT % 72 % (31-73); PLATELET COUNT 286 x10^3/uL (140-400); RED BLOOD COUNT 3.71 x10^6/uL (4.30-5.70); RED CELL DISTRIBUTION WIDTH 14.6 % (11.5-14.5); WHITE BLOOD COUNT 8.9 x10^3/uL (4.0-11.0)
[2020-11-14 05:48] LABS: CALCIUM 8.2 mg/dL (8.5-10.1); CREATININE 1.3 mg/dL (0.7-1.3); GFR 53.5; POTASSIUM 4.1 mmol/L (3.5-5.1)
[2020-11-14 07:00] VITALS: BP 173/72
--- NOTE | 2020-11-14 07:32 | RAD ---
XR CHEST 1V History: Reason: Shortness of breath 664 / Spl. Instructions: / History: Comparison: November 11, 2020 Findings: Low lung volumes. Increased patchy bibasilar opacities. Prior mid sternotomy. Unchanged in size. No p leural effusion. No pneumothorax. Impression: 1. Low lung volumes with increased patchy bibasilar opacities, may represent atelectasis or developi ng consolidations. Electronically signed by: Baudilio Bueno DO (11/14/2020 7:30 AM) [id number]
[2020-11-14] MEDS: LACTOBACILLUS RHAMNOSUS GG 1 CAPSULE. PO SCH (08:06)
[2020-11-14] MEDS: oxyCODONE/APAP 5/325 1 TAB TABLET PO PRN ×2 (08:07→11:55)
[2020-11-14] MEDS: ASPIRIN ENTERIC COATED 81 MG TABLET.DR. PO SCH (08:07)
[2020-11-14 08:08] VITALS: BP 154/66
[2020-11-14] MEDS: SIMVASTATIN 40 MG TABLET. PO SCH (08:08)
[2020-11-14] MEDS: METOPROLOL TART IMMED RELEASE 25 MG TABLET. PO SCH (08:08)
[2020-11-14] MEDS: INSULIN LISPRO 300 UNITS/3 ML VIAL. SQ SCH (08:22)
--- NOTE | 2020-11-14 08:31 | PDOC ---
SURGICAL PROGRESS NOTE DATE: 11/14/20 TIME: 08:30 Subjective Patient doing well no complaints tolerating diet Vital Signs Vital Signs Date Time Temp Pulse Resp B/P (MAP) Pulse Ox O2 Delivery O2 Flow Rate FiO2 11/14/20 08:08 65 154/66 11/14/20 08:07 17 Nasal Cannula 1.0 11/14/20 03:00 97.4 97 97.4 I&O Intake and Output 11/14/20 07:00 Intake Total 1100 ml Output Total 1650 ml Balance -550 ml Intake Oral 1100 ml Output Urine Total 1650 ml PATIENT HAS A FLOOD: No General: Alert, Oriented X3, Cooperative, mild distress Abdomen: Normal bowel sounds, Soft, Other (Mild incisional tenderness wounds clean dry and intact) Labs Laboratory Tests Test 11/12/20 08:39 11/12/20 10:54 11/12/20 16:09 11/12/20 20:36 Glucose (Fingerstick) 107 mg/dL (70-99) 159 mg/dL (70-99) 325 mg/dL (70-99) 303 mg/dL (70-99) Test 11/13/20 03:30 11/13/20 11:54 11/13/20 14:51 11/13/20 16:41 White Blood Count 9.2 x10^3/uL (4.0-11.0) Red Blood Count 3.50 x10^6/uL (4.30-5.70) Hemoglobin 10.8 g/dL (13.0-17.5) Hematocrit 32.5 % (39.0-53.0) Mean Corpuscular Volume 93 fL (79-100) Mean Corpuscular Hemoglobin 31 pg (25-35) Mean Corpuscular Hemoglobin Concent 33 g/dL (31-37) Red Cell Distribution Width 14.7 % (11.5-14.5) Platelet Count 250 x10^3/uL (140-400) Neutrophils (%) (Auto) 82 % (31-73) Lymphocytes (%) (Auto) 10 % (24-48) Monocytes (%) (Auto) 8 % (0-9) Eosinophils (%) (Auto) 0 % (0-3) Basophils (%) (Auto) 0 % (0-3) Neutrophils # (Auto) 7.5 x10^3/uL (1.8-7.7) Lymphocytes # (Auto) 0.9 x10^3/uL (1.0-4.8) Monocytes # (Auto) 0.7 x10^3/uL (0.0-1.1) Eosinophils # (Auto) 0.0 x10^3/uL (0.0-0.7) Basophils # (Auto) 0.0 x10^3/uL (0.0-0.2) Sodium Level 138 mmol/L (136-145) Potassium Level 4.3 mmol/L (3.5-5.1) Chloride Level 105 mmol/L (98-107) Carbon Dioxide Level 22 mmol/L (21-32) Anion Gap 11 (6-14) Blood Urea Nitrogen 23 mg/dL (8-26) Creatinine 1.8 mg/dL (0.7-1.3) Estimated GFR (Cockcroft-Gault) 36.8 Glucose Level 326 mg/dL (70-99) Calcium Level 7.6 mg/dL (8.5-10.1) Glucose (Fingerstick) 287 mg/dL (70-99) 258 mg/dL (70-99) 372 mg/dL (70-99) Test 11/14/20 05:00 11/14/20 08:10 White Blood Count 8.9 x10^3/uL (4.0-11.0) Red Blood Count 3.71 x10^6/uL (4.30-5.70) Hemoglobin 11.4 g/dL (13.0-17.5) Hematocrit 34.6 % (39.0-53.0) Mean Corpuscular Volume 93 fL (79-100) Mean Corpuscular Hemoglobin 31 pg (25-35) Mean Corpuscular Hemoglobin Concent 33 g/dL (31-37) Red Cell Distribution Width 14.6 % (11.5-14.5) Platelet Count 286 x10^3/uL (140-400) Neutrophils (%) (Auto) 72 % (31-73) Lymphocytes (%) (Auto) 18 % (24-48) Monocytes (%) (Auto) 7 % (0-9) Eosinophils (%) (Auto) 3 % (0-3) Basophils (%) (Auto) 1 % (0-3) Neutrophils # (Auto) 6.4 x10^3/uL (1.8-7.7) Lymphocytes # (Auto) 1.6 x10^3/uL (1.0-4.8) Monocytes # (Auto) 0.6 x10^3/uL (0.0-1.1) Eosinophils # (Auto) 0.3 x10^3/uL (0.0-0.7) Basophils # (Auto) 0.0 x10^3/uL (0.0-0.2) Sodium Level 141 mmol/L (136-145) Potassium Level 4.1 mmol/L (3.5-5.1) Chloride Level 108 mmol/L (98-107) Carbon Dioxide Level 24 mmol/L (21-32) Anion Gap 9 (6-14) Blood Urea Nitrogen 16 mg/dL (8-26) Creatinine 1.3 mg/dL (0.7-1.3) Estimated GFR (Cockcroft-Gault) 53.5 Glucose Level 202 mg/dL (70-99) Calcium Level 8.2 mg/dL (8.5-10.1) Glucose (Fingerstick) 226 mg/dL (70-99) Laboratory Tests Test 11/13/20 11:54 11/13/20 14:51 11/13/20 16:41 11/14/20 05:00 Glucose (Fingerstick) 287 mg/dL (70-99) 258 mg/dL (70-99) 372 mg/dL (70-99) White Blood Count 8.9 x10^3/uL (4.0-11.0) Red Blood Count 3.71 x10^6/uL (4.30-5.70) Hemoglobin 11.4 g/dL (13.0-17.5) Hematocrit 34.6 % (39.0-53.0) Mean Corpuscular Volume 93 fL (79-100) Mean Corpuscular Hemoglobin 31 pg (25-35) Mean Corpuscular Hemoglobin Concent 33 g/dL (31-37) Red Cell Distribution Width 14.6 % (11.5-14.5) Platelet Count 286 x10^3/uL (140-400) Neutrophils (%) (Auto) 72 % (31-73) Lymphocytes (%) (Auto) 18 % (24-48) Monocytes (%) (Auto) 7 % (0-9) Eosinophils (%) (Auto) 3 % (0-3) Basophils (%) (Auto) 1 % (0-3) Neutrophils # (Auto) 6.4 x10^3/uL (1.8-7.7) Lymphocytes # (Auto) 1.6 x10^3/uL (1.0-4.8) Monocytes # (Auto) 0.6 x10^3/uL (0.0-1.1) Eosinophils # (Auto) 0.3 x10^3/uL (0.0-0.7) Basophils # (Auto) 0.0 x10^3/uL (0.0-0.2) Sodium Level 141 mmol/L (136-145) Potassium Level 4.1 mmol/L (3.5-5.1) Chloride Level 108 mmol/L (98-107) Carbon Dioxide Level 24 mmol/L (21-32) Anion Gap 9 (6-14) Blood Urea Nitrogen 16 mg/dL (8-26) Creatinine 1.3 mg/dL (0.7-1.3) Estimated GFR (Cockcroft-Gault) 53.5 Glucose Level 202 mg/dL (70-99) Calcium Level 8.2 mg/dL (8.5-10.1) Test 11/14/20 08:10 Glucose (Fingerstick) 226 mg/dL (70-99) Problem List Problems Medical Problems: (1) Abdominal pain Status: Acute (2) Cholecystitis Status: Acute (3) Hypokalemia Status: Acute (4) Transaminitis Status: Acute Assessment/Plan Status post laparoscopic cholecystectomy White count normal tolerating diet Stable from surgical standpoint Follow-up Dr. Garcia in 2 weeks low-fat diet for 2 weeks no lifting more than 20 pounds for 2 weeks Justicifation of Admission Dx: Justifications for Admission: Justification of Admission Dx: Yes GARRET GARCIA MD Nov 14, 2020 08:31
--- NOTE | 2020-11-14 09:26 | PDOC ---
[employer] PROGRESS NOTE Date of Service DOS: DATE: 11/14/20 TIME: 09:25 Chief Complaint Chief Complaint A/P: Epigastric abdominal pain - seems to be acute Cholecystitis, but concerning for possible prior findings. May also be Hypokalemia - will replace, check mag RODRIGUE - vasomotor nephropathy, will hydrate gently, monitor renal function Chest pain - likely GERD vs gastritis vs PUD, however with his CAD history will trend troponins, ask cardiology to see Transaminitis - likely from gallbladder disease vs possible COVID 19, though he denies exposure Elevated troponin - likely demand ischemia, will trend. cardiology consulted DM2 - with hyperglycemia - will keep Npo, sliding scale Anemia - likely of chronic disease CAD s/p CABG x4 2016 - has outpatient f/u, taking meds Abnormal CXR - will treat as pneumonia, likely gram negative given his age and risk factors. Will f/u COVID 19 results FEN - NPO PPX - SCDs FULL CODE Dispo - inpatient for above History of Present Illness History of Present Illness Mr Franco is a 75 year old male with history of hypertension, diabetes, coronary disease status post CABG x4 who presents to the ED with his daughter with epigastric pain and chest pain as well as right flank pain. Pain is epigastric and substernal, sharp, intermittent, 7/10 with occasional radiation to right flank, though it is not currently radiating. Food does not affect his pain. No recent sick contacts. He does have some shortness of breath that is intermittent. No cough. Occasional chills. He was seen in the emergency department on Sunday, November 06 for flank pain. Nothing makes it better or worse. He reports that he had a decrease in appetite . He said some nausea without vomiting. Patient denies diarrhea, no fevers, no syncope headache neck pain. He has had some intermittent chills. Patient is not a smoker. Denies daily drugs or alcohol. Patient is accompanied by family member who helps with history. EKG appears normal sinus rhythm with ventricular rate of 74 bpm. MO interval 194 ms. QRS duration 96 ms. QTc 460 ms. PAC noted. No acute ST segment elevations. Chest radiograph with suspected focal right upper lobe interstitial infiltrate or scarring. RUQ US with debris within the gallbladder with gallbladder wall thickening and pericholecystic edema. Echogenic liver. Labs significant for WBC 10.8 with left shift, Hb 12.4, platelets 228, NA 134, K2.9, BUN 23, CR 1.8, glucose 191, albumin 2.5, alk phos 221, ALT 154, AST 100, bilirubin 1.2, lipase 69, BNP 998, troponin 0 0.022 x 2 Admitted for further care. 11/12: Patient seen and evaluated, s/p laparoscopic cholecystectomy. Patient was febrile overnight. Reports some incisional tenderness. Chest x-ray on admission showed suspected focal right upper lobe interstitial infiltrate or scarring. COVID-19 and influenza pending. 11/13: Patient flu and COVID-19 negative. S/p laparoscopic cholecystectomy, cleared by general surgery to discharge. And follow-up with Dr. Beckford in 2 weeks. Patient became hypoxic this afternoon, requiring 1-2 L nasal cannula. Suspect postsurgical atelectasis. Will obtain CXR. If still hypoxic tomorrow morning will obtain 6-minute walk to evaluate for O2. 11/14: He has been cleared by surgery to discharge. He is breathing comfortably on room air. Will discharge with short course of Percocet. Follow-up with surgery and 2 weeks. Greater than 30 minutes was spent managing the discharge this patient. Vitals/I&O Vitals/I&O: Vital Signs Date Time Temp Pulse Resp B/P (MAP) Pulse Ox O2 Delivery O2 Flow Rate FiO2 11/14/20 08:08 65 154/66 11/14/20 08:07 17 Nasal Cannula 1.0 11/14/20 07:00 96.2 95 96.2 I & O 11/13/20 11/13/20 11/14/20 15:00 23:00 07:00 Intake Total 900 ml 200 ml Output Total 600 ml 1050 ml Balance 300 ml -850 ml Physical Exam General: Alert, Oriented X3, Cooperative, mild distress Heart: Regular rate, No murmurs Lungs: Clear Abdomen: Normal bowel sounds, Soft, Other (Mild incisional tenderness wounds clean dry and intact) Extremities: No edema Skin: No significant lesion Labs Labs: Laboratory Tests Test 11/13/20 11:54 11/13/20 14:51 11/13/20 16:41 11/14/20 05:00 Glucose (Fingerstick) 287 mg/dL (70-99) 258 mg/dL (70-99) 372 mg/dL (70-99) White Blood Count 8.9 x10^3/uL (4.0-11.0) Red Blood Count 3.71 x10^6/uL (4.30-5.70) Hemoglobin 11.4 g/dL (13.0-17.5) Hematocrit 34.6 % (39.0-53.0) Mean Corpuscular Volume 93 fL (79-100) Mean Corpuscular Hemoglobin 31 pg (25-35) Mean Corpuscular Hemoglobin Concent 33 g/dL (31-37) Red Cell Distribution Width 14.6 % (11.5-14.5) Platelet Count 286 x10^3/uL (140-400) Neutrophils (%) (Auto) 72 % (31-73) Lymphocytes (%) (Auto) 18 % (24-48) Monocytes (%) (Auto) 7 % (0-9) Eosinophils (%) (Auto) 3 % (0-3) Basophils (%) (Auto) 1 % (0-3) Neutrophils # (Auto) 6.4 x10^3/uL (1.8-7.7) Lymphocytes # (Auto) 1.6 x10^3/uL (1.0-4.8) Monocytes # (Auto) 0.6 x10^3/uL (0.0-1.1) Eosinophils # (Auto) 0.3 x10^3/uL (0.0-0.7) Basophils # (Auto) 0.0 x10^3/uL (0.0-0.2) Sodium Level 141 mmol/L (136-145) Potassium Level 4.1 mmol/L (3.5-5.1) Chloride Level 108 mmol/L (98-107) Carbon Dioxide Level 24 mmol/L (21-32) Anion Gap 9 (6-14) Blood Urea Nitrogen 16 mg/dL (8-26) Creatinine 1.3 mg/dL (0.7-1.3) Estimated GFR (Cockcroft-Gault) 53.5 Glucose Level 202 mg/dL (70-99) Calcium Level 8.2 mg/dL (8.5-10.1) Test 11/14/20 08:10 Glucose (Fingerstick) 226 mg/dL (70-99) Assessment and Plan Assessmemt and Plan Problems Medical Problems: (1) Abdominal pain Status: Acute (2) Cholecystitis Status: Acute (3) Hypokalemia Status: Acute (4) Transaminitis Status: Acute Comment Review of Relevant I have reviewed the following items gutierrez (where applicable) has been applied. Justifications for Admission Other Justification HARISH QUESADA MD Nov 14, 2020 09:26
--- NOTE | 2020-11-14 10:07 | PDOC3 ---
Discharge Summary Visit Information Date of Admission: Nov 11, 2020 Date of Discharge: Nov 14, 2020 Final Diagnosis Problems Medical Problems: (1) Abdominal pain Status: Acute (2) Cholecystitis Status: Acute (3) Hypokalemia Status: Acute (4) Transaminitis Status: Acute Brief Hospital Course Allergies Allergies Coded Allergies Type Severity Reaction Last Updated Verified No Known Drug Allergies 03/14/17 No Vital Signs Vital Signs Date Time Temp Pulse Resp B/P (MAP) Pulse Ox O2 Delivery O2 Flow Rate FiO2 11/14/20 08:08 65 154/66 11/14/20 08:07 17 Nasal Cannula 1.0 11/14/20 07:00 96.2 95 96.2 Lab Results Laboratory Tests Test 11/12/20 10:54 11/12/20 16:09 11/12/20 20:36 11/13/20 03:30 Glucose (Fingerstick) 159 mg/dL (70-99) 325 mg/dL (70-99) 303 mg/dL (70-99) White Blood Count 9.2 x10^3/uL (4.0-11.0) Red Blood Count 3.50 x10^6/uL (4.30-5.70) Hemoglobin 10.8 g/dL (13.0-17.5) Hematocrit 32.5 % (39.0-53.0) Mean Corpuscular Volume 93 fL (79-100) Mean Corpuscular Hemoglobin 31 pg (25-35) Mean Corpuscular Hemoglobin Concent 33 g/dL (31-37) Red Cell Distribution Width 14.7 % (11.5-14.5) Platelet Count 250 x10^3/uL (140-400) Neutrophils (%) (Auto) 82 % (31-73) Lymphocytes (%) (Auto) 10 % (24-48) Monocytes (%) (Auto) 8 % (0-9) Eosinophils (%) (Auto) 0 % (0-3) Basophils (%) (Auto) 0 % (0-3) Neutrophils # (Auto) 7.5 x10^3/uL (1.8-7.7) Lymphocytes # (Auto) 0.9 x10^3/uL (1.0-4.8) Monocytes # (Auto) 0.7 x10^3/uL (0.0-1.1) Eosinophils # (Auto) 0.0 x10^3/uL (0.0-0.7) Basophils # (Auto) 0.0 x10^3/uL (0.0-0.2) Sodium Level 138 mmol/L (136-145) Potassium Level 4.3 mmol/L (3.5-5.1) Chloride Level 105 mmol/L (98-107) Carbon Dioxide Level 22 mmol/L (21-32) Anion Gap 11 (6-14) Blood Urea Nitrogen 23 mg/dL (8-26) Creatinine 1.8 mg/dL (0.7-1.3) Estimated GFR (Cockcroft-Gault) 36.8 Glucose Level 326 mg/dL (70-99) Calcium Level 7.6 mg/dL (8.5-10.1) Test 11/13/20 11:54 11/13/20 14:51 11/13/20 16:41 11/14/20 05:00 Glucose (Fingerstick) 287 mg/dL (70-99) 258 mg/dL (70-99) 372 mg/dL (70-99) White Blood Count 8.9 x10^3/uL (4.0-11.0) Red Blood Count 3.71 x10^6/uL (4.30-5.70) Hemoglobin 11.4 g/dL (13.0-17.5) Hematocrit 34.6 % (39.0-53.0) Mean Corpuscular Volume 93 fL (79-100) Mean Corpuscular Hemoglobin 31 pg (25-35) Mean Corpuscular Hemoglobin Concent 33 g/dL (31-37) Red Cell Distribution Width 14.6 % (11.5-14.5) Platelet Count 286 x10^3/uL (140-400) Neutrophils (%) (Auto) 72 % (31-73) Lymphocytes (%) (Auto) 18 % (24-48) Monocytes (%) (Auto) 7 % (0-9) Eosinophils (%) (Auto) 3 % (0-3) Basophils (%) (Auto) 1 % (0-3) Neutrophils # (Auto) 6.4 x10^3/uL (1.8-7.7) Lymphocytes # (Auto) 1.6 x10^3/uL (1.0-4.8) Monocytes # (Auto) 0.6 x10^3/uL (0.0-1.1) Eosinophils # (Auto) 0.3 x10^3/uL (0.0-0.7) Basophils # (Auto) 0.0 x10^3/uL (0.0-0.2) Sodium Level 141 mmol/L (136-145) Potassium Level 4.1 mmol/L (3.5-5.1) Chloride Level 108 mmol/L (98-107) Carbon Dioxide Level 24 mmol/L (21-32) Anion Gap 9 (6-14) Blood Urea Nitrogen 16 mg/dL (8-26) Creatinine 1.3 mg/dL (0.7-1.3) Estimated GFR (Cockcroft-Gault) 53.5 Glucose Level 202 mg/dL (70-99) Calcium Level 8.2 mg/dL (8.5-10.1) Test 11/14/20 08:10 Glucose (Fingerstick) 226 mg/dL (70-99) Laboratory Tests Test 11/13/20 11:54 11/13/20 14:51 11/13/20 16:41 11/14/20 05:00 Glucose (Fingerstick) 287 mg/dL (70-99) 258 mg/dL (70-99) 372 mg/dL (70-99) White Blood Count 8.9 x10^3/uL (4.0-11.0) Red Blood Count 3.71 x10^6/uL (4.30-5.70) Hemoglobin 11.4 g/dL (13.0-17.5) Hematocrit 34.6 % (39.0-53.0) Mean Corpuscular Volume 93 fL (79-100) Mean Corpuscular Hemoglobin 31 pg (25-35) Mean Corpuscular Hemoglobin Concent 33 g/dL (31-37) Red Cell Distribution Width 14.6 % (11.5-14.5) Platelet Count 286 x10^3/uL (140-400) Neutrophils (%) (Auto) 72 % (31-73) Lymphocytes (%) (Auto) 18 % (24-48) Monocytes (%) (Auto) 7 % (0-9) Eosinophils (%) (Auto) 3 % (0-3) Basophils (%) (Auto) 1 % (0-3) Neutrophils # (Auto) 6.4 x10^3/uL (1.8-7.7) Lymphocytes # (Auto) 1.6 x10^3/uL (1.0-4.8) Monocytes # (Auto) 0.6 x10^3/uL (0.0-1.1) Eosinophils # (Auto) 0.3 x10^3/uL (0.0-0.7) Basophils # (Auto) 0.0 x10^3/uL (0.0-0.2) Sodium Level 141 mmol/L (136-145) Potassium Level 4.1 mmol/L (3.5-5.1) Chloride Level 108 mmol/L (98-107) Carbon Dioxide Level 24 mmol/L (21-32) Anion Gap 9 (6-14) Blood Urea Nitrogen 16 mg/dL (8-26) Creatinine 1.3 mg/dL (0.7-1.3) Estimated GFR (Cockcroft-Gault) 53.5 Glucose Level 202 mg/dL (70-99) Calcium Level 8.2 mg/dL (8.5-10.1) Test 11/14/20 08:10 Glucose (Fingerstick) 226 mg/dL (70-99) Brief Hospital Course Mr. Franco is a 75 old male who presented with cholecystitis. Consultation was placed to general surgery. He had laparoscopic surgery on 11/12. Discharge was held up by brief period of post-op hypoxia. Will discharge patient with short course of Percocet. Follow-up with general surgery in 2 weeks. Discharge Information Condition at Discharge: Improved Follow Up: Weeks Disposition/Orders: D/C to Home Scheduled Aspirin/Calcium Carbonate/Mag (Aspirin Buffered 325 Mg Tab) 325 Mg Tablet, 325 MG PO DAILY, (Reported) Entered as Reported by: GARRET CHAVIS on 11/24/15 1244 Cyclobenzaprine Hcl (Cyclobenzaprine Hcl) 10 Mg Tablet, 1 TAB PO TID, #21 Prescribed by: EFRA CHESTER MD on 11/07/20 1228 Insulin Aspart (Novolog Flexpen) 100 Unit/1 Ml Insuln.pen, 18 UNIT SQ BEFORE DINNER, #5 Ref 1 Prescribed by: SP DANGELO on 11/24/15 0929 Insulin Detemir (Levemir Flextouch) 100 Unit/1 Ml Insuln.pen, 50 UNITS SQ QHS, #3 Ref 6 Prescribed by: SP DANGELO on 11/24/15928 Lisinopril (Lisinopril) 5 Mg Tablet, 5 MG PO DAILY, #30 Ref 6 Prescribed by: SP DANGELO on 11/24/15928 Metformin Hcl (Metformin Hcl) 1,000 Mg Tablet, 1,000 MG PO DAILYWBKFT for ANTI- DIABETIC, Ref 0 (Reported) Entered as Reported by: LIGIA NIEVES on 04/09/141457 Metoprolol Tartrate (Metoprolol Tartrate) 25 Mg Tablet, 25 MG PO BID, #60 Ref 6 Prescribed by: SP DANGELO on 11/24/15928 Last Action: Continued on 11/12/200 by JANET LUCERO Pantoprazole Sodium (Pantoprazole Sodium ) 40 Mg Tablet.dr, 40 MG PO DAILYAC, #30 Ref 0 Prescribed by: SP DANGELO on 11/24/15928 Simvastatin (Simvastatin) 40 Mg Tablet, 40 MG PO DAILY for FOR CHOLESTEROL, #30 Ref 0 (Reported) Entered as Reported by: LIGIA NIEVES on 04/09/147 Last Action: Continued on 11/12/201449 by JANET LUCERO Discontinued Medications Hydrocodone/Apap 5-325 (Lewis 5-325 Tablet) 1 Each Tablet, 1 TAB PO BID, #60 Prescribed by: SP DANGELO on 11/24/15928 Hydrocodone/Apap 5-325 (Lewis 5-325 Tablet) 1 Each Tablet, 1 TAB PO PRN Q6HRS PRN for PAIN, #14 Ref 0 Prescribed by: MATILDE CHURCHILL, DIOGO on 06/15/182021 Justicifation of Admission Dx: Justifications for Admission: Justification of Admission Dx: Yes HARISH QUESADA MD Nov 14, 2020 10:07
--- NOTE | 2020-11-14 12:05 | NUR ---
Pt discharged to home with girlfriend. Discharge instructions reviewed with Grace as well as the pt. Verbalized understanding.
== END 2020-11-14 12:05 | disposition home or self-care (01) | DRG 417 ==
LOC: ER 09:44 → 6 SOUTH 14:00
PROVIDERS: ADMIT Internal Medicine; ATTEND Internal Medicine
PROC: 0FT44ZZ Resection of Gallbladder, Percutaneous Endoscopic Approach (ICD-10-PCS; principal; 2020-11-12 07:30)
DX: K81.0 Acute cholecystitis (principal); N17.0 Acute kidney failure with tubular necrosis; J18.9 Pneumonia, unspecified organism; I24.8 Other forms of acute ischemic heart disease; I25.10 Atherosclerotic heart disease of native coronary artery without angina pectoris; N18.2 Chronic kidney disease, stage 2 (mild); E11.22 Type 2 diabetes mellitus with diabetic chronic kidney disease; I12.9 Hypertensive chronic kidney disease with stage 1 through stage 4 chronic kidney disease, or unspecified chronic kidney disease; E11.65 Type 2 diabetes mellitus with hyperglycemia; E87.6 Hypokalemia; E78.1 Pure hyperglyceridemia; E78.5 Hyperlipidemia, unspecified; D63.8 Anemia in other chronic diseases classified elsewhere; E78.00 Pure hypercholesterolemia, unspecified; K82.8 Other specified diseases of gallbladder; N40.0 Benign prostatic hyperplasia without lower urinary tract symptoms; R09.02 Hypoxemia; Z20.822 Contact with and (suspected) exposure to COVID-19; Z82.49 Family history of ischemic heart disease and other diseases of the circulatory system; Z95.1 Presence of aortocoronary bypass graft; D64.9 Anemia, unspecified; K21.9 Gastro-esophageal reflux disease without esophagitis; M19.90 Unspecified osteoarthritis, unspecified site; R74.01 Elevation of levels of liver transaminase levels
CPT/HCPCS: 36415; 71045; 76705; 80048; 80053; 80061; 81001; 82962; 83690; 83735; 83880; 84484; 85025; 85610; 87426; 93005; 96361; 96365; J0456; J0696; J1100; J1815; J2270; J2405; J2543; J2704; J2710; J3480; J3490; J7030; Q9967; U0003; 99285-25; G0378

== ENCOUNTER → 2021-03-18 | Outpatient (CLI) | payer BC ==
[~2021-03-18] MED LIST changes: -LISI-338 PO; +LISI-517 PO; +LISI10TA16 PO; -LISI10TA2 PO
[2021-03-18] MEDS: IOHEXOL 240 MG/ML 50ML VIAL. PO ONE (11:07)
[2021-03-18] MEDS: IOHEXOL 300 MG/ML 100ML VIAL. IV ONE (11:07)
--- NOTE | 2021-03-18 13:18 | KCIC ---
EXAM: Abdomen and pelvis CT with intravenous contrast. HISTORY: Pain. TECHNIQUE: Computed tomographic images of the abdomen and pelvis were obtained following the administ ration of intravenous contrast. Multiplanar reformatting was performed. *One or more of the following individualized dose reduction techniques were utilized for this examina tion: 1. Automated exposure control. 2. Adjustment of the mA and/or kV according to patient size. 3. Use of iterative reconstruction technique. COMPARISON: None. FINDINGS: Evaluation of the lower thorax demonstrates cardiomegaly. There aren't median sternotomy ch anges due to coronary bypass grafting. There is posterior dependent and basilar atelectasis. There is a calcified granuloma within the left lower lobe. There is hepatic steatosis. The gallbladder is absent. The pancreas, spleen and adrenal glands are un remarkable. There is no suspicious renal lesion or hydronephrosis. There is no appendicitis. There is no bowel obstruction. There is mild wall thickening involving the transverse colon. There is moderate colonic stool. There is distal colonic diverticulosis. There is n o diverticulitis. The prostate is mildly enlarged. The bladder is unremarkable. There is aortic and a ortic branch vessel atherosclerosis. There is no aneurysm. There is no lymphadenopathy. There is no s uspicious or acute osseous finding. IMPRESSION: 1. Distal colonic diverticulosis. There is no convincing diverticulitis. 2. Mild wall thickening involving the transverse colon. This may be physiologic or due to the sequela of prior inflammation. There is no convincing surrounding stranding to suggest acute colitis. 3. Hepatic steatosis. Electronically signed by: Zaira Arevalo MD (03/18/2021 1:16 PM) [id number]
== END ==
LOC: KCIC 08:47
PROVIDERS: ATTEND Internal Medicine Gastroenterology
DX: K57.30 Diverticulosis of large intestine without perforation or abscess without bleeding (principal); K76.0 Fatty (change of) liver, not elsewhere classified; Z90.49 Acquired absence of other specified parts of digestive tract
CPT/HCPCS: 74177; 82565; Q9966; Q9967